=== PATIENT | female | born 1995 | race Caucasian/White ===

== ENCOUNTER 2017-07-28 17:41 | Emergency (ER) | payer OTHER ==
[2017-07-28] MEDS ORDERED: DIPHENHYDRAMINE 25 MG TAB/CAP ONE (19:25)
[2017-07-28] MEDS ORDERED: FAMOTIDINE 20 MG TAB ONE (19:25)
[2017-07-28] MEDS ORDERED: predniSONE 20 MG TAB ONE (19:26)
--- NOTE | 2017-07-28 20:03 | ER ---
Nurse's Notes [facility] Name: Kimmy Archer Age: 22 yrs Sex: Female : 1995 Arrival Date: 07/28/2017 Time: 17:44 Bed 11 Private MD: Diagnosis: Allergic contact dermatitis Presentation: 07/28 17:46 Presenting complaint: Patient states: i have poison fredis that i noticed last night in hj both arms, face, thigh, stomach; its itchy;. Transition of care: patient was not received from another setting of care. Onset of symptoms was July 28, 2017. Care prior to arrival: None. 17:46 Method Of Arrival: Ambulatory 17:46 Acuity: LILIANA 4 hj Triage Assessment: 17:47 General: Appears in no apparent distress. uncomfortable, Behavior is calm, cooperative, hj appropriate for age. Pain: Denies pain. 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 - Social history:: Smoking status: Patient/guardian denies using tobacco. Screenin:36 Abuse screen: Denies threats or abuse. Nutritional screening: No deficits noted. kb1 Tuberculosis screening: No symptoms or risk factors identified. Fall Risk None identified. 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 General: Appears in no apparent distress. Behavior is cooperative. Pain: Denies pain. Neuro: Level of Consciousness is awake, alert, obeys commands, Oriented to person, place, time, situation. Cardiovascular: Patient's skin is warm and dry. Respiratory: Respiratory effort is even, unlabored, Respiratory pattern is regular, symmetrical. GI: No signs and/or symptoms were reported involving the gastrointestinal system. : No signs and/or symptoms were reported regarding the genitourinary system. EENT:. Derm: Rash noted that is itchy, red, on right arm and left arm. 19:52 General: Appears in no apparent distress. Behavior is calm, cooperative, appropriate ao for age. Pain: Denies pain. Neuro: Level of Consciousness is awake, alert, obeys commands, Oriented to person, place, time, situation. Cardiovascular: Patient's skin is warm and dry. Respiratory: Airway is patent Trachea Respiratory effort is even, unlabored, Respiratory pattern is regular, symmetrical. GI: No signs and/or symptoms were reported involving the gastrointestinal system. : No signs and/or symptoms were reported regarding the genitourinary system. EENT: No signs and/or symptoms were reported regarding the EENT system. Derm: Rash noted that is itchy, red, on Arms. Vital Signs: 17:47 BP 103 / 60; Pulse 83; Resp 18; Temp 97.5(TE); Pulse Ox 100% on R/A; Weight 70.31 kg; hj Height 5 ft. 8 in. (172.72 cm); 19:54 BP 110 / 62; Pulse 78; Resp 18; Pulse Ox 98% ; ao 20:23 BP 95 / 48; Pulse 83; Resp 16; Pulse Ox 98% ; ao 17:47 Body Mass Index 23.57 (70.31 kg, 172.72 cm) ED Course: 17:44 Patient arrived in ED. rg4 17:46 Triage completed. hj 17:47 Arm band placed on right wrist. hj 18:22 Caitlin Wadsworth, IMELDA is Primary Nurse. kb1 18:24 Jones Reddy NP is PHCP. pm1 18:24 Tomas Brower MD is Attending Physician. pm1 18:36 Patient has correct armband on for positive identification. Call light in reach. kb1 Security at bedside. Sitting in chair, wheels locked. 19:09 Report given to Jamie SEGURA. kb1 19:09 No provider procedures requiring assistance completed. Patient did not have IV access kb1 during this emergency room visit. 19:52 Jamie Brannon RN is Primary Nurse. ao Administered Medications: 19:11 Drug: Pepcid 20 mg Route: PO; ao 19:11 Drug: Benadryl 25 mg Route: PO; ao 19:11 Drug: predniSONE 60 mg Route: PO; ao Outcome: 20:03 Discharge ordered by . pm1 20:23 Discharged to home ambulatory. ao 20:23 Condition: stable 20:23 Discharge instructions given to patient, Instructed on discharge instructions, follow up and referral plans. Demonstrated understanding of instructions, follow-up care, medications, Prescriptions given X 3. 20:24 Patient left the ED. ao Signatures: Sy Allison, RN RN Jamie Arcos RN RN ao Marinas, Patrick, PANEL MACHINE TENDER PANEL MACHINE TENDER pm1 Kirsty Suazo rg4 Caitlin Wadsworth RN RN kb1 Corrections: (The following items were deleted from the chart) 17:49 17:47 Pulse 83bpm; Resp 18bpm; Pulse Ox 100% RA; Temp 97.5F Temporal; 70.31 kg; Height hj 5 ft. 8 in.; BMI: 23.5; hj
--- NOTE | 2017-07-28 20:03 | EDPHYS ---
Physician Documentation [facility] Name: Kimmy Archer Age: 22 yrs Sex: Female : 1995 Arrival Date: 07/28/2017 Time: 17:44 Bed 11 Private MD: ED Physician Tomas Brower HPI: 07/28 22:00 This 22 yrs old Female presents to ER via Ambulatory with complaints of rash. pm1 22:00 The patient's rash thought to be caused by Contact allergy. The rash is located on the pm1 body diffusely. The rash can be described as macular, papular. Onset: The symptoms/episode began/occurred last night. Associated signs and symptoms: Pertinent positives: itching, sore throat, Pertinent negatives: burning sensation, difficulty breathing, fever, swelling of lips, swelling of tongue. Severity of symptoms: in the emergency department the symptoms are worse. Treatment given at home: Benadryl. The patient has experienced similar episodes in the past, a few times. The patient has not recently seen a physician. Patient is 32 week . Patient with prior exposure to poison fredis that caused her to have some difficulty with breathing and sensation of sore throat. Patient reports diffuse rash. 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 - Social history:: Smoking status: Patient/guardian denies using tobacco. ROS: 22:00 Constitutional: Negative for fever, chills, and weight loss, Eyes: Negative for injury, pm1 pain, redness, and discharge. 22:00 Neck: Negative for injury, pain, and swelling, Cardiovascular: Negative for chest pain, palpitations, and edema, Respiratory: Negative for shortness of breath, cough, wheezing, and pleuritic chest pain, Abdomen/GI: Negative for abdominal pain, nausea, vomiting, diarrhea, and constipation, Back: Negative for injury and pain, : Negative for injury, bleeding, discharge, and swelling, MS/Extremity: Negative for injury and deformity. 22:00 ENT: Positive for sore throat. 22:00 Skin: Positive for rash, diffusely. Exam: 22:00 Constitutional: This is a well developed, well nourished patient who is awake, alert, pm1 and in no acute distress. Head/Face: Normocephalic, atraumatic. Eyes: Pupils equal round and reactive to light, extra-ocular motions intact. Lids and lashes normal. Conjunctiva and sclera are non-icteric and not injected. Cornea within normal limits. Periorbital areas with no swelling, redness, or edema. ENT: Nares patent. No nasal discharge, no septal abnormalities noted. Tympanic membranes are normal and external auditory canals are clear. Oropharynx with no redness, swelling, or masses, exudates, or evidence of obstruction, uvula midline. Mucous membranes moist. Neck: Trachea midline, no thyromegaly or masses palpated, and no cervical lymphadenopathy. Supple, full range of motion without nuchal rigidity, or vertebral point tenderness. No Meningismus. Chest/axilla: Normal chest wall appearance and motion. Nontender with no deformity. No lesions are appreciated. Cardiovascular: Regular rate and rhythm with a normal S1 and S2. No gallops, murmurs, or rubs. Normal PMI, no JVD. No pulse deficits. Respiratory: Lungs have equal breath sounds bilaterally, clear to auscultation and percussion. No rales, rhonchi or wheezes noted. No increased work of breathing, no retractions or nasal flaring. 22:00 Back: No spinal tenderness. No costovertebral tenderness. Full range of motion. 22:00 Abdomen/GI: Inspection: gravid appearance, is noted. 22:00 Skin: consistent with contact dermatitis, and is diffusely located. 22:00 Neuro: Orientation: is normal, Motor: is normal, moves all fours, Gait: is steady, at a normal pace, without difficulty. Vital Signs: 17:47 BP 103 / 60; Pulse 83; Resp 18; Temp 97.5(TE); Pulse Ox 100% on R/A; Weight 70.31 kg; hj Height 5 ft. 8 in. (172.72 cm); 19:54 BP 110 / 62; Pulse 78; Resp 18; Pulse Ox 98% ; ao 20:23 BP 95 / 48; Pulse 83; Resp 16; Pulse Ox 98% ; ao 17:47 Body Mass Index 23.57 (70.31 kg, 172.72 cm) MDM: 18:24 Patient medically screened. pm1 18:49 Data reviewed: vital signs. Data interpreted: Pulse oximetry: on room air is 100 %. pm1 Interpretation: normal. 18:49 ED course: Patient 32 weeks . Patient with allergy to poison fredis and with pm1 exposure yesterday. Patient reports some sore throat scratchiness. Benefits of prednisone outweigh risks. 20:00 ED course: Sore throat sensation resolved and significant improvement in rash. pm1 20:02 Counseling: I had a detailed discussion with the patient and/or guardian regarding: the pm1 historical points, exam findings, and any diagnostic results supporting the discharge/admit diagnosis, the need for outpatient follow up, to return to the emergency department if symptoms worsen or persist or if there are any questions or concerns that arise at home. Administered Medications: 19:11 Drug: Pepcid 20 mg Route: PO; ao 19:11 Drug: Benadryl 25 mg Route: PO; ao 19:11 Drug: predniSONE 60 mg Route: PO; ao Disposition: 07/28/17 20:03 Discharged to Home. Impression: Allergic contact dermatitis. - Condition is Stable. - Discharge Instructions: Contact Dermatitis. - Prescriptions for Benadryl 25 mg Oral Capsule - take 1 capsule by ORAL route every 6 hours As needed; 30 tablet. Pepcid 20 mg Oral Tablet - take 1 tablet by ORAL route every 12 hours for 5 days; 10 tablet. Prednisone 20 mg Oral Tablet - take 2 tablet by ORAL route once daily for 5 days; 10 tablet. - Medication Reconciliation Form, Thank You Letter form. - Follow up: Emergency Department; When: As needed; Reason: Worsening of condition. Follow up: Private Physician; When: 2 - 3 days; Reason: Recheck today's complaints, Continuance of care, Re-evaluation by your physician. - Problem is new. - Symptoms have improved. Addendum: 07/31/2017 07:30 Co-signature as Attending Physician, Tomas Brower MD. g s Signatures: Sy Allison RN RN Jamie Brannon RN RN ao Jones Reddy, HEATING AND VENTILATING TENDER HEATING AND VENTILATING TENDER pm1 Tomas Brower MD MD Caitlin Wadsworth RN RN kb1
[2017-07-28 20:28] VITALS: TEMP 97.5
[2017-07-28 20:29] VITALS: O2SAT 98
[2017-07-28 20:30] VITALS: BP 95/48
== END 2017-07-28 20:24 | disposition home or self-care (01) ==
LOC: ER 17:41
DX: Z3A.32 32 weeks gestation of pregnancy; L23.7 Allergic contact dermatitis due to plants, except food
CPT/HCPCS: 99284; J7512

== ENCOUNTER 2017-09-13 02:13 | Inpatient (IN) | payer OTHER ==
[2017-09-13] MEDS ORDERED: PROMETHAZINE 25 MG/ML VIAL IM PRN (03:04)
[2017-09-13] MEDS ORDERED: BUTORPHANOL 1 MG/ML INJ IV PRN (03:04)
[2017-09-13] MEDS ORDERED: Ringers Lactate 1,000 ML IV PRN (03:04)
[2017-09-13] MEDS ORDERED: CARBOPROST TROME 250 MCG/ML IM PRN (03:04)
[2017-09-13] MEDS ORDERED: METHYLERGONOVINE 0.2MG/ML AMP IM PRN (03:04)
[2017-09-13] MEDS ORDERED: MEPERIDINE HCL 25 MG/0.5 ML IV PRN (03:04)
[2017-09-13 03:41] LABS: RPR Titer ND
[2017-09-13 03:47] LABS: Urine Appearance CLEAR; Urine Bilirubin NEGATIVE (NEG); Urine Blood NEGATIVE (NEG); Urine Color YELLOW; Urine Glucose NEGATIVE (NEG); Urine Protein NEGATIVE (NEG)
[2017-09-13 03:48] LABS: Urine Microscopic Reflex ORDER UMIC
[2017-09-13 03:50] LABS: Absolute Lymphocytes (CBC) 2.1 K/uL (0.7-4.9); Absolute Monocytes 0.6 K/uL (0.1-1.3); Absolute Neutrophil 7.2 K/uL (1.8-8.0); Basophils % 0.5 % (0-1.3); Eosinophils % 2.2 % (0-4.4); Hematocrit 32.7 % (36.0-45.0); Lymphocytes % 20.9 % (15.3-44.8); MCH 27.1 pg (27.0-35.0); MCV 82.7 fL (80-100); MPV 9.1 fL (7.6-11.3); Monocytes % 6.2 % (3.3-12.3); RBC Red Blood Cell Count 3.95 M/uL (3.86-4.86)
[2017-09-13 03:53] VITALS: BMI 26.3
[2017-09-13] MEDS ORDERED: Ringers Lactate 1,000 ML IV SCH (04:00)
[2017-09-13] MEDS ORDERED: FENTANYL CITR 100 MCG/2 ML IV ONE (04:08)
[2017-09-13] MEDS ORDERED: ROPIVACAINE HCL 100 ML IV PRN (04:08)
[2017-09-13] MEDS ORDERED: ROPIVACAINE HCL 2 MG/ML 100ML IV ONE (04:09)
[2017-09-13] MEDS ORDERED: LIDOCAINE 1% 20 ML MDV ONE (04:19)
[2017-09-13] MEDS ORDERED: OXYTOCIN/LR 20 UNIT/1,000 ML BAG IV ONE (04:20)
[2017-09-13 04:34] LABS: Urine RBC <5 /HPF (NONE SEEN)
[2017-09-13 04:35] LABS: Urine Bacteria 20-50 /HPF (<20); Urine Culture Reflex Order REFLEXED
[2017-09-13 04:50] LABS: RPR (Rapid Plasma Reagin) NON-REACT (NON-REACT)
[2017-09-13] MEDS ORDERED: OXYTOCIN/LR 20 UNIT/1,000 ML BAG IV SCH (05:00)
[2017-09-13] MEDS ORDERED: ROPIVACAINE HCL 0 ML ONE (05:06)
[2017-09-13] MEDS ORDERED: DIPHENHYDRAMINE 25 MG TAB/CAP PO PRN (05:55)
[2017-09-13] MEDS ORDERED: IBUPROFEN 200 MG TAB PO PRN (05:55)
[2017-09-13] MEDS ORDERED: BISACODYL 10 MG RECTAL SUPP RECT PRN (05:55)
[2017-09-13] MEDS ORDERED: ACETAMINOPHEN 500 MG TAB PO PRN (05:55)
[2017-09-13] MEDS ORDERED: DOCUSATE NA/SENNA CONC 1 TAB PO PRN (05:55)
[2017-09-13] MEDS ORDERED: OXYTOCIN/LR 20 UNITS/1,000 ML BAG IV SCH (06:00)
--- NOTE | 2017-09-13 06:34 | PREOPHP ---
Date of Admission: 09/13/2017 A 22-year-old, 5, para 3, AB1, 38 weeks and 5 days, patient of [facility], came in in active labor. Noted to be approximately 4 cm on admission, vertex, -2 to -3 station, henry regularly. When first examined by myself was 7 to 8 cm and said she needed to push. Rupture of membranes was perfor med. Clear fluid obtained. The patient began pushing against advice, did dilate to about 8.5 to 9, but requested epidural and we told her if she does not push we could possibly have time to do the epi dural. Anesthesia has been notified. Baby is at about 0 station. We will see if they have time to complete the epidural. She has recollection of being beta strep negative. We have no other lab that is pending. Her vital signs are all stable. The baby looks good. Anticipate delivery rel atively soon. PIOTR/JJ Voice ID: [id number]
--- NOTE | 2017-09-13 06:55 | OP ---
Surgeon: Endy Olivo MD A 22-year-old, 5, para 3, [facility] patient, drop in, came in active labor, 4 cm on admission, con tracting every 2 to 3 minutes. When first examined by myself was 7 to 8 cm, rupture of membranes, cl ear fluid. Epidural anesthesia was established at the patient's request. Second stage of 10 minutes or less. Spontaneous vaginal delivery of an estimated 8 pounds or more male infant. Apgars 9 and 9 . No episiotomy. No laceration. Schultze delivery of the placenta. Uterus contracted down well wi th IV drip Pitocin. Estimated blood loss 250 cc or less. All lab is pending at this time. Beta str ep test was negative according to the patient. Final Diagnoses: Intrauterine gestation, 38 weeks 5 days, [facility], drop in delivery, beta strep negativ e, other labs pending. PIOTR/JJ Voice ID: [id number] Report ID: [id number]
[2017-09-13] MEDS: Oxycodone HCl/Acetaminophen 1 TAB TAB PO PRN ×2 (11:29→18:01)
[2017-09-14] MEDS: Oxycodone HCl/Acetaminophen 1 TAB TAB PO PRN ×2 (05:25→09:16)
[2017-09-14] MEDS ORDERED: Tdap (Diph,Pertuss(Acell),Tet Vac) 0.5 ML SYR IMVAC ONE (08:51)
[2017-09-14 10:12] VITALS: BP 118/58; TEMP 98
--- NOTE | 2017-09-14 16:10 | DS ---
Date of Discharge: 09/14/2017 Hospital Course: A 22-year-old 4, para 2, AB 1, at 38 weeks 5 days, [facility] patient, came in ac tive labor. Subsequently delivered an 8 pounds estimated, male . Apgars 9 and 9. Epidural an esthesia. No episiotomy. No laceration. Schultze delivery of the placenta, which was inspected and noted to be intact and normal. Less than 250 cc blood loss. Beta-strep negative. Rh positive, imm une to Rubella. . Afebrile, ambulating and voiding. Lochia is normal. She will be dismi ssed later this morning to report back either at [facility] or to my office in 6 weeks for followup, to rep ort any temperature elevation of 100 degrees or greater, severe pain, heavy bleeding, or any other ty pe of abnormalities. Dismissed with tramadol for analgesia, although she knows this goes to the [facility], and she may choose to take Motrin instead. Final Diagnoses: Term intrauterine 38 weeks 5 days, vaginal delivery, epidural anesthesia. Tdap offered. PIOTR/JJ Voice ID: [id number] Report ID: [id number]
[2017-09-17 05:31] LABS: HBsAG Nonreactive (Nonreactive)
== END 2017-09-14 10:00 | disposition home or self-care (01) | DRG 775 ==
LOC: L&D 02:13 → 2ND-WC 02:41
PROVIDERS: ADMIT Specialist; ATTEND Specialist
PROC: 10E0XZZ Delivery of Products of Conception, External Approach (ICD-10-PCS; principal; 2017-09-13)
PROC: 10907ZC Drainage of Amniotic Fluid, Therapeutic from Products of Conception, Via Natural or Artificial Opening (ICD-10-PCS; 2017-09-13)
DX: O80 Encounter for full-term uncomplicated delivery (principal); Z3A.38 38 weeks gestation of pregnancy; Z37.0 Single live birth
CPT/HCPCS: 36415; 81003; 81015; 85025; 86592; 86762; 86850; 86900; 86901; 87086; 87088; 87340; 90715; G0433; J0595; J2210; J2550; J2590; J2795; J3010

== ENCOUNTER 2019-03-09 15:57 | Emergency (ER) | payer OTHER, SELFPAY ==
--- NOTE | 2019-03-09 18:34 | ER ---
Nurse's Notes [facility] Name: Kimmy Archer Age: 24 yrs Sex: Female : 1995 Arrival Date: 03/09/2019 Time: 16:01 Bed 27 Private MD: Diagnosis: Presentation: 03/09 16:20 Presenting complaint: N/V/D and lower abdominal pain that radiates to low back x 3 hb days. Denies fever. Tolerating fluids. Transition of care: patient was not received from another setting of care. Onset of symptoms was March 06, 2019. Risk Assessment: Do you want to hurt yourself or someone else? Patient reports no desire to harm self or others. Care prior to arrival: None. 16:20 Method Of Arrival: Ambulatory hb 16:20 Acuity: LILIANA 3 hb Historical: - Allergies: 16:22 No Known Allergies; hb - Home Meds: 16:22 None [Active]; hb - PMHx: 16:22 None; hb - PSHx: 16:22 None; hb - Immunization history:: Adult Immunizations up to date. - Social history:: Smoking status: Patient/guardian denies using tobacco. - Ebola Screening: : No symptoms or risks identified at this time. Vital Signs: 16:22 BP 92 / 53; Pulse 93; Resp 16; Temp 99; Pulse Ox 98% ; Weight 63.5 kg; Height 5 ft. 8 hb in. (172.72 cm); Pain 5/10; 16:22 Body Mass Index 21.29 (63.50 kg, 172.72 cm) hb ED Course: 16:01 Patient arrived in ED. mr 16:21 Triage completed. hb 16:22 Arm band placed on. hb 17:20 Patient's name was called from ER lobby. No response. hb 17:40 Patient's name was called from ER lobby. No response. hb 18:20 Patient's name was called from ER lobby. No response. Unable to locate patient. Will hb disposition as left without being seen by a provider. Administered Medications: No medications were administered Outcome: 18:33 Patient left the ED. hb Signatures: Carrie Harris Heather RN RN hb
[2019-03-09 20:11] VITALS: BP 92/53; TEMP 99; O2SAT 98
--- OUTSIDE RECORDS SUMMARY | 2019-03-15 00:01 | XMS REPORT ---
:1995 [facility] Address [address] [place] [address] Dr. Boyce [address] [place] [id number] Care Team Providers Name Role Phone Unavailable Unavailable Unavailable Problems This patient has no known problems. Allergies, Adverse Reactions, Alerts This patient has no known allergies or adverse reactions. Medications This patient has no known medications.
== END 2019-03-09 18:33 | disposition left against medical advice (07) ==
LOC: ER 15:57
DX: Z53.21 Procedure and treatment not carried out due to patient leaving prior to being seen by health care provider (principal)
CPT/HCPCS: 99281

== ENCOUNTER 2019-03-17 16:14 | Emergency (ER) | payer SELFPAY ==
--- OUTSIDE RECORDS SUMMARY | 2019-03-17 16:16 | XMS REPORT ---
:1995 [facility] Address [address] [place] [address] Dr. Boyce [address] [place] [id number] Care Team Providers Name Role Phone Unavailable Unavailable Unavailable Problems This patient has no known problems. Allergies, Adverse Reactions, Alerts This patient has no known allergies or adverse reactions. Medications This patient has no known medications.
[2019-03-17 16:51] LABS: Absolute Lymphocytes (CBC) 1.8 K/uL (0.7-4.9); Basophils % 0.8 % (0-1.3); Hematocrit 35.7 % (36.0-45.0); Lymphocytes % 22.6 % (15.3-44.8); MPV 7.8 fL (7.6-11.3); RBC Red Blood Cell Count 3.96 M/uL (3.86-4.86)
[2019-03-17] MEDS ORDERED: ONDANSETRON 4 MG/2 ML VIAL ONE (17:00)
[2019-03-17 17:02] LABS: Urine Blood 1+ (NEG); Urine Glucose NEGATIVE (NEG); Urine Protein NEGATIVE (NEG)
[2019-03-17 17:14] LABS: ALT/SGPT 16 U/L (12-78); AST/SGOT 13 U/L (15-37); Albumin 3.4 g/dL (3.4-5.0); Alkaline Phosphatase 45 U/L (45-117); BUN Blood Urea Nitrogen 5 mg/dL (7-18); Bicarbonate 27 mmol/L (21-32); Bilirubin Direct 0.1 mg/dL (0-0.2); Bilirubin Total 0.3 mg/dL (0.2-1.0); Glucose Level 97 mg/dL (74-106); Lipase 54 U/L (73-393); Protein, Total 6.6 g/dL (6.4-8.2); Sodium Level 139 mmol/L (136-145)
[2019-03-17 17:27] LABS: Urine Bacteria <20 /HPF (<20); Urine Culture Reflex Order NOT NEEDED; Urine Mucus 1+ /HPF (NONE SEEN)
--- NOTE | 2019-03-17 17:52 | RAD REPORT ---
EXAM DESCRIPTION: US - Transvaginal OB - 03/17/2019 5:28 pm CLINICAL HISTORY: with pelvic pain COMPARISON: None. FINDINGS: An intrauterine in breech presentation is present. The crown-rump length 6.7 jesse timeters. . Cardiac activity 152 beats per minute. The placenta is posterior fundal Neither ovary was visualized. . An adnexal mass is not noted. No significant free fluid is seen. Cervix measures 2.7 centimeters IMPRESSION: Single live intrauterine with an estimated gestational age 13 weeks 0 days ED D 09/22/2019. If a survey is desired it should be performed in approximately 5 weeks
--- NOTE | 2019-03-17 18:08 | ER ---
Nurse's Notes [facility] Name: Kimmy Archer Age: 24 yrs Sex: Female : 1995 Arrival Date: 03/17/2019 Time: 16:16 Bed 6 Private MD: Diagnosis: Lower abdominal pain, unspecified;Vomiting of , unspecified Presentation: 03/17 16:21 Presenting complaint: Lower abdominal pain and N/V x 4 days. Not tolerating fluids. hb Denies fever. Transition of care: patient was not received from another setting of care. Onset of symptoms was March 13, 2019. Risk Assessment: Do you want to hurt yourself or someone else? Patient reports no desire to harm self or others. Care prior to arrival: None. 16:21 Method Of Arrival: Ambulatory hb 16:21 Acuity: LILIANA 3 hb 16:40 Initial Sepsis Screen: Does the patient meet any 2 criteria? No. Patient's initial sv sepsis screen is negative. Does the patient have a suspected source of infection? No. Patient's initial sepsis screen is negative. 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 - Social history:: Smoking status: Patient uses tobacco products, smokes one pack cigarettes per day. - Ebola Screening: : No symptoms or risks identified at this time. Screenin:40 Abuse screen: Denies threats or abuse. Denies injuries from another. Nutritional sv screening: No deficits noted. Tuberculosis screening: No symptoms or risk factors identified. Fall Risk None identified. Assessment: 16:35 General: Appears in no apparent distress. uncomfortable, slender, well developed, sv Behavior is calm, cooperative, appropriate for age. Pain: Complains of pain in suprapubic area Pain currently is 4 out of 10 on a pain scale. Neuro: Level of Consciousness is awake, alert, obeys commands, Oriented to person, place, time, situation, Gait is steady. Respiratory: Airway is patent Respiratory effort is even, unlabored, Respiratory pattern is regular, symmetrical. GI: Abdomen is round Reports lower abdominal pain, intolerance of food, nausea, vomiting. EENT: Sclera/Cornea are reddened in right eye and left eye. Derm: Skin is pink, warm \T\ dry. 17:09 Reassessment: Called outside lab and informed that I would be sending a lab label for sv an HCG to be ran as well, blood is in the outside lab. Ok to send label. 18:28 Reassessment: Patient appears in no apparent distress at this time. No changes from sv previously documented assessment. Patient and/or family updated on plan of care and expected duration. Pain level reassessed. Patient is alert, oriented x 3, equal unlabored respirations, skin warm/dry/pink. Vital Signs: 16:22 BP 106 / 54; Pulse 88; Resp 16; Temp 98.1; Pulse Ox 100% on R/A; Weight 61.23 kg; hb Height 5 ft. 8 in. (172.72 cm); Pain 4/10; 17:41 BP 97 / 60; Pulse 62; Resp 16; Pulse Ox 100% ; sv 18:27 BP 91 / 60; Pulse 61; Resp 16; Pulse Ox 100% ; sv 16:22 Body Mass Index 20.53 (61.23 kg, 172.72 cm) hb ED Course: 16:16 Patient arrived in ED. rg4 16:22 Triage completed. hb 16:22 Arm band placed on. hb 16:25 Kris Warner PA is PHCP. jr8 16:25 Rene Chahal MD is Attending Physician. jr8 16:28 Maty Lama, IMELDA is Primary Nurse. iw 16:40 Patient has correct armband on for positive identification. Placed in gown. Bed in low sv position. Call light in reach. Adult w/ patient. Door closed. Warm blanket given. Head of bed elevated. 16:40 Initial lab(s) drawn, by me, sent to lab. Inserted saline lock: 20 gauge in right sv antecubital area, using aseptic technique. Blood collected. Flushed right antecubital with 5 ml normal saline. 16:44 Nurse Practitioner and/or Physician Principal Investigator to see patient. sv 17:12 Patient taken to ultrasound. via wheelchair. sv 17:29 US Transvaginal Ob In Process Unspecified. EDMS 17:42 Awaiting lab results, Awaiting radiology results. sv 18:28 No provider procedures requiring assistance completed. IV discontinued, intact, sv bleeding controlled, No redness/swelling at site. Pressure dressing applied. Administered Medications: 16:57 Not Given (Physician Discretion): TORadol - Ketorolac 15 mg IVP once jr8 17:05 Drug: Zofran 4 mg Route: IVP; Site: right antecubital; sv 17:45 Follow up: Response: No adverse reaction; Nausea is decreased sv 18:26 Drug: Potassium Chloride 40 mEq Route: PO; sv 18:26 Follow up: Response: Medication administered at discharge. sv Outcome: 18:08 Discharge ordered by MD. jr8 18:28 Discharged to home ambulatory, with family. sv 18:28 Condition: stable 18:28 Discharge instructions given to patient, Instructed on discharge instructions, follow up and referral plans. medication usage, Demonstrated understanding of instructions, follow-up care, medications, Prescriptions given X 1. 18:28 Patient left the ED. sv Signatures: Dispatcher [employer] Maty Saez RN RN sv Williams, Irene, RN RN iw Roszak, Josh, PA PA jr8 Faby Adams RN RN hb Garcia, Rubi rg4
--- NOTE | 2019-03-17 18:08 | EDPHYS ---
Physician Documentation [facility] Name: Kimmy Archer Age: 24 yrs Sex: Female : 1995 Arrival Date: 03/17/2019 Time: 16:16 Bed 6 Private MD: ED Physician Rene Chahal HPI: 03/17 17:05 This 24 yrs old Female presents to ER via Ambulatory with complaints of jr8 Vomiting, Abdominal Pain. 17:05 The patient presents to the emergency department with nausea, vomiting, abdominal pain, jr8 of the suprapubic area. Onset: The symptoms/episode began/occurred gradually, 1 week(s) ago. Possible causes: unknown. The symptoms are aggravated by nothing. The symptoms are alleviated by nothing. Associated signs and symptoms: The patient has no apparent associated signs or symptoms. Severity of symptoms: At their worst the symptoms were moderate in the emergency department the symptoms are unchanged. The patient has not experienced similar symptoms in the past. The patient has not recently seen a physician. DENTAL RESIDENT: 16:22 LMP 03/05/2019 hb Historical: - Allergies: 16:24 No Known Allergies; hb - Home Meds: 16:24 None [Active]; hb - PMHx: 16:24 None; hb - PSHx: 16:24 None; hb - Immunization history:: Adult Immunizations up to date. - Social history:: Smoking status: Patient uses tobacco products, smokes one pack cigarettes per day. - Ebola Screening: : No symptoms or risks identified at this time. ROS: 17:05 Eyes: Negative for injury, pain, redness, and discharge, ENT: Negative for injury, jr8 pain, and discharge, Neck: Negative for injury, pain, and swelling, Cardiovascular: Negative for chest pain, palpitations, and edema, Respiratory: Negative for shortness of breath, cough, wheezing, and pleuritic chest pain, Back: Negative for injury and pain, MS/Extremity: Negative for injury and deformity, Skin: Negative for injury, rash, and discoloration, Neuro: Negative for headache, weakness, numbness, tingling, and seizure. 17:05 Abdomen/GI: Positive for abdominal pain, nausea and vomiting, Negative for diarrhea, abdominal cramps, abdominal distension, anorexia, dysphagia, hematemesis, black/tarry stool, rectal pain, rectal bleeding, bowel incontinence, flatulence. Exam: 17:05 Eyes: Pupils equal round and reactive to light, extra-ocular motions intact. Lids and jr8 lashes normal. Conjunctiva and sclera are non-icteric and not injected. Cornea within normal limits. Periorbital areas with no swelling, redness, or edema. ENT: Nares patent. No nasal discharge, no septal abnormalities noted. Tympanic membranes are normal and external auditory canals are clear. Oropharynx with no redness, swelling, or masses, exudates, or evidence of obstruction, uvula midline. Mucous membranes moist. Neck: Trachea midline, no thyromegaly or masses palpated, and no cervical lymphadenopathy. Supple, full range of motion without nuchal rigidity, or vertebral point tenderness. No Meningismus. Cardiovascular: Regular rate and rhythm with a normal S1 and S2. No gallops, murmurs, or rubs. Normal PMI, no JVD. No pulse deficits. Respiratory: Lungs have equal breath sounds bilaterally, clear to auscultation and percussion. No rales, rhonchi or wheezes noted. No increased work of breathing, no retractions or nasal flaring. Back: No spinal tenderness. No costovertebral tenderness. Full range of motion. Skin: Warm, dry with normal turgor. Normal color with no rashes, no lesions, and no evidence of cellulitis. MS/ Extremity: Pulses equal, no cyanosis. Neurovascular intact. Full, normal range of motion. Neuro: Awake and alert, GCS 15, oriented to person, place, time, and situation. Cranial nerves II-XII grossly intact. Motor strength 5/5 in all extremities. Sensory grossly intact. Cerebellar exam normal. Normal gait. 17:05 Abdomen/GI: Inspection: abdomen appears normal, Bowel sounds: active, all quadrants, Palpation: soft, in all quadrants, mild abdominal tenderness, in the suprapubic area, mass, is not appreciated, rebound tenderness, is not appreciated, voluntary guarding, is not appreciated, involuntary guarding, is not appreciated, no appreciated organomegaly, Indicators: McBurney's point is not tender, Stern's sign is negative, Rovsing's sign is negative, Liver: tenderness, is not appreciated. Vital Signs: 16:22 BP 106 / 54; Pulse 88; Resp 16; Temp 98.1; Pulse Ox 100% on R/A; Weight 61.23 kg; hb Height 5 ft. 8 in. (172.72 cm); Pain 4/10; 17:41 BP 97 / 60; Pulse 62; Resp 16; Pulse Ox 100% ; sv 18:27 BP 91 / 60; Pulse 61; Resp 16; Pulse Ox 100% ; sv 16:22 Body Mass Index 20.53 (61.23 kg, 172.72 cm) hb MDM: 16:25 Patient medically screened. [facility] 18:06 Data reviewed: vital signs, nurses notes, lab test result(s), radiologic studies, [facility] ultrasound. Data interpreted: Pulse oximetry: on room air is 100 %. Interpretation: normal. Counseling: I had a detailed discussion with the patient and/or guardian regarding: the historical points, exam findings, and any diagnostic results supporting the discharge/admit diagnosis, lab results, radiology results, the need for outpatient follow up, an OB/Gyne specialist, to return to the emergency department if symptoms worsen or persist or if there are any questions or concerns that arise at home. 03/17 16:33 Order name: Basic Metabolic Panel; Complete Time: 17:14 [facility] 03/17 16:33 Order name: CBC with Diff; Complete Time: 17:14 [facility] 03/17 16:33 Order name: Creatinine for Radiology; Complete Time: 17:14 [facility] 03/17 16:33 Order name: Hepatic Function; Complete Time: 17:14 [facility] 03/17 16:33 Order name: Lipase; Complete Time: 17:14 [facility] 03/17 16:51 Order name: Urine Microscopic Only; Complete Time: 17:36 [facility] 03/17 16:33 Order name: IV Saline Lock; Complete Time: 16:44 [facility] 03/17 16:57 Order name: HCG-Quantitative; Complete Time: 18:26 [facility] 03/17 16:57 Order name: US Transvaginal Ob; Complete Time: 18:06 [facility] 03/17 17:01 Order name: Urine Dipstick--Ancillary (enter results); Complete Time: 17:14 03/17 17:01 Order name: Urine --Ancillary (enter results); Complete Time: 17:14 03/17 16:33 Order name: Labs collected and sent; Complete Time: 16:44 [facility] 03/17 16:50 Order name: Urine Test (obtain specimen); Complete Time: 16:52 jr8 03/17 16:50 Order name: Urine Dipstick-Ancillary (obtain specimen); Complete Time: 17:12 8 Administered Medications: 16:57 Not Given (Physician Discretion): TORadol - Ketorolac 15 mg IVP once jr8 17:05 Drug: Zofran 4 mg Route: IVP; Site: right antecubital; sv 17:45 Follow up: Response: No adverse reaction; Nausea is decreased sv 18:26 Drug: Potassium Chloride 40 mEq Route: PO; sv 18:26 Follow up: Response: Medication administered at discharge. sv Disposition: 03/17/19 18:08 Discharged to Home. Impression: Lower abdominal pain, unspecified, Vomiting of , unspecified. - Condition is Stable. - Discharge Instructions: Abdominal Pain, Adult, Morning Sickness. - Prescriptions for promethazine 25 mg Oral Tablet - take 1 tablet by ORAL route every 6 hours As needed; 20 tablet. - Medication Reconciliation Form, Thank You Letter, Antibiotic Education, Prescription Opioid Use form. - Follow up: Private Physician; When: 2 - 3 days; Reason: Recheck today's complaints, Continuance of care, Re-evaluation by your physician. - Problem is new. - Symptoms have improved. Addendum: 03/20/2019 19:33 Co-signature as Attending Physician, Rene Chahal MD. r n Signatures: Dispatcher [employer] Maty Saez RN RN sv Nieto, Roman, MD MD rn Roszak, Josh, PA PA jr8 Faby Adams RN RN Corrections: (The following items were deleted from the chart) 03/17 18:28 18:08 03/17/2019 18:08 Discharged to Home. Impression: Lower abdominal pain, sv unspecified; Vomiting of , unspecified. Condition is Stable. Forms are Medication Reconciliation Form, Thank You Letter, Antibiotic Education, Prescription Opioid Use. Follow up: Private Physician; When: 2 - 3 days; Reason: Recheck today's complaints, Continuance of care, Re-evaluation by your physician. Problem is new. Symptoms have improved. jr8
[2019-03-17] MEDS ORDERED: POTASSIUM CL SA 10 MEQ TAB PO ONE (18:18)
[2019-03-17 19:34] VITALS: TEMP 98.1; O2SAT 100
[2019-03-17 19:37] VITALS: BP 91/60
== END 2019-03-17 18:28 | disposition home or self-care (01) ==
LOC: ER 16:14
DX: O21.8 Other vomiting complicating pregnancy (principal); R10.30 Lower abdominal pain, unspecified; Z3A.13 13 weeks gestation of pregnancy; F17.210 Nicotine dependence, cigarettes, uncomplicated
CPT/HCPCS: 36415; 76817; 80048; 80076; 81003; 81015; 81025; 83690; 84702; 85025; 96374; 99284; J2405

== ENCOUNTER 2019-10-11 09:23 | Emergency (ER) | payer OTHER ==
[2019-10-11] MEDS ORDERED: ACETAMINOPHEN 500 MG TAB ONE (10:46)
--- NOTE | 2019-10-11 11:23 | EDPHYS ---
Physician Documentation [facility] Name: Kimmy Archer Age: 24 yrs Sex: Female : 1995 Arrival Date: 10/11/2019 Time: 09:27 Bed 8 Private MD: Maty Petersen ED Physician Juan Carlos Kilpatrick HPI: 10/11 07:26 This 24 yrs old Female presents to ER via Ambulatory with complaints of Fall kdr Injury, Facial Injury. 07:26 Details of fall: The patient fell from an upright position, while walking. Onset: The kdr symptoms/episode began/occurred suddenly, today. Associated injuries: The patient sustained Lower lip and left anterior tibia. Severity of symptoms: At their worst the symptoms were very mild, in the emergency department the symptoms are unchanged. The patient has not experienced similar symptoms in the past. The patient has not recently seen a physician. Historical: - Allergies: 10/10 10:07 No Known Allergies; ss - Home Meds: 10:07 None [Active]; ss - PMHx: 10:07 None; ss - PSHx: 10:07 None; ss - Immunization history:: Adult Immunizations up to date. - Social history:: Smoking status: Patient denies any tobacco usage or history of. ROS: 10/11 07:26 Constitutional: Negative for fever, chills, and weight loss, Eyes: Negative for injury, kdr pain, redness, and discharge, Neck: Negative for injury, pain, and swelling, Cardiovascular: Negative for chest pain, palpitations, and edema, Respiratory: Negative for shortness of breath, cough, wheezing, and pleuritic chest pain, Abdomen/GI: Negative for abdominal pain, nausea, vomiting, diarrhea, and constipation, Back: Negative for injury and pain, : Negative for injury, bleeding, discharge, and swelling, MS/Extremity: Negative for injury and deformity, Neuro: Negative for headache, weakness, numbness, tingling, and seizure activity. Psych: Negative for depression, anxiety, suicide ideation, homicidal ideation, and hallucinations, Allergy/Immunology: Negative for hives, rash, and allergies, Endocrine: Negative for neck swelling, polydipsia, polyuria, polyphagia, and marked weight changes, Hematologic/Lymphatic: Negative for swollen nodes, abnormal bleeding, and unusual bruising. Skin: Positive for abrasion(s), of the lower sharan border and left mahajan. Exam: 07:26 Constitutional: This is a well developed, well nourished patient who is awake, alert, kdr and in no acute distress. Head/Face: Normocephalic, atraumatic. Eyes: Pupils equal round and reactive to light, extra-ocular motions intact. Lids and lashes normal. Conjunctiva and sclera are non-icteric and not injected. Cornea within normal limits. Periorbital areas with no swelling, redness, or edema. Neck: Trachea midline, no thyromegaly or masses palpated, and no cervical lymphadenopathy. Supple, full range of motion without nuchal rigidity, or vertebral point tenderness. No Meningismus. Chest/axilla: Normal chest wall appearance and motion. Nontender with no deformity. No lesions are appreciated. Cardiovascular: Regular rate and rhythm with a normal S1 and S2. No gallops, murmurs, or rubs. Normal PMI, no JVD. No pulse deficits. Respiratory: Lungs have equal breath sounds bilaterally, clear to auscultation and percussion. No rales, rhonchi or wheezes noted. No increased work of breathing, no retractions or nasal flaring. Abdomen/GI: Soft, non-tender, with normal bowel sounds. No distension or tympany. No guarding or rebound. No evidence of tenderness throughout. Back: No spinal tenderness. No costovertebral tenderness. Full range of motion. MS/ Extremity: Pulses equal, no cyanosis. Neurovascular intact. Full, normal range of motion. Neuro: Awake and alert, GCS 15, oriented to person, place, time, and situation. Cranial nerves II-XII grossly intact. Motor strength 5/5 in all extremities. Sensory grossly intact. Cerebellar exam normal. Normal gait. Psych: Awake, alert, with orientation to person, place and time. Behavior, mood, and affect are within normal limits. 07:26 Skin: injury, abrasion(s), small abrasion noted, of the lower sharan border and left mahajan. Vital Signs: 10/10 10:04 BP 110 / 73; Pulse 81; Resp 15; Temp 98.6(TE); Pulse Ox 99% on R/A; Weight 61.23 kg; ss Height 5 ft. 8 in. (172.72 cm); Pain 12/12; 11:26 BP 109 / 69; Pulse 75; Resp 17; Temp 98.6; Pulse Ox 98% ; bp 10:04 Body Mass Index 20.53 (61.23 kg, 172.72 cm) MDM: 11:22 Patient medically screened. kdr 10/11 07:26 Data reviewed: vital signs, nurses notes. Counseling: I had a detailed discussion with kdr the patient and/or guardian regarding: the historical points, exam findings, and any diagnostic results supporting the discharge/admit diagnosis, the need for outpatient follow up. 10/10 10:28 Order name: Corrina. Order: clean and dress wounds on lip; Complete Time: 10:56 kdr Administered Medications: 10/10 10:40 Drug: Tylenol 1000 mg Route: PO; bp 11:26 Follow up: Response: Pain is decreased bp Disposition: 10/11/19 11:22 Discharged to Home. Impression: Facial abrasions/contusions, left tibial abrasions. - Condition is Stable. - Discharge Instructions: Contusion, [id number], Abrasion, Hqqv-[id number], Facial or Scalp Contusion, [id number]. - Medication Reconciliation Form, Thank You Letter, Work release form form. - Follow up: Juan Carlos Kilpatrick MD; When: 2 - 3 days; Reason: If symptoms return, Further diagnostic work-up, Recheck today's complaints, Continuance of care, Re-evaluation by your physician. - Problem is new. - Symptoms have improved. Signatures: Juan Carlos Kilpatrick MD MD kdr Diamond Lan RN RN Bang Browne RN RN jl7 Neri Booker, RN RN bp Corrections: (The following items were deleted from the chart) 11:30 11:22 10/11/2019 11:22 Discharged to Home. Impression: Facial abrasions/contusions, jl7 left tibial abrasions. Condition is Stable. Forms are Medication Reconciliation Form, Thank You Letter, Antibiotic Education, Prescription Opioid Use. Follow up: Dr. Juan Carlos Kilpatrick; When: 2 - 3 days; Reason: If symptoms return, Further diagnostic work-up, Recheck today's complaints, Continuance of care, Re-evaluation by your physician. Problem is new. Symptoms have improved. kdr
--- NOTE | 2019-10-11 11:23 | ER ---
Nurse's Notes [facility] Name: Kimmy Archer Age: 24 yrs Sex: Female : 1995 Arrival Date: 10/11/2019 Time: 09:27 Bed 8 Private MD: Maty Petersen Diagnosis: Facial abrasions/contusions, left tibial abrasions Presentation: 10/10 10:04 Chief complaint: Patient states: R lower lip laceration and abrasion to L mahajan that ss occurred after falling down stairs this morning at 0800. Coronavirus screen: Proceed with normal triage. Patient denies a cough. Patient denies shortness of breath or difficulty breathing. Patient denies measured and/or subjective temperature greater than 100.4F prior to today's visit. Patient denies travel on a cruise ship or to a country the [facility] currently lists as an affected area. Patient denies contact with known and/or suspected case of COVID-19. Ebola Screen: Patient denies exposure to infectious person. Patient denies travel to an Ebola-affected area in the 21 days before illness onset. Initial Sepsis Screen: Does the patient meet any 2 criteria? No. Patient's initial sepsis screen is negative. Does the patient have a suspected source of infection? No. Patient's initial sepsis screen is negative. Risk Assessment: Do you want to hurt yourself or someone else? Patient reports no desire to harm self or others. Onset of symptoms was October 11, 2019. 10:04 Method Of Arrival: Ambulatory ss 10:04 Acuity: LILIANA 4 ss Triage Assessment: 10:05 General: Appears in no apparent distress. comfortable, Behavior is calm, cooperative, bp appropriate for age. Pain: Denies pain. EENT: No deficits noted. Neuro: No deficits noted. Cardiovascular: No deficits noted. Respiratory: No deficits noted. GI: No signs and/or symptoms were reported involving the gastrointestinal system. : No signs and/or symptoms were reported regarding the genitourinary system. Derm: No deficits noted. Musculoskeletal: No deficits noted. Injury Description: Abrasion sustained to left mahajan Laceration sustained to mouth. Historical: - Allergies: 10:07 No Known Allergies; ss - Home Meds: 10:07 None [Active]; ss - PMHx: 10:07 None; ss - PSHx: 10:07 None; ss - Immunization history:: Adult Immunizations up to date. - Social history:: Smoking status: Patient denies any tobacco usage or history of. Screenin:05 Abuse screen: Denies threats or abuse. Denies injuries from another. Nutritional bp screening: No deficits noted. Tuberculosis screening: No symptoms or risk factors identified. Fall Risk Fall in past 12 months (25 points). No secondary diagnosis (0 pts). No IV (0 pts). Ambulatory Aid- None/Bed Rest/Nurse Assist (0 pts). Gait- Normal/Bed Rest/Wheelchair (0 pts) Mental Status- Oriented to own ability (0 pts). Total Brown Fall Scale indicates Low Risk Score (25-44 pts). Fall prevention measures have been instituted. Side Rails Up X 2 Placed close to Nursing Station Frequent Obs/Assesments occuring As available Patient and Family Educated on Fall Prevention Program and strategies. Assessment: 10:05 General: SEE TRIAGE NOTE. bp 11:26 Reassessment: PT D/C HOME AMBULATORY, DX WITH FACIAL AND LEFT TIBIAL ABRASIONS. bp Vital Signs: 10:04 BP 110 / 73; Pulse 81; Resp 15; Temp 98.6(TE); Pulse Ox 99% on R/A; Weight 61.23 kg; ss Height 5 ft. 8 in. (172.72 cm); Pain 8/10; 11:26 BP 109 / 69; Pulse 75; Resp 17; Temp 98.6; Pulse Ox 98% ; bp 10:04 Body Mass Index 20.53 (61.23 kg, 172.72 cm) ED Course: 09:27 Patient arrived in ED. mr 09:27 Maty Petersen is Private Physician. mr 10:06 Triage completed. ss 10:07 Arm band placed on right wrist. ss 10:10 Patient has correct armband on for positive identification. Bed in low position. Call bp light in reach. Side rails up X2. 10:21 Juan Carlos Kilpatrick MD is Attending Physician. kdr 10:39 Neri Booker, IMELDA is Primary Nurse. bp 11:20 Juan Carlos Kilpatrick MD is Referral Physician. kdr 11:26 No provider procedures requiring assistance completed. Patient did not have IV access bp during this emergency room visit. Administered Medications: 10:40 Drug: Tylenol 1000 mg Route: PO; bp 11:26 Follow up: Response: Pain is decreased bp Outcome: 11:22 Discharge ordered by . kdr 11:27 Discharged to home ambulatory. bp 11:27 Condition: stable 11:27 Discharge instructions given to patient, Instructed on discharge instructions, follow up and referral plans. wound care, Demonstrated understanding of instructions, follow-up care, wound care. 11:30 Patient left the ED. jl7 Signatures: Juan Carlos Kilpatrick MD MD kdr Rivera, Mary mr Diamond Lan RN RN ss Bang Browne RN RN jl7 Neri Booker RN RN bp
[2019-10-11 11:35] VITALS: TEMP 98.6
[2019-10-11 11:36] VITALS: BP 109/69; O2SAT 98
--- OUTSIDE RECORDS SUMMARY | 2019-10-11 12:22 | XMS REPORT | Continuity of Care Document ---
:1995 Author Organization [facility] t Address [address] [place] [place] [address] Care Team Providers Name Role Phone Ad Thomson Attending Clinician Problems This patient has no known problems. Allergies, Adverse Reactions, Alerts This patient has no known allergies or adverse reactions. Medications This patient has no known medications. Procedures This patient has no known procedures. Encounters Start End Encounter Admission Attending Care Care Encounter Source Date/Time Date/Time Type Type Clinicians Facility Department ID 2019-09-30 2019-09-30 [facility] [id number] 07:26:37 10:46:56 ne Visit Dean Duong DIRECTOR SEARCH [id number] REGIONAL [id number] MATERNAL [id number] & CHILD [facility] 2019-09-28 2019-09-28 Telephone [facility] [id number] 00:00:00 00:00:00 Dean Duong DIRECTOR SEARCH [id number] REGIONAL [id number] MATERNAL [id number] & CHILD 107 [facility] 2019-09-13 2019-09-13 Telephone [facility] [id number] 00:00:00 00:00:00 Dean R DIRECTOR SEARCH [id number] REGIONAL [id number] MATERNAL [id number] & CHILD 107 [facility] Results This patient has no known results.
--- OUTSIDE RECORDS SUMMARY | 2019-10-11 12:23 | XMS REPORT | Summary of Care ---
:1995 Author Organization [facility] Address [address] [place] [id number] Care Team Providers Name Role Phone Doctor Unassigned, Name Insurance Hmo Unavailable Tess Templeton [facility] Primary Care Provider Reason for Visit Reason Comments Appointment Tele Health Visit Encounter Details Date Type Department Care Team Description [facility]) [address] [facility] [address] [place], [place] [id number] Allergies No Known Allergiesdocumented as of this encounter (statuses as of 08/05/2019) Medications Medication Sig Dispensed Refills Start Date End Date Status vit Take 1 Packet by 30 Each 6 02/06/2017 Active 06-vatz-fkzjs-dha mouth daily. (SELECT-OB + DHA) 29 mg iron-1 mg -250 mg combo packIndications: Missed menses ascorbic acid, vitamin Take 1 tablet by 90 tablet 0 07/02/2017 Active C, 500 mg tablet mouth 3 (three) times daily. ascorbic acid, vitamin Take 1 tablet by 90 tablet 2 07/23/2019 Active C, 500 mg mouth 3 (three) tabletIndications: times daily. Anemia of mother in , antepartum ferrous sulfate 325 mg Take 1 tablet by 60 tablet 3 07/23/2019 Active (65 mg iron) mouth 2 (two) tabletIndications: times daily. Anemia of mother in , antepartum documented as of this encounter (statuses as of 08/05/2019) Active Problems Problem Noted Date Anemia of mother in , antepartum 07/23/2019 Susceptible to varicella (non-immune), currently pregn ant 04/16/2019 Overview: Address pp Rubella non-immune status, antepartum 04/16/2019 Overview: Address pp Supervision of high-risk with insufficient p renatal care 04/14/2019 Multiparity 04/14/2019 History of miscarriage 04/14/2019 History of delivery 04/14/2019 Overview: Reports her oldest child jumped on her stomach and her water broke 35 weeks ROR requested Tobacco use in 04/14/2019 Overview: Reports recently quit 03-05-19 Estimated Date of Delivery Comments Yes 09/18/2019 Based on last menstr ual period of 12/12/2018 (Approximate) documented as of this encounter (statuses as of 08/05/2019) Resolved Problems Problem Noted Date Resolved Date Well woman exam 11/03/2017 04/14/2019 Contraceptive management 11/03/2017 04/14/2019 Positive GBS test 08/28/2017 11/03/2017 Anemia of mother in , antepartum 07/02/2017 04/14/2019 High-risk in third trimester 07/01/2017 0 11/03/2017 Back pain in 05/27/2017 11/03/2017 Supervision of high risk , antepartum, first 201607/01/2017 trimester History of delivery 02/06/2017 11/03/2017 Multiparity 02/06/2017 11/03/2017 Missed menses 02/06/2017 05/27/2017 documented as of this encounter (statuses as of 08/05/2019) Immunizations Name Administration Dates Next Due HPV9 11/03/2017 Influenza Virus Vaccine Quad IM 3+ YRS 02/06/2017 TDAP (ADACEL) VACCINE 07/22/2019, 09/03/2015 Tdap 07/01/2017 documented as of this encounter Social History Tobacco Use Types Packs/Day Years Used Date Former Smoker Cigarettes 20 0.5 Quit: 03/05/20 19 Smokeless Tobacco: Never Used Comments: Quit after Alcohol Use Drinks/Week oz/Week Comments No Estimated Date of Delivery Comments Yes 09/18/2019 Based on last menstr ual period of 12/12/2018 (Approximate) Sex Assigned at Date Recorded Not on file Job Start Date Occupation Industry Not on file Not on file Not on file Travel History Travel Start Travel End No recent travel history available. documented as of this encounter Last Filed Vital Signs Not on filedocumented in this encounter Plan of Treatment Health Maintenance Due Date Last Done Comments PAP SMEAR 02/07/2020 02/06/2017 HPV VACCINES (2 - Female 04/04/2020 11/03/2017 Postpon ed from 3-dose series) 12/01/2017 (Preg nant or ) CHLAMYDIA SCREENING 04/14/2020 04/14/2019, 04/14/2019, 11/03/2017, Additional history exists VARICELLA VACCINES (1 of 2 04/14/2020 Postp oned from - 2-dose childhood series) 02/14 (Insurance / Financial) INFLUENZA VACCINE (#1) 2020 02/06/2017 Postponed from 01/03/2019 (Refu sed) DTaP,Tdap,and Td Vaccines 07/21/2029 07/22/2019, 07/01/2017 , (4 - Td) 09/03/2015 PNEUMOCOCCAL 0-64 YEARS Discontinued COMBINED SERIES documented as of this encounter Results Not on filedocumented in this encounter Insurance Payer Benefit Plan / Subscriber ID Effective Phone Address [facility] xxxxxxxxx 2019-Prese [address]OX Medic aid HEALTH CHOICE [place] nt [id number] 1 MANAGED MEDICAID [place], [place] MEDICAID [phone] documented as of this encounter Advance Directives Name Relationship Healthcare Agent Relationship Co mmunication Zenaida Myers Mother Primary healthcare agent
--- OUTSIDE RECORDS SUMMARY | 2019-10-11 12:24 | XMS REPORT | Summary of Care ---
:1995 Author Organization [facility] Address [address] [place] [id number] Care Team Providers Name Role Phone Doctor Unassigned, Name Insurance Hmo Unavailable Tess Templeton [facility] Primary Care Provider Reason for Visit Reason Comments Care Encounter Details Date Type Department Care Team Description 08/17/2019 Routine [facility]- Shannan Templeton vision of high- risk with insufficient care in third trimester (Primary Dx); Visit [facility] Pulido [facility] Multiparity; [address] History of miscarriage; [place], [place] ST Rubella non-immune status, antepartum; [address] [place] History of delivery; [phone] [place], [place] Susceptible to varicella (non-immune), currently ; [id number] Maternal tobacco use in third trimester; [phone] Leukorrhea, vaginal, noninfectious Allergies No Known Allergiesdocumented as of this encounter (statuses as of 08/17/2019) Medications Medication Sig Dispensed Refills Start Date End Date Status ascorbic acid, vitamin Take 1 tablet by 90 tablet 2 07/23/2019 Active C, 500 mg mouth 3 (three) tabletIndications: times daily. Anemia of mother in , antepartum ferrous sulfate 325 mg Take 1 tablet by 60 tablet 3 07/23/2019 Active (65 mg iron) mouth 2 (two) tabletIndications: times daily. Anemia of mother in , antepartum documented as of this encounter (statuses as of 08/17/2019) Active Problems Problem Noted Date Leukorrhea, vaginal, noninfectious 08/17/2019 Anemia of mother in , antepartum 07/23/2019 [...] as of this encounter (statuses as of 08/17/2019) Resolved Problems Problem Noted Date Resolved Date [...] as of this encounter (statuses as of 08/17/2019) Immunizations Name Administration Dates Next Due HPV9 [...] of this encounter Last Filed Vital Signs Vital Sign Reading Time Taken Comments Blood Pressure 113/64 08/17/2019 3:35 PM CDT Pulse 83 08/17/2019 3:35 PM CDT Temperature 36.1 C (97 F) 08/17/2019 3:35 PM CDT Respiratory Rate 16 08/17/2019 3:35 PM CDT Oxygen Saturation - - Inhaled Oxygen Concentration - - Weight 65.1 kg (143 lb 7 oz) 08/17/2019 3:35 PM CDT Height 172.7 cm (5' 8") 08/17/2019 3:35 PM CDT Body Mass Index 21.81 08/17/2019 3:35 PM CDT documented in this encounter Progress Notes Hannah Templeton, LUISP - 08/17/2019 2:45 PM CDT Chief complaint: Chief Complaint Patient presents with Care HPI CC: Follow Up Visit Kimmy Dee Archer is a 24 year old, , /White female. Patient's last menstrual period was 12/12/2018 (approximate). She is 35w3d with an intrauterine . Her estimated date of delivery is 09/18/2019, by Last Menstrual Period. She complains today of: Leaking fluid per vagina. She reports leaking of clear, malodorous fluid per vagina estimated to beabout medium amount and uses 0 pads per day. Leaking of fluid per vagina has been occurring for 1 day(s), occurred only once after taking a bath on last night. Associated symptom(s) include none. Symptoms are worse with none.. She reports +FM and denies contractions, LOF and bleeding today. Histories OB History Para Term AB Living 6 4 3 1 1 3 SAB TAB Ectopic Multiple Live Births 1 1 # Outcome Date GA Lbr Sumeet/2nd Weight Sex Delivery Anes PTL Lv 6 Current 5 Term 09/13/17 38w5d M VAGINAL DEANN 4 10/08/16 36w0d M VAGINAL Complications: PROM (premature rupture of membranes) 3 Term 08/14/15 38w0d F VAGINAL 2 Term 04/15/12 40w0d M VAGINAL 1 SAB 06/05/09 7w0d Past Medical History: Diagnosis Date Anemia of mother in , antepartum 07/02/2017 Resovled per pt report Family History Problem Relation Age of Onset No Significant Medical Problems Mother No Significant Medical Problems Father No Significant Medical Problems Sister No Significant Medical Problems Brother No Significant Medical Problems Maternal Aunt No Significant Medical Problems Maternal Uncle No Significant Medical Problems Paternal Aunt No Significant Medical Problems Paternal Uncle Cancer Maternal Grandmother Cancer Maternal Grandfather Cancer Paternal Grandmother lung Cancer Paternal Grandfather Family Status Relation Name Status Mo (Not Specified) Fa (Not Specified) Sis (Not Specified) Bro (Not Specified) MAunt (Not Specified) MUnc (Not Specified) PAunt (Not Specified) PUnc (Not Specified) MGMo (Not Specified) MGFa (Not Specified) PGMo (Not Specified) PGFa (Not Specified) No past surgical history on file. Social History Socioeconomic History Marital status: Single Spouse name: Not on file Number of children: Not on file Years of education: Not on file Highest education level: Not on file Occupational History Not on file Social Needs Financial resource strain: Not on file Food insecurity: Worry: Not on file Inability: Not on file Transportation needs: Medical: Not on file Non-medical: Not on file Tobacco Use Smoking status: Former Smoker Packs/day: 20.00 Years: 0.50 Pack years: 10.00 Types: Cigarettes Last attempt to quit: 03/05/2019 Years since quittin.4 Smokeless tobacco: Never Used Tobacco comment: Quit after Substance and Sexual Activity Alcohol use: No Drug use: No Sexual activity: Yes Partners: Male control/protection: None Comment: last intercourse: 04/13/2019 Lifestyle Physical activity: Days per week: Not on file Minutes per session: Not on file Stress: Not on file Relationships Social connections: Talks on phone: Not on file Gets together: Not on file Attends mormonism service: Not on file Active member of club or organization: Not on file Attends meetings of clubs or organizations: Not on file Relationship status: Not on file Intimate partner violence: Fear of current or ex partner: Not on file Emotionally abused: Not on file Physically abused: Not on file Forced sexual activity: Not on file Other Topics Concern Not on file Social History Narrative Pt denies current or past physical, sexual or emotional abuse. Patient lives alone with children. Patient feels safe at home. Patient denies any cats. Social History Substance and Sexual Activity Sexual Activity Yes Partners: Male control/protection: None Comment: last intercourse: 04/13/2019 Labs No new labs, Labs are pending. and Routine Visit on 07/22/2019 Component Date Value HIV 1/2 Ag-Ab with Reflex 07/22/2019 Negative HIV Semi-quantitative 07/22/2019 0.06 Syphilis IgG/IgM 07/22/2019 Non-reactive GLUC 1 HR 07/22/2019 106* WBC 07/22/2019 10.21 RBC 07/22/2019 3.33* HGB 07/22/2019 9.9* HCT 07/22/2019 31.0* MCV 07/22/2019 93.1 MCH 07/22/2019 29.7 MCHC 07/22/2019 31.9 RDW-SD 07/22/2019 44.2 RDW-CV 07/22/2019 13.0 PLT 07/22/2019 134* MPV 07/22/2019 10.6 NRBC/100 WBC 07/22/2019 0.0 NRBC x10^3 07/22/2019 <0.01 GRAN MAT (NEUT) % 07/22/2019 73.5 IMM GRAN % 07/22/2019 1.40 LYMPH % 07/22/2019 16.6 MONO % 07/22/2019 5.6 EOS % 07/22/2019 2.4 BASO % 07/22/2019 0.5 GRAN MAT x10^3(ANC) 07/22/2019 7.51* IMM GRAN x10^3 07/22/2019 0.14* LYMPH x10^3 07/22/2019 1.69 MONO x10^3 07/22/2019 0.57 EOS x10^3 07/22/2019 0.25 BASO x10^3 07/22/2019 0.05 Radiology No new radiology. Allergies Kimmy has No Known Allergies. Medications Kimmy has a current medication list which includes the following prescription(s): ascorbic acid (vitamin c) and ferrous sulfate. Review of Systems Constitutional: Negative. HENT: Negative. Eyes: Negative. Respiratory: Negative. Breasts: Negative. Cardiovascular: Negative. Gastrointestinal: Negative. Genitourinary: Positive for vaginal discharge. Musculoskeletal: Negative. Skin: Negative. Neurological: Negative. Psychiatric/Behavioral: Negative. Endocrine: Endocrine negative BP 113/64 (BP Location: Right arm, Patient Position: Sitting, BP CUFF SIZE: Adult Medium) | Pulse 83 | Temp 36.1 C (97 F) (Oral) | Resp 16 | Ht 5' 8" (1.727 m) | Wt 143 lb 7 oz (65.1 kg) | LMP 12/12/2018 (Approximate) | BMI 21.81 kg/m Pregravid BMI: 20.5 Physical Exam Vitals reviewed. Constitutional: She is oriented to person, place, and time. She appears well- developed and well-nourished. Her body habitus is normal. Cardiovascular: Regular rate and rhythm. Pulmonary/Chest: Normal inspiratory effort. Neuro/Psychiatric: She has a normal mood and affect. She is oriented to person, place, and time. External genitalia: Normal external genitalia appropriate for age. Normal hair distribution. No labial lesion. Urethral meatus: Normal urethral meatus size, location and no lesion. No prolapse present. Normal urethral meatus Urethra: Normal urethra. No urethral tenderness, no mass and no urethral scarring palpated. Bladder: Bladder has no fullness, no mass palpated and no tenderness. Normal bladder Vagina:No lesion inspected. Normal estrogen effect. Normal support. Vaginal discharge found. -nitrazine paper test , +vaginal discharge Cervix: Normal cervix. No lesion. No tenderness and no discharge present. Uterus: Uterus is normal size, normal contour, normal position and non-tender. Normal uterus Adnexa: Right adnexa without tenderness, ovary enlargement or mass. Left adnexa without tenderness, ovary enlargement or mass. Normal left adnexa and normal right adnexa PHYSICAL: General Exam: Neurological: Normal Abdomen: Normal gravid Extremities: Normal Pelvic Exam: Uterus: 35 Weeks Assessment/Plan Return to clinic in 1 weeks. Denies zika virus risk, signs and symptoms such as fever,rash,joint pain, conjunctivitis (red eyes),muscle pain, headaches; outside [place] travel to areas affected by zika, and FOB exposure to zika. Educated on use of mosquito repellent. Supervision of high-risk with insufficient care in third trimester (primary encounter diagnosis) Multiparity History of miscarriage Comment: routine Plan: CBC WITH DIFF, GC & CHLAMYDIA AMPLIFIED ASSAY, GROUP B STREPTOCOCCUS BY PCR, CBC WITH DIFFERENTIAL Rubella non-immune status, antepartum Comment: no mgmt today Plan: address pp History of delivery Comment: no mgmt today Plan: as needed mgmt Susceptible to varicella (non-immune), currently Comment: no mgmt today Plan: address pp Maternal tobacco use in third trimester Comment: Plan: smoking cessation encouraged Leukorrhea, vaginal, noninfectious Comment: reports Plan: Nitrazine paper test negative on today This visit did not involve counseling and coordination that comprised more than 50% of the visit time. MASHA Hernandez 08/17/2019 4:16 PM documented in this encounter Plan of Treatment Date Type Specialty Care Team Description 08/25/2019 Routine Visit [facility] Ad Cleveland, POLYMER TESTER [address] [address] [phone] Name Type Priority Associated Diagnoses Date/Ti me CBC WITH DIFF LAB Routine Supervision of high-risk 3:45 PM with CDT insufficient care in third trimester GC & CHLAMYDIA AMPLIFIED LAB Routine Supervision of h igh-risk 08/17/2019 3:45 PM ASSAY with CDT insufficient care in third trimester GROUP B STREPTOCOCCUS BY LAB Routine Supervision of h igh-risk 08/17/2019 3:45 PM PCR with CDT insufficient care in third trimester CBC WITH DIFFERENTIAL LAB Routine Supervision of high -risk 08/17/2019 3:45 PM with CDT insufficient care in third trimester Health Maintenance Due Date Last Done Comments [...] COMBINED SERIES documented as of this encounter Procedures Procedure Name Priority Date/Time Associated Diagnosis Comme nts POCT URINALYSIS Routine 08/17/2019 3:45 PM Resul ts for this CDT procedure are i n the results section. documented in this encounter Results POCT URINALYSIS W SPECIFIC GRAVITY (08/17/2019 3:45 PM CDT) Pathologist Sig nature POCT U SP GRAV . 1.005 - 1.025 mg/dl POCT PH U . 5 - 8 mg/dl POCT U LEUK EST . Negative - Negative POCT U NIT . Negative - Negative POCT U PROT Trace Negative - Negative POCT U GLU Neg Negative - Negative POCT U KETONE . Negative - Negative POCT U UROBILI . 0.2 - 1 mg/dl POCT U BILI . Negative - Negative POCT U BLD . Negative - Negative POCT U COLOR POCT U APPEAR Specimen Urine - URINE, CLEAN CATCH documented in this encounter Visit Diagnoses Diagnosis Supervision of high-risk with insufficient care in third trimester - Primary Multiparity History of miscarriage Personal history of other genital system and obstetric disorders Rubella non-immune status, antepartum Other specified complication, antepartum History of delivery Susceptible to varicella (non-immune), c urrently Supervision of other high-risk Maternal tobacco use in third trimester Leukorrhea, vaginal, noninfectious Leukorrhea, not specified as infective documented in this encounter Insurance Payer Benefit Plan / Subscriber ID Effective Phone Address [employer] [facility] xxxxxxxxx 2019-Prese P[address]O. BOX Medic aid HEALTH CHOICE - HEALTH CHOICE nt [id number] 1 MANAGED MEDICAID [place], [place] MEDICAID [phone] documented as of this encounter Advance Directives Name Relationship Healthcare Agent Relationship Co mmunication Zenaida Myers Mother Primary healthcare agent
--- OUTSIDE RECORDS SUMMARY | 2019-10-11 12:24 | XMS REPORT | Summary of Care ---
:1995 Author Organization [facility] Address [address] [place] [address] Care Team Providers Name Role Phone Doctor Unassigned, Name Insurance Hmo Unavailable Tess Templeton [facility] Primary Care Provider Reason for Visit Reason Comments Assessment pt doris rodriguez Encounter Details Date Type Department Care Team Description 08/17/2019 Telephone [facility]- Hannah Templeton Ass essment (pt doris Pulido, [facility] jennifer) [address] [facility] [address] [facility] [address] [place] [address] [phone] Allergies No Known Allergiesdocumented as of this [...] of 08/17/2019) Active Problems Problem Noted Date Anemia of [...] filedocumented in this encounter Plan of Treatment Date Type Specialty Care Team Description 08/17/2019 Routine Visit [facility] Mindy Templeton, CNP [address] [place], [place] [address] [phone] 08/25/2019 Routine Visit [facility] Ad Cleveland, FREIGHT CLAIM INVESTIGATOR [address] [place] [address] [phone] Health Maintenance Due Date Last Done Comments [...] / Subscriber ID Effective Phone Address [facility] xxxxxxxxx 2019-Prese P.O. BOX Medic aid HEALTH CHOICE - HEALTH CHOICE nt [id number] 1 MANAGED MEDICAID [place], [place] [phone] documented as of this encounter Advance Directives Name Relationship Healthcare Agent Relationship Co mmunication Zenaida Myers Mother Primary healthcare agent
--- OUTSIDE RECORDS SUMMARY | 2019-10-11 12:24 | XMS REPORT | Summary of Care ---
:1995 Author [address] [facility] Address [address] [place] [address] Care Team Providers Name Role Phone Doctor Unassigned, Name Insurance Hmo Unavailable Tess Templeton [facility] Primary Care Provider Reason for Visit Reason Comments ROUTINE VISIT Tele Health Visit Encounter Details Date Type Department Care Team Description 08/12/2019 Telemedicine Visit [facility] Dean Ryder Supervision of high-risk with insufficient care in third trimester (Primary Dx); Elizabeth RNIDA History of miscarriage; [address] [facility] History of delivery; [place], [place]; [address] [place], [place] Anemia of mother in pregnanc y, antepartum [phone] [address] Allergies No Known Allergiesdocumented as of this encounter (statuses as of 08/12/2019) Medications Medication Sig Dispensed Refills Start Date End Date Status ascorbic acid, Take 1 tablet 90 tablet 2 07/23/2019 Active vitamin C, 500 mg by mouth 3 tabletIndications: (three) times Anemia of mother daily. in , antepartum ferrous sulfate Take 1 tablet 60 tablet 3 07/23/2019 Active 325 mg (65 mg by mouth 2 iron) (two) times tabletIndications: daily. Anemia of mother in , antepartum vit Take 1 Packet 30 Each 6 02/06/2017 08/12/2019 D iscontinued [id number]-dha by mouth (SELECT-OB + DHA) daily. 29 mg iron-1 mg -250 mg combo packIndications: Missed menses ascorbic acid, Take 1 tablet 90 tablet 0 07/02/2017 08/12/2019 Discontinued vitamin C, 500 mg by mouth 3 tablet (three) times daily. documented as of this encounter (statuses as of 08/12/2019) Active Problems Problem Noted Date Anemia of [...] as of this encounter (statuses as of 08/12/2019) Resolved Problems Problem Noted Date Resolved Date [...] as of this encounter (statuses as of 08/12/2019) Immunizations Name Administration Dates Next Due HPV9 [...] Signs Not on filedocumented in this encounter Progress Notes Dean Cleveland FNP - 08/12/2019 1:45 PM CDT Chief complaint: Chief Complaint Patient presents with ROUTINE VISIT Tele Health Visit TELEHEALTH NOTE Verbal consent obtained from Patient: Kimmy Archer and Care Provider: NIDA Pearl due to the COVID-19 pandemic for telehealth services provided below. Communication with patient was conducted via Telephone due to patient unable to obtain video call option. Location of Patient: Home Location of Provider: Clinic Date of Service: 08/12/2019 Chief Complaint: Visit via Tele Health HPI: Kimmy Archer is a 24 year old female with Past Medical History: Diagnosis Date Anemia of mother in , antepartum 07/02/2017 Resovled per pt report ROS See Note TELEHEALTH EXAM Constitutional: Alert and no distress Respiratory: Breathing comfortably Neurology: Answers questions appropriately Psychological: Affect Normal After visit summary (AVS ) documentation will be available through [facility] for this encounter. A total of 15 minutes was spent on the Telephone due to patient unable to obtain video call option. NIDA Pearl HPI CC: Follow Up Visit Kimmy Archer is a 24 year old, , /White female. Patient's last menstrual period was 12/12/2018 (approximate). She is 34w5d with an intrauterine . Her estimated date of delivery is 09/18/2019, by Last Menstrual Period. She has no complaints today. Patient report she went to ER [place] in [place] due to contractions. Patient reports they told her she was notdilated and baby was breech presentation. She reports +FM and denies contractions, LOF and bleeding today. Reviewed OB/ER, PIH, labor and movement precautions. Encouraged patient to go to [facility] for any signs and symptoms of labor (regular contractions, LOF, vaginal bleeding or decrease movement.Patient denies current or past physical, sexual or emotional abuse. Histories OB History Para Term AB Living [...] file Gets together: Not on file Attends rastafari service: Not on file Active member of [...] Comment: last intercourse: 04/13/2019 Labs No new labs Radiology No new radiology. Allergies Kimmy has No Known Allergies. Medications Kimmy has a current medication list which includes the following prescription(s): ascorbic acid (vitamin c) and ferrous sulfate. Review of Systems Eyes: Negative for visual disturbance. Cardiovascular: Negative for leg swelling. Gastrointestinal: Negative for abdominal pain, nausea and vomiting. Genitourinary: Negative for vaginal bleeding, vaginal discharge and pelvic pain. Neurological: Negative for headaches. LMP 12/12/2018 (Approximate) Pregravid BMI: 20.5 Physical Exam PHYSICAL: General Exam: Neurological: Normal Assessment/Plan Supervision of high-risk with insufficient care in third trimester (primary encounter diagnosis) History of miscarriage History of delivery Multiparity Comment: Routine Visit Plan: Denies zika virus risk, signs and symptoms such as fever,rash,joint pain, conjunctivitis (red eyes), muscle pain, headaches; outside [place] travel to areas affected by zika, and FOB exposure to zika.Educated on use of mosquito repellent. Anemia of mother in , antepartum Comment: plaintext report she is taking PNV and Iron pills daily Plan: patient adviced to continue taking medication daily Return to clinic in 2 weeks in person/ Discussed treatment options. Medications as ordered. Reviewed patient instructions and provided printed copy. This visit did not involve counseling and coordination that comprised more than 50% of the visit time. NIDA Pearl 08/12/2019 2:05 PM documented in this encounter Plan of Treatment Date Type Specialty Care Team Description 08/25/2019 Routine Visit [facility] Satellites Ad Cleveland FNP [address] [place] [address] 15 [phone] Name Type Priority Associated Diagnoses Order S chedule CBC WITH DIFF LAB Routine Supervision of high-risk Ex pected: with 08/12/2019, E xpires: insufficient 2020 care in third trimester GC & CHLAMYDIA AMPLIFIED LAB Routine Supervision of h igh-risk Expected: ASSAY with 08/12/2019, E xpires: insufficient 2020 care in third trimester GROUP B STREPTOCOCCUS BY LAB Routine Supervision of h igh-risk Expected: PCR with 08/12/2019, E xpires: insufficient 2020 care in third trimester Health Maintenance Due [...] Results Not on filedocumented in this encounter Visit Diagnoses Diagnosis Supervision of high-risk with insufficient care in third trimester - Primary History of miscarriage Personal history of other genital system and obstetric disorders History of delivery Multiparity Anemia of mother in , antepartu m Anemia, antepartum documented in this encounter Insurance Payer Benefit Plan / Subscriber ID Effective Phone Address T ype Group Dates [facility] xxxxxxxxx 2019-Theodore P.OBryn BOX Medic aid HEALTH CHOICE - [place] [employer] nt [id number] 1 [facility] MEDICAID [place], [place] MED[place]ID [phone] documented as of this encounter Advance Directives Name Relationship Healthcare Agent Relationship Co mmunication Zenaida Myers Mother Primary healthcare agent
--- OUTSIDE RECORDS SUMMARY | 2019-10-11 12:25 | XMS REPORT | Summary of Care ---
:1995 Author Organization [facility] Address [address] [place] [address] Care Team Providers Name Role Phone Doctor Unassigned, Name Insurance Hmo Unavailable Tess Templeton [facility] Primary Care Provider Reason for Visit Reason Comments Care Encounter Details Date Type Department Care Team Description 08/25/2019 Routine [facility]- Dean Cleveland upervision of high-risk with insufficient care in third trimester (Primary Dx); Visit Elizabeth RNIDA History of miscarriage; [address] [place] [address] History of delivery; [place], [place]; [address] [place], [place] Anemia of mother in pregnanc y, antepartum; [phone] [address] Maternal tobacco use in third trimester [phone] Allergies No Known Allergiesdocumented as of this encounter (statuses as of 08/25/2019) Medications Medication Sig Dispensed Refills Start Date [...] as of this encounter (statuses as of 08/25/2019) Active Problems Problem Noted Date Leukorrhea, vaginal, [...] her water broke 35 weeks ROR requested Maternal tobacco use in third trimester 04/14/2019 Overview: Reports recently quit 03-05-19 Estimated Date of Delivery Comments Yes 09/18/2019 Based on last menstr ual period of 12/12/2018 (Approximate) documented as of this encounter (statuses as of 08/25/2019) Resolved Problems Problem Noted Date Resolved Date [...] as of this encounter (statuses as of 08/25/2019) Immunizations Name Administration Dates Next Due HPV9 [...] Sign Reading Time Taken Comments Blood Pressure 124/74 08/25/2019 9:24 AM CDT Pulse 83 08/25/2019 9:24 AM CDT Temperature 36.6 C (97.9 F) 08/25/2019 9:24 AM CDT Respiratory Rate 16 08/25/2019 9:24 AM CDT Oxygen Saturation - - Inhaled Oxygen Concentration - - Weight 66.5 kg (146 lb 8 oz) 08/25/2019 9:24 AM CDT Height 172.7 cm (5' 8") 08/25/2019 9:24 AM CDT Body Mass Index 22.28 08/25/2019 9:24 AM CDT documented in this encounter Progress Notes Dean Cleveland, BROKERAGE CLERK - 08/25/2019 9:00 AM CDT Chief complaint: Chief Complaint Patient presents with Care HPI CC: Follow Up Visit Kimmy Dee Archer is a 24 year old, , /White female. Patient's last menstrual period was 12/12/2018 (approximate). She is 36w4d with an intrauterine . Her estimated date of delivery is 09/18/2019, by Last Menstrual Period. She has no complaints today. She reports +FM and denies contractions, LOF and bleeding today. Patient denies current or past physical, sexual or [...] file Gets together: Not on file Attends adventism service: Not on file Active member of [...] control/protection: None Comment: last intercourse: 04/13/2019 Labs Labs are pending. Radiology No new radiology. Allergies Kimmy has [...] and pelvic pain. Neurological: Negative for headaches. BP 124/74 (BP Location: Right arm, Patient Position: Sitting, BP CUFF SIZE: Adult Medium) | Pulse 83 | Temp 36.6 C (97.9 F) (Oral) | Resp 16 | Ht 5' 8" (1.727 m) | Wt 146 lb 8 oz (66.5 kg) | LMP 12/12/2018 (Approximate) | BMI 22.28 kg/m Pregravid BMI: 20.5 Physical Exam PHYSICAL: General Exam: Neurological: Normal Abdomen: Normal Extremities: Normal Pelvic Exam: Cervix: 1/50/-3 Membrane status: Intact Uterus: 37cm Weeks Assessment/Plan Supervision of high-risk with insufficient care [...] Anemia of mother in , antepartum Comment: patient states she is taking vitamins and iron pills daily Plan:patient advised to continue taking medication daily. Maternal tobacco use in third trimester Comment: patient report she smokes 3-4 cigs a day Plan: smoking cessation discussed. Return to clinic in 1 weeks in person. Discussed treatment options. Medications as ordered. Reviewed patient instructions and provided printed copy. This visit did not involve counseling and coordination that comprised more than 50% of the visit time. NIDA Pearl 08/25/2019 10:18 AM documented in this encounter Plan of Treatment Date Type Specialty Care Team Description 09/01/2019 Routine Visit OB [facility]ellites Ad Cleveland FNP [address] [place] [address] 15 [phone] Name Type Priority Associated Diagnoses Order S chedule CBC WITH DIFF LAB Routine Supervision of high-risk Or dered: 08/25/2019 with insufficient care in third trimester GROUP B STREPTOCOCCUS BY LAB Routine Supervision of h igh-risk Ordered: 08/25/2019 PCR with insufficient care in third trimester CBC WITH DIFFERENTIAL LAB Routine Supervision of high -risk Ordered: 08/25/2019 with insufficient care in third trimester Health Maintenance Due Date Last Done Comments PAP SMEAR 02/07/2020 02/06/2017 HPV VACCINES (2 - Female 04/04/2020 11/03/2017 Postpon ed from 3-dose series) 12/01/2017 (Preg nant or ) VARICELLA VACCINES (1 of 2 04/14/2020 Postp oned from - 2-dose childhood series) 02/14 (Insurance / Financial) INFLUENZA VACCINE (#1) 2020 02/06/2017 Postponed from 01/03/2019 (Refu sed) CHLAMYDIA SCREENING 08/16/2020 08/17/2019, 04/14/2019, 04/14/2019, Additional history exists DTaP,Tdap,and Td Vaccines 07/21/2029 07/22/2019, 07/01/2017 , (4 - Td) 09/03/2015 PNEUMOCOCCAL 0-64 YEARS Discontinued COMBINED SERIES documented as of this encounter Procedures Procedure Name Priority Date/Time Associated Diagnosis Comme nts POCT URINALYSIS Routine 08/25/2019 9:25 AM Resul ts for this CDT procedure are i n the results section. documented in this encounter Results POCT URINALYSIS W SPECIFIC GRAVITY (08/25/2019 9:25 AM CDT) Pathologist Sig nature POCT U SP GRAV . 1.005 - 1.025 mg/dl POCT PH U . 5 - 8 mg/dl POCT U LEUK EST . Negative - Negative POCT U NIT . Negative - Negative POCT U PROT trace Negative - Negative POCT U GLU negative Negative - Negative POCT U KETONE . [...] mother in , antepartu m Anemia, antepartum Maternal tobacco use in third trimester documented in this encounter Insurance Payer Benefit Plan / Subscriber ID Effective Phone Address T ype Group [facility] xxxxxxxxx 2019-Prese P[address]O. BOX Medic aid HEALTH CHOICE - HEALTH [employer] nt [id number] 1 MANAGED MEDICAID [place], [place] MEDICAID [phone] documented as of this encounter Advance Directives Name Relationship Healthcare Agent Relationship Co mmunication Zenaida Myers Mother Primary healthcare agent
--- OUTSIDE RECORDS SUMMARY | 2019-10-11 12:26 | XMS REPORT | Summary of Care ---
:1995 Author Organization [facility] Address [address] [place] [address] Care Team Providers Name Role Phone Doctor Unassigned, Name Insurance Hmo Unavailable Tess Templeton [facility] Primary Care Provider Reason for Visit Reason Comments Care Encounter Details Date Type Department Care Team Description 08/25/2019 Routine [facility]- Dean Cleveland upervision of high-risk with insufficient care in third trimester (Primary Dx); Visit Elizabeth RNIDA History of miscarriage; [address] [place] [address] History of delivery; [place], [place]; [address] [place], [place] Anemia of mother in pregnanc y, antepartum; [phone] [address] Maternal tobacco use in third trimester [phone] Allergies No Known Allergiesdocumented as of this [...] in this encounter Progress Notes Dean Cleveland, AROMATHERAPIST - 08/25/2019 9:00 AM CDT Chief complaint: [...] file Gets together: Not on file Attends moravian service: Not on file Active member of [...] OB Satellites Ad Cleveland FNP [address] [place] [address] 15 [phone] Name Type Priority Associated Diagnoses Date/Ti me CBC WITH DIFF LAB Routine Supervision of high-risk 10:27 AM with CDT insufficient care in third trimester GROUP B STREPTOCOCCUS BY LAB Routine Supervision of h igh-risk 08/25/2019 10:27 AM PCR with CDT insufficient care in third trimester CBC WITH DIFFERENTIAL LAB Routine Supervision of high -risk 08/25/2019 10:27 AM with CDT insufficient care in third trimester [...] ID Effective Phone Address T e Group [facility] xxxxxxxxx 2019-Prese P.O. BOX Medic aid HEALTH CHOICE - HEALTH [employer] nt [id number] 1 MANAGED MEDICAID [place], [place] MEDICAID [phone] documented as of this encounter Advance Directives Name Relationship Healthcare Agent Relationship Co mmunication Zenaida Myers Mother Primary healthcare agent
--- OUTSIDE RECORDS SUMMARY | 2019-10-11 12:26 | XMS REPORT | Summary of Care ---
:1995 Author Organization [facility] Address [address] [place] [address] Care Team Providers Name Role Phone Doctor Unassigned, Name Insurance Hmo Unavailable Tess Templeton [facility] Primary Care Provider Reason for Visit Reason Comments Anemia Encounter Details Date Type Department Care Team Description 08/26/2019 [facility] Dean Johns, CANDLEMAKING LABORER Anemia [address] [place] [address] [place] [address] [place] [address] [phone] Allergies No Known Allergiesdocumented as of this encounter (statuses as of 08/26/2019) Medications Medication Sig Dispensed Refills Start Date [...] daily. Anemia of mother in , antepartum ascorbic acid, vitamin Take 1 tablet by 90 tablet 3 08/26/2019 Active C, 500 mg mouth 3 (three) tabletIndications: times daily. Anemia of mother in , antepartum ferrous sulfate 325 mg Take 1 tablet by 60 tablet 3 08/26/2019 Active (65 mg iron) mouth 2 (two) tabletIndications: times daily. Anemia of mother in , antepartum documented as of this encounter (statuses as of 08/26/2019) Active Problems Problem Noted Date Leukorrhea, vaginal, [...] as of this encounter (statuses as of 08/26/2019) Resolved Problems Problem Noted Date Resolved Date [...] as of this encounter (statuses as of 08/26/2019) Immunizations Name Administration Dates Next Due HPV9 [...] Description 09/01/2019 Routine Visit [facility]ell[facility] Ad Cleveland, CANDLEMAKING LABORER [address] [place] [id number] 15 [phone] Health Maintenance Due Date Last Done Comments [...] filedocumented in this encounter Visit Diagnoses Diagnosis Anemia of mother in , antepartu m - Primary Anemia, antepartum documented in this encounter Insurance Payer Benefit Plan / Subscriber ID Effective Phone Address T [facility] xxxxxxxxx 2019-Prese P.O. BOX Medic aid HEALTH CHOICE - HEALTH CHOICE nt [id number] 1 MANAGED MEDICAID [place], [place] MEDICAID [phone] documented as of this encounter Advance Directives Name Relationship Healthcare Agent Relationship Co mmunication Zenaida Myers Mother Primary healthcare agent
--- OUTSIDE RECORDS SUMMARY | 2019-10-11 12:26 | XMS REPORT | Summary of Care ---
:1995 Author Organization [facility] Address [address] [place] [address] Care Team Providers Name Role Phone Doctor Unassigned, Name Insurance Hmo Unavailable Tess Templeton [facility] Primary Care Provider Reason for Visit Reason Comments Anemia Encounter Details Date Type Department Care Team Description 08/26/2019 [facility], ENVIRONMENTAL STUDIES PROFESSOR Anemia [address] [place] [address] [place] [address] [place] [address] [phone] Allergies No Known Allergiesdocumented as of this [...] 09/01/2019 Routine Visit [facility]ell[facility] Ad Cleveland, ENVIRONMENTAL STUDIES PROFESSOR [address] [place] 7[address] 15 [phone] Health Maintenance Due Date Last Done Comments [...] / Subscriber ID Effective Phone Address T [facility] xxxxxxxxx 2019-Prese P.O. BOX Medic aid HEALTH CHOICE - HEALTH CHOICE nt [id number] 1 MANAGED MEDICAID [place], [place] [phone] documented as of this encounter Advance Directives Name Relationship Healthcare Agent Relationship Co mmunication Zenaida Myers Mother Primary healthcare agent
--- OUTSIDE RECORDS SUMMARY | 2019-10-11 12:27 | XMS REPORT | Summary of Care ---
:1995 Author Organization [facility] Address [address] [place] [address] Care Team Providers Name Role Phone Doctor Unassigned, Name Insurance Hmo Unavailable Tess Templeton [facility] Primary Care Provider Reason for Visit Reason Comments Care Encounter Details Date Type Department Care Team Description 09/01/2019 Routine [facility]- Dean Cleveland upervision of high-risk with insufficient care in third trimester (Primary Dx); Visit NIDA Whitley History of miscarriage; [address] [place] [address] History of delivery; [place], [place] Multiparity; [address] [place], [place] Anemia of mother in pregnanc y, antepartum [phone] [address] Allergies No Known Allergiesdocumented as of this encounter (statuses as of 09/01/2019) Medications Medication Sig Dispensed Refills Start Date [...] as of this encounter (statuses as of 09/01/2019) Active Problems Problem Noted Date History of group B Streptococcus (GBS) infection 08/26 Overview: Will address in Labor and Delivery Leukorrhea, vaginal, noninfectious 08/17/2019 Anemia of mother [...] as of this encounter (statuses as of 09/01/2019) Resolved Problems Problem Noted Date Resolved Date [...] as of this encounter (statuses as of 09/01/2019) Immunizations Name Administration Dates Next Due HPV9 [...] Travel End No recent travel history available. COVID-19 Exposure Response Date Recorded In the last month, have you been in contact with No / Unsure 09/01/2019 11:12 AM CDT someone who was confirmed or suspected to have Coronavirus / COVID-19? documented as of this encounter Last Filed Vital Signs Not on filedocumented in this encounter Progress Notes Dean Cleveland, NIDA - 09/01/2019 10:45 AM CDT Chief complaint: Chief Complaint Patient presents with Care HPI CC: Follow Up Visit Kimmy Archer is a 24 year old, , /White female. Patient's last menstrual period was 12/12/2018 (approximate). She is 37w4d with an intrauterine . Her estimated date of delivery is 09/18/2019, by Last Menstrual Period. She has no complaints today. Reviewed OB/ER, PIH, labor and movement precautions. Encouraged patient to go to [facility] for any signs and symptoms of labor (regular contractions, LOF, vaginal bleeding or decrease movement. Patient denies current or past physical, sexual [...] file Gets together: Not on file Attends baptism service: Not on file Active member of [...] includes the following prescription(s): ascorbic acid (vitamin c), ferrous sulfate, ascorbic acid (vitamin c), and ferrous sulfate. Review of Systems Eyes: Negative for visual disturbance. Cardiovascular: Negative for leg swelling. Gastrointestinal: Negative for abdominal pain, nausea and vomiting. Genitourinary: Negative for vaginal bleeding, vaginal discharge and pelvic pain. Neurological: Negative for headaches. LMP 12/12/2018 (Approximate) Pregravid BMI: 20.5 Physical Exam PHYSICAL: General Exam: Neurological: Normal Abdomen: Normal Extremities: Normal Pelvic Exam: Uterus: 37cm Weeks Assessment/Plan Supervision of high-risk with insufficient care in third trimester (primary encounter diagnosis) History of miscarriage History of delivery Multiparity Comment: Routine Visit Plan: Denies zika virus risk, signs and symptoms such as fever,rash,joint pain, conjunctivitis (red eyes), muscle pain, headaches; outside [place] travel to areas affected by zika, and FOB exposure to zika.Educated on use of mosquito repellent. Reviewed OB/ER, PIH, labor and movement precautions. Encouraged patient to go to [facility] for any signs and symptoms of labor (regular contractions, LOF, vaginal bleeding or decrease movement. Anemia of mother in , antepartum Comment: patient taking medication daily Plan: patient encouraged to continue taking medication as directed. Return to clinic in 3 weeks. Discussed treatment options. Medications as ordered. Reviewed patient instructions and provided printed copy. This visit did not involve counseling and coordination that comprised more than 50% of the visit time. NIDA Pearl 09/01/2019 11:46 AM documented in this encounter Plan of Treatment Date Type Specialty Care Team Description 09/08/2019 Routine Visit OB Satellites Ad Cleveland FNP [address] [place], [place] [address] [phone] Health Maintenance Due Date Last Done Comments [...] Associated Diagnosis Comme nts POCT URINALYSIS Routine 09/01/2019 Results for this procedure are in the resu lts section. documented in this encounter Results POCT URINALYSIS W SPECIFIC GRAVITY (09/01/2019) Pathologist Sig nature POCT U SP GRAV [...] / Subscriber ID Effective Phone Address T [facility] xxxxxxxxx 2019-Prese P[address]O. BOX Medic aid HEALTH CHOICE - HEALTH CHOICE nt [id number] 1 MANAGED MEDICAID [place], [place] MED[place]ID [phone] documented as of this encounter Advance Directives Name Relationship Healthcare Agent Relationship Co mmunication Zenaida Myers Mother Primary healthcare agent
--- OUTSIDE RECORDS SUMMARY | 2019-10-11 12:28 | XMS REPORT | Summary of Care ---
:1995 Author Organization [facility] Address [address] [place] [address] Care Team Providers Name Role Phone Doctor Unassigned, Name Insurance Hmo Unavailable Tess Templeton [facility] Primary Care Provider Reason for Visit Reason Comments Notification severe back pain Assessment Encounter Details Date Type Department Care Team Description 09/03/2019 Telephone [facility]- Hannah Templeton Not ification (severe [place] C, [facility] back pain); Assessment [address] [facility] [address] [facility] [address] [place] [address] [phone] Allergies No Known Allergiesdocumented as of this encounter (statuses as of 09/03/2019) Medications Medication Sig Dispensed Refills Start Date [...] as of this encounter (statuses as of 09/03/2019) Active Problems Problem Noted Date History of [...] as of this encounter (statuses as of 09/03/2019) Resolved Problems Problem Noted Date Resolved Date [...] as of this encounter (statuses as of 09/03/2019) Immunizations Name Administration Dates Next Due HPV9 [...] Description 09/08/2019 Routine Visit [facility] [place], [employer] [address] [place], [place] [address] [phone] Health Maintenance Due Date Last Done Comments PAP SMEAR 02/07/2020 02/06/2017 HPV VACCINES (2 - Female 04/04/2020 11/03/2017 Postpon ed from 3-dose series) 12/01/2017 (Preg nant or ) VARICELLA VACCINES (1 of 2 04/14/2020 Postp oned from - 2-dose childhood series) 02/14 (Insurance / Financial) INFLUENZA VACCINE (Season 05/18/2020 02/06/2017 Postpo samantha from Ended) 01/04/2020 (Refu sed) CHLAMYDIA SCREENING 08/16/2020 08/17/2019, 04/14/2019, 04/14/2019, Additional history exists DTaP,Tdap,and Td Vaccines 07/21/2029 07/22/2019, 07/01/2017 , (4 - Td) 09/03/2015 PNEUMOCOCCAL 0-64 YEARS Discontinued COMBINED SERIES documented as of this encounter Results Not on filedocumented in this encounter Insurance Payer Benefit Plan / Subscriber ID Effective Phone Address T e Group [facility] xxxxxxxxx 2019-Prese [address] Medic aid HEALTH CHOICE - HEALTH CHOICE nt [id number] 1 MANAGED MEDICAID [place], [place] [phone] documented as of this encounter Advance Directives Name Relationship Healthcare Agent Relationship Co mmunication Zenaida Myers Mother Primary healthcare agent
--- OUTSIDE RECORDS SUMMARY | 2019-10-11 12:28 | XMS REPORT | Summary of Care ---
:1995 Author Organization [facility] Address [address] [place] [address] Care Team Providers Name Role Phone Doctor Unassigned, Name Insurance Hmo Unavailable Tess Templeton [facility] Primary Care Provider Reason for Visit Reason Comments Notification severe back pain Assessment Encounter Details Date Type Department Care Team Description 09/03/2019 Telephone [facility]- Hannah Templeton Not ification (severe [place], [facility] back pain); Assessment [address] [facility] [address] [facility] [address] [place] [address] [phone] Allergies No Known Allergiesdocumented as of this [...] 09/08/2019 Routine Visit [facility] [place], [employer] [address] [place], [place] [address] [phone] Health Maintenance Due Date Last Done Comments [...] ID Effective Phone Address T [employer] [facility] xxxxxxxxx 2019-Prese [address]. BOX Medic aid HEALTH CHOICE - HEALTH CHOICE nt [id number] 1 MANAGED MEDICAID [place] [phone] documented as of this encounter Advance Directives Name Relationship Healthcare Agent Relationship Co mmunication Zenaida Myers Mother Primary healthcare agent
--- OUTSIDE RECORDS SUMMARY | 2019-10-11 12:28 | XMS REPORT | Summary of Care ---
:1995 Author Organization [facility] Address [address] [place] [id number] Care Team Providers Name Role Phone Doctor Unassigned, Name Insurance Hmo Unavailable Tess Templeton [facility] Primary Care Provider Reason for Visit Reason Comments Care Encounter Details Date Type Department Care Team Description 09/01/2019 Routine [facility]- Dean [place] upervision of high-risk with insufficient care in third trimester (Primary Dx); Visit NIDA Whitley History of miscarriage; [address] [place] [address] History of delivery; [place], [place]; [address] [place], [place] Anemia of mother in pregnanc y, antepartum [phone] Allergies No Known Allergiesdocumented as of [...] Sign Reading Time Taken Comments Blood Pressure 126/57 09/01/2019 11:20 AM CDT Pulse 78 09/01/2019 11:20 AM CDT Temperature 36.6 C (97.9 F) 09/01/2019 11:20 AM CDT Respiratory Rate 16 09/01/2019 11:20 AM CDT Oxygen Saturation - - Inhaled Oxygen Concentration - - Weight 67.8 kg (149 lb 7 oz) 09/01/2019 11:20 AM CDT Height 172.7 cm (5' 8") 09/01/2019 11:20 AM CDT Body Mass Index 22.72 09/01/2019 11:20 AM CDT documented in this encounter Progress [...] movement precautions. Encouraged patient to go to [facility] for any signs and symptoms of labor [...] file Gets together: Not on file Attends restorationism service: Not on file Active member of [...] movement precautions. Encouraged patient to go to [facility] for any signs and symptoms of labor [...] [facility] [place] FNP [address] [place], [place] [address] [phone] Health Maintenance Due Date Last Done Comments [...] ID Effective Phone Address T [employer] [facility] xxxxxxxxx 2019-Prese [address] Medic aid HEALTH CHOICE - HEALTH CHOICE nt [id number] 1 MANAGED MEDICAID [place] [phone] documented as of this encounter Advance Directives Name Relationship Healthcare Agent Relationship Co mmunication Zenaida Myers Mother Primary healthcare agent
--- OUTSIDE RECORDS SUMMARY | 2019-10-11 12:30 | XMS REPORT | Summary of Care ---
:1995 Author Organization [facility] Address [address] [place] [id number] Care Team Providers Name Role Phone Doctor Unassigned, Name Insurance Hmo Unavailable Tess Templeton [facility] Primary Care Provider Reason for Referral (Routine) Status Reason Specialty Diagnoses / Referred By Referred To Procedures Contact Contact New Request Diagnoses 37 weeks gestation of Darlin Riggs CNM Procedures DISCHARGE FOLLOW-UP: [facility] [address] [place] [address] [phone] Reason for Visit Auth/Cert Status Reason Specialty Diagnoses / Procedures Referred By Ad barrios To Contact Contact Obstetrics Diagnoses AMS Neutrophilic leukocytosis [address] [address] Phone: Fax: Encounter Details Date Type Department Care Team Description 09/03/2019 - Hospital Mother Baby Unit Armin Alberto SVD ( spontaneous 09/05/2019 Encounter (J8C) vaginal delivery) [address] [place] [address]. [place] [address] [facility] [phone] Allergies No Known Allergiesdocumented as of this encounter (statuses as of 09/05/2019) Medications Medication Sig Dispensed Refills Start Date End Date Status ascorbic acid, Take 1 tablet 90 tablet 2 07/23/2019 Active vitamin C, 500 mg by mouth 3 tabletIndications: (three) times Anemia of mother in daily. , antepartum ferrous sulfate 325 Take 1 tablet 60 tablet 3 07/23/2019 Active mg (65 mg iron) by mouth 2 tabletIndications: (two) times Anemia of mother in daily. , antepartum vitamin Take 1 tablet 100 tablet 3 09/05/2019 Active w/FA by mouth tabletIndications: daily. 37 weeks gestation of docusate calcium Take 1 60 capsule 1 09/05/2019 A ctive 240 mg capsule by capsuleIndications: mouth once 37 weeks gestation daily as of needed for Constipation. ferrous sulfate 325 Take 1 tablet 60 tablet 2 09/05/2019 Active mg (65 mg iron) by mouth 2 tabletIndications: (two) times 37 weeks gestation daily. of ibuprofen 600 mg Take 1 tablet 60 tablet 1 09/05/2019 Active tabletIndications: by mouth 37 weeks gestation every 6 (six) of hours as needed (Pain). Take with food or milk. acetaminophen 325 Take 2 30 tablet 1 09/05/2019 09/04/2020 Active mg tablets by tabletIndications: mouth every 6 37 weeks gestation (six) hours of as needed for Pain (scale 1-3). docusate calcium Take 1 30 capsule 1 09/05/2019 A ctive 240 mg capsule by capsuleIndications: mouth once 37 weeks gestation daily as of needed for Constipation. ibuprofen 600 mg Take 1 tablet 30 tablet 1 09/05/2019 Active tabletIndications: by mouth 37 weeks gestation every 6 (six) of hours as needed for Pain (scale 4-6). vitamin Take 1 tablet 60 tablet 2 09/05/2019 Active w/FA by mouth tabletIndications: daily. 37 weeks gestation of varicella virus inject 0.5 mL 0.5 mL 0 09/05/2019 0 Active vaccine live 1,350 under the unit/0.5 mL skin once now injectionIndication for 1 dose. s: Susceptible to varicella (non-immune), currently , Rubella non-immune status, antepartum measles, mumps + inject 0.5 mL 0.5 mL 0 09/05/2019 09/05/19 20 Active rubella vac under the 1,000-12,500 skin once now TCID50/0.5 mL for 1 dose. injectionIndication s: Susceptible to varicella (non-immune), currently , Rubella non-immune status, antepartum ascorbic acid, Take 1 tablet 90 tablet 3 08/26/2019 09/05/2019 Discontinued vitamin C, 500 mg by mouth 3 tabletIndications: (three) times Anemia of mother in daily. , antepartum ferrous sulfate 325 Take 1 tablet 60 tablet 3 08/26/201909/04 Discontinued mg (65 mg iron) by mouth 2 tabletIndications: (two) times Anemia of mother in daily. , antepartum documented as of this encounter (statuses as of 09/05/2019) Active Problems Problem Noted Date Single liveborn 09/05/2019 (spontaneous vaginal delivery) 09/05/2019 Thrombocytopenia affecting 09/03/2019 37 weeks gestation of 09/03/2019 History of group B Streptococcus (GBS) infection [...] trimester 04/14/2019 Overview: Reports recently quit 03-05-19 Comments Yes documented as of this encounter (statuses as of 09/05/2019) Resolved Problems Problem Noted Date Resolved Date [...] as of this encounter (statuses as of 09/05/2019) Immunizations Name Administration Dates Next Due HPV9 11/03/2017 Influenza Virus Vaccine Quad IM 3+ YRS 02/06/2017 TDAP (ADACEL) VACCINE 07/22/2019, 09/03/2015 Tdap 07/01/2017 documented as of this encounter Social History Tobacco Use Types Packs/Day Years Used Date Former Smoker Cigarettes 20 0.5 Quit: 03/05/20 19 Smokeless Tobacco: Never Used Comments: Quit after Alcohol Use Drinks/Week oz/Week Comments No Comments Yes Sex Assigned at Date Recorded Not on file Job Start Date Occupation Industry Not on file Not on file Not on file Travel History Travel Start Travel End No recent travel history available. COVID-19 Exposure Response Date Recorded In the last month, have you been in contact with No / Unsure 09/03/2019 9:40 PM CDT someone who was confirmed or suspected to have Coronavirus / COVID-19? documented as of this encounter Last Filed Vital Signs Vital Sign Reading Time Taken Comments Blood Pressure 110/64 09/05/2019 8:36 AM CDT Pulse 65 09/05/2019 8:36 AM CDT Temperature 36.7 C (98.1 F) 09/05/2019 8:36 AM CDT Respiratory Rate 18 09/05/2019 8:36 AM CDT Oxygen Saturation 97% 09/05/2019 8:36 AM CDT Inhaled Oxygen Concentration - - Weight 68 kg (150 lb) 09/03/2019 10:09 PM CDT Height 172.9 cm (5' 8.07") 09/03/2019 10:09 PM CDT Body Mass Index 22.76 09/03/2019 10:09 PM CDT documented in this encounter Discharge Summaries Darlin Riggs CNM - 09/05/2019 8:54 AM CDT DISCHARGE SUMMARY - VAGINAL DELIVERY Date of Service: 09/05/2019 ADMIT DATE: 09/03/2019 DISCHARGE DATE: 09/05/2019 ATTENDING MD: Armin Alberto MD ATTENDING MD AT DISCHARGE: Alexandra Prabhakar MDM/DIRECTOR GLOBAL MARKET RESEARCH: Darlin Riggs CNM PCP: Hannah Templeton REASON FOR ADMISSION Admit For: AOL For: care for FINAL DIAGNOSIS: (the reason, after study, for admitting the patient to the hospital) S/P Vaginal Delivery SECONDARY DIAGNOSIS: (any diagnosis that, on this admission, required clinical evaluation, therapeutic treatment, diagnostic procedures, extended hospital stay, or additional nursing care/monitoring): Anemia Principal Problem: (spontaneous vaginal delivery) (09/05/2019) POA: No Assessment: TIUP delivered Plan: Rt pP care Active Problems: Susceptible to varicella (non-immune), currently (04/16/2019) POA: Yes Assessment: vaccine prior to d/c Rubella non-immune status, antepartum (04/16/2019) POA: Yes Assessment: MMR prior to d/c Anemia of mother in , antepartum (07/23/2019) POA: Yes Assessment: HGB (g/dL) Date Value 09/05/2019 10.3 (L) Plan: iron daily Single liveborn (09/05/2019) POA: No Assessment: Nb in care of pedi History of delivery (04/14/2019) POA: Yes Assessment: TIUP delivered History of group B Streptococcus (GBS) infection (08/27/2019) POA: Yes Assessment: Treated Plan: monitor for infection Thrombocytopenia affecting (09/03/2019) POA: Yes Assessment: platelets 127 Plan: repeat CBC in 6 wks 37 weeks gestation of (09/03/2019) POA: Yes Assessment: TIUP delivered Plan: RT pP care PRINCIPAL PROCEDURE: Cephalic vaginal delivery ADDITIONAL PROCEDURES: History reviewed. No pertinent surgical history. Internal monitoring SIGNIFICANT LAB/X-RAYS: HCT (%) Date Value 09/05/2019 32.4 (L) HGB (g/dL) Date Value 09/05/2019 10.3 (L) 08/25/2019 9.9 (L) Rubella: not immune Varicella: not immune Type and Screen: AB and RH postive S: Patient has no complaints. Patient denies sob, vertigo, headache, blurred vision, epigastric pain orpalpitations. Patient reports voiding without difficulty with good urine output. Patient reports ambulating unassisted without difficulty. Tolerating diet, passing flatus. Breast/bottlefeeding. Happy with new baby.No evidence of depression. Patient desires discharge home today. Contraception: unsure re evaluate PP O: General: Alert and oriented. No apparent distress Affect appropriate Heart: regular rate and rhythm. Lungs: good inspiratory effort to inspections, lungs clear to auscultation bilaterally. Breast: soft Abdomen: soft non-tender. Fundus: firm at umbilicus Perineum: intact, no edema, hematoma or abcess Lochia: scant rubra, no clots Extremities: no edema bilaterally. No calf tenderness BP: (93-124)/(45-75) Temp: [36.6 C (97.9 F)-36.9 C (98.5 F)] Temp source: Oral (09/04 0836) Pulse: [60-97] Resp: [18] SpO2: [96 %-100 %] Height: -- Weight: -- BMI (calculated): -- P: Routine instructions reviewed w/ pt. Precautions re: bleed/injury, depression, infection & DVT's reviewed. She was instructed to return to ER if Temp greater than 100.4F, headache unresolved with pain medications, visual disturbances including double orblurry vision, seeing spots, upper abdominal pain, or vaginal bleeding greater than 1 pad per hour. Pelvic rest 6 weeks, and no heavy lifting. DIET: Regular diet ACTIVITY: as tolerated, no strenuous activity and no heavy lifting DISCHARGE MEDICATIONS: Current Discharge Medication List START taking these medications Details acetaminophen (TYLENOL) 650 mg Take 650 mg by mouth every 6 (six) hours as needed for Pain (scale 1-3). Qty: 30 tablet, Refills: 1 Start date: 09/05/2019, End date: 09/04/2020 Associated Diagnoses: 37 weeks gestation of !! docusate calcium (SURFAK) 240 mg Take 240 mg by mouth once daily as needed for Constipation. Qty: 60 capsule, Refills: 1 Start date: 09/05/2019 Associated Diagnoses: 37 weeks gestation of !! docusate calcium (SURFAK) 240 mg Take 240 mg by mouth once daily as needed for Constipation. Qty: 30 capsule, Refills: 1 Start date: 09/05/2019 Associated Diagnoses: 37 weeks gestation of !! ibuprofen (IBU) 600 mg Take 600 mg by mouth every 6 (six) hours as needed (Pain). Take with food or milk. Qty: 60 tablet, Refills: 1 Start date: 09/05/2019 Associated Diagnoses: 37 weeks gestation of !! ibuprofen (IBU) 600 mg Take 600 mg by mouth every 6 (six) hours as needed for Pain (scale 4-6). Qty: 30 tablet, Refills: 1 Start date: 09/05/2019 Associated Diagnoses: 37 weeks gestation of !! vitamin w/FA (PRENATABS RX) 1 tablet Take 1 tablet by mouth daily. Qty: 100 tablet, Refills: 3 Start date: 09/05/2019 Associated Diagnoses: 37 weeks gestation of !! vitamin w/FA (PRENATABS RX) 1 tablet Take 1 tablet by mouth daily. Qty: 60 tablet, Refills: 2 Start date: 09/05/2019 Associated Diagnoses: 37 weeks gestation of !! - Potential duplicate medications found. Please discuss with provider. CONTINUE these medications which have CHANGED Details !! ferrous sulfate 325 mg Take 325 mg by mouth 2 (two) times daily. Qty: 60 tablet, Refills: 2 Start date: 09/05/2019 Associated Diagnoses: 37 weeks gestation of !! - Potential duplicate medications found. Please discuss with provider. CONTINUE these medications which have NOT CHANGED Details ascorbic acid (vitamin C) (VITAMIN C) 500 mg Take 500 mg by mouth 3 (three) times daily. Qty: 90 tablet, Refills: 2 Associated Diagnoses: Anemia of mother in , antepartum !! ferrous sulfate 325 mg Take 325 mg by mouth 2 (two) times daily. Qty: 60 tablet, Refills: 3 Associated Diagnoses: Anemia of mother in , antepartum !! - Potential duplicate medications found. Please discuss with provider. WOUND CARE: .Encouraged appropriate pericare DISCHARGE: Discharged: Home CONDITION AT TIME OF DISCHARGE: Stable FOLLOW-UP APPOINTMENT: With [facility] in 3 week(s) 1 wk telehealth mood check visit needed Darlin Riggs CNM Associated attestation - Corrie Wilson MD - 09/05/2019 11:25 AM CDT Present and available for the caredocumented in this encounter Discharge Instructions Lois Briscoe RN - 09/05/2019Multidisciplinary Discharge Instructions (may include diet, dressing changes, activity limits, written materials given to patient: DIET: Eat a well balanced diet; drink 6-8 glasses of fluids daily; eat fruits and green, leafy vegetables. DAILY ACTIVITIES: 1. As much as you feel able to do. Rest when you are tired. 2. Limitations: Specify; No heavy lifting other than your baby for 4 weeks if you had surgery. TREATMENT AT HOME 1. Use a well-fitting bra to prevent breast engorgement 2. Resume intercourse as instructed by your physician. 3. Do not use douches or tampons for four weeks. 4. To help prevent urinary tract infection; after each urination and bowel movement, wipe and dry from front to back and change yari pad. 5. Follow discharge instructions regarding baby care. 6. Follow family planning instructions. IMMEDIATE TREATMENT - Call Clinic or Your Physician 1. Increase in pain and tenderness of uterus. 2. Increased vaginal bleeding (bright red blood which soaks 2 pads in 1 hour or pass large clots). 3. Foul smelling vaginal discharge. 4. Burning in the tube that empties the urine from the bladder. 5. Painful breast engorgement or cracked nipples. 6. Pain, discharges, or gaping incision. 7. Temperature greater than 38.0C or 100.4F 8. Pain and tenderness of calf or thigh muscles. 9. No bowel movements in 4 days. For Problems or Questions Call: OB Clinic Family Planning [phone] or Emergency: Go to the closest emergency room or call 911 AttachmentsThe following attachments cannot be sent through Care Everywhere. , After Giving: How to Feel Healthy (Vietnamese) Depression, Understanding (Vietnamese)documented in this encounter Plan of Treatment Date Type Specialty Care Team Description 09/13/2019 Telemedicine Visit OB Griselda Denton FNP [address] [place], [place] [address] [phone] 09/28/2019 Routine Visit OB Ad Denton FNP [address] [facility] [place] [place] [address] [phone] Health Maintenance Due Date Last Done Comments [...] encounter Procedures Procedure Name Priority Date/Time Associated Comments Diagnosis CBC WITH DIFFERENTIAL Routine 09/05/2019 5:37 Re sults for this AM CDT procedure are i n the results section. CBC WITH DIFFERENTIAL Routine 09/05/2019 5:37 Re sults for this AM CDT procedure are i n the results section. VENOUS CORD GAS JIM 09/04/2019 9:31 Results for this AM CDT procedure are i n the results section. ARTERIAL CORD GAS JIM 09/04/2019 9:31 Result s for this AM CDT procedure are i n the results section. GALV ONLY - SYPHILIS JIM 09/03/2019 11:06 Res ults for this IGG/IGM PM CDT procedure are i n the results section. HEPATITIS B SURFACE JIM 09/03/2019 11:06 Resu lts for this ANTIGEN PM CDT procedure are i n the results section. RHO (D) IMMUNE Routine 09/03/2019 10:52 Results f or this GLOBULIN PM CDT procedure are i n the results section. HB ABO GROUPING JIM 09/03/2019 10:52 Results for this PM CDT procedure are i n the results section. CORONAVIRUS COVID-19 JIM 09/03/2019 9:55 Res ults for this TESTING PM CDT procedure are i n the results section. documented in this encounter Results CBC WITH DIFFERENTIAL (09/05/2019 5:37 AM CDT) Pathologist Sig nature WBC 12.51 (H) 4.30 - 11.10 [facility] 10*3/L SERVICES RBC 3.60 (L) 3.93 - 5.25 [facility] 10*6/L SERVICES HGB 10.3 (L) 11.6 - 15.0 [facility] g/dL SERVICES HCT 32.4 (L) 35.7 - 45.2 % [facility] MCV 90.0 80.6 - 95.5 fL [facility] MCH 28.6 25.9 - 32.8 pg [facility] MCHC 31.8 31.6 - 35.1 [facility] g/dL SERVICES RDW-SD 43.4 39.0 - 49.9 fL [facility] RDW-CV 13.1 12.0 - 15.5 % [facility] SERVICES PLT 127 (L) 166 - 358 [facility] 10*3/L SERVICES MPV 10.4 9.5 - 12.9 fL [facility] SERVICES NRBC/100 WBC 0.0 0.0 - 10.0 /100 [facility] WBCs SERVICES NRBC x10^3 <0.01 10*3/L [facility] SERVICES GRAN MAT (NEUT) % 70.9 % [facility] IMM GRAN % 1.00 % [facility] LYMPH % 19.7 % [facility] MONO % 6.2 % [facility] EOS % 1.8 % [facility] BASO % 0.4 % [facility] GRAN MAT x10^3(ANC) 8.88 (H) 1.88 - 7.09 [facility] 10*3/uL SERVICES IMM GRAN x10^3 0.12 (H) 0.00 - 0.06 [facility] 10*3/uL SERVICES LYMPH x10^3 2.46 1.32 - 3.29 [facility] 10*3/uL SERVICES MONO x10^3 0.78 0.33 - 0.92 [facility] 10*3/uL SERVICES EOS x10^3 0.22 0.03 - 0.39 [facility] 10*3/uL SERVICES BASO x10^3 0.05 0.01 - 0.07 [facility] 10*3/uL SERVICES Specimen Blood - VENOUS Performing Organization Address City/[facility] Phone Number [facility] CLIA: [id number], [address] [place] [address] [facility] ARTERIAL CORD GAS (09/04/2019 9:31 AM CDT) Pathologist Sig nature BASE EXCESS, CORD -0.3 mEq/L [facility] AC PH, CORD (BEAKER) 7.27 7.18 - 7.38 [facility] PC02, CORD 63 32 - 66 mmHg [facility] PO2, CORD 17 10 - 30 mmHg [facility] BICARBONATE, CORD 28 (H) 17 - 27 mEq/L [facility] Specimen Blood - CORD Performing Organization Address City/[facility] Phone Number [facility] CLIA: [id number], [address] [place] [address] [facility] VENOUS CORD GAS (09/04/2019 9:31 AM CDT) Pathologist Sig nature VENOUS BASE EXCESS, -0.2 mEq/L [facility] CORD SERVICES VENOUS PH, CORD 7.43 7.25 - 7.45 [facility] VENOUS PC02, CORD 36 27 - 49 mmHg [facility] VENOUS PO2, CORD 36 17 - 41 mmHg [facility] VENOUS BICARBONATE, 24 12 - 29 mEq/L [facility] CORD SERVICES Specimen Blood - CORD Performing Organization Address [facility] Phone Number [facility] CLIA: [id number], [address] [place] [phone] [facility] GALV ONLY - SYPHILIS IGG/IGM (09/03/2019 11:06 PM CDT) Pathologist Sig nature SYPH IGG Non-reactiveComment: Non-reactive [facility] Only Syphilis IgG SERVICES tested. Syphilis IgG/IgM assay reagents not available at the time of testing. Specimen Blood - VENOUS Narrative Performed At [facility] Non-reactive - No serologic evidence of T. pallidum infection. Cannot exclude incubating or early syphilis . Submit a second specimen in 2-4 weeks if syphilis is clinically suspected. Equivocal - Further testing to follow. Reactive - Further testing to follow. Performing Organization Address City/State/Zipcode Phone Number [facility] CLIA: [id number], [address] [place] [phone] [facility] Hepatitis B Surface Antigen (09/03/2019 11:06 PM CDT) Pathologist Sig [facility] HBsAg Negative Negative [facility] HBsAg 0.05 [facility] Semi-Quantitative SERVICES Specimen Blood - VENOUS Performing Organization Address City/[facility]/Zipcode Phone Number [facility] CLIA: [id number], [address] [place] [phone] [facility] RHO (D) IMMUNE GLOBULIN (09/03/2019 10:52 PM CDT) Pathologist Sig [facility] RHIG CANDIDATE? No- see comment LAB Comment: Patient is not a candidate for RhIg- Patient is Rh Pos itive. Performed at [facility] Laboratory Services - [facility] Blood [place] [address] Toll Free: [phone] CLIA No. [id number] Specimen Blood - VENOUS Performing Organization Address [facility] Phone Number [facility] LAB Type and Screen - ONCE JIM (09/03/2019 10:52 PM CDT) [facility] ABO & RH AB POSITIVE LAB Comment: Performed at [facility] Laboratory Services - [facility] [place] [address] Toll Free: [phone] CLIA No. [id number] IAT Negative LAB Comment: Performed at [facility] Laboratory Services - [facility] [place] [address] Toll Free: [phone] CLIA No. [id number] Specimen Blood - VENOUS Performing Organization Address City/[facility] Phone Number D LAB CORONAVIRUS COVID-19 TESTING (09/03/2019 9:55 PM CDT) Pathologist [facility] SARS-CoV-2 Not Detected Not Detected [facility] Specimen Swab - NASOPHARYNGEAL SWAB Narrative Performed At [facility] COVID-19 Assay is an isothermal nucleic acid [facility] amplification test intended for the qualitative detect ion of nucleic acid from SARS-CoV-2 viral RNA in nasopharynge al (DIRECTOR [employer]LOBAL MARKET RESEARCH) specimens. It is used under Emergency Use Authori zation (EUA) by FDA. The limit of detection (LOD) of the assa y is 125 Genome Equivalents/mL. A positive result is indicative of the presence of SARS-CoV-2 RNA. Clinical correlation with patient hi story and other diagnostic information is necessary to deter mine patient infection status. A negative (Not Detected) result does not preclude SARS-CoV-2 infection. Clinical correlation with patien t history and other diagnostic information should be use d in patient management decisions. Invalid: Please collect a new specimen for repeat veronica ent testing if clinically indicated. Performing Organization Address City/State/Zipcode Phone Number [facility] CLIA: [id number], [address] [place], [place] [address] [facility] documented in this encounter Visit Diagnoses Diagnosis (spontaneous vaginal delivery) - Mery carr Normal delivery 37 weeks gestation of state, incidental Susceptible to varicella (non-immune), c urrently Supervision of other high-risk Rubella non-immune status, antepartum Other specified complication, antepartum History of delivery Anemia of mother in , antepartu m Anemia, antepartum History of group B Streptococcus (GBS) i nfection Thrombocytopenia affecting Single liveborn Outcome of delivery, single liveborn documented in this encounter Administered Medications Medication Order MAR Action Action Date Dose Rate Site acetaminophen (TYLENOL) tablet Given 09/05/2019 12:09 AM CDT 650 mg 650 mg 650 mg, Oral, Q6HPRN, Starting 09/04/19 at 1426, Until Discontinued, Routine, Pain (scale 1-3) ibuprofen (IBU) tablet 600 mg Given 09/04/2019 2:53 PM CDT 600 mg 600 mg, Oral, Q6HPRN, Starting 09/04/19 at 1426, Until Discontinued, Routine, Pain (scale 4-6) vitamin w/FA (PRENATABS RX) Given 09/05/2019 9:19 AM C DT 1 tablet tablet 1 tablet 1 tablet, Oral, DAILY, First dose on 09/05/19 at 0900, Until Discontinued, Routine Medication Order MAR Action Action Date Dose Rate Site acetaminophen (TYLENOL) tablet Given 09/04/2019 12:29 AM CDT 650 mg 650 mg 650 mg, Oral, ONCE, 1 dose, 09/04/19 at 0130, Routine [id number]-LR IV infusion 1,000 mL New Bag 09/04/2019 3:47 AM CDT 1,000 mL 125 mL/hr at 125 mL/hr, IV Infusion, CONTINUOUS, Starting Fri09/03/19 at 2230, Until 09/04/19 at 1426, Routine lactated ringers IV infusion 500 New Bag 09/04/2019 1:57 AM C DT 500 mL 999 mL/hr mL at 999 mL/hr, 500 mL, IV Infusion, PRN - SEE INSTRUCTIONS, Starting Fri09/03/19 at 2216, Until 09/04/19 at 1426, Routine lactated ringers IV infusion 500 New Bag 09/04/2019 3:48 AM C DT 500 mL 999 mL/hr mL at 999 mL/hr, 500 mL, IV Infusion, ONCE, 1 dose, 09/04/19 at 0315, Routine LR 1000 mL + oxytocin Rate Change 09/04/2019 3:00 AM 6 gerardo-unit s/min 18 mL/hr 20 units IV Solution CDT at 6-120 mL/hr, IV Infusion, TITRATE, Starting Fri09/03/19 at 2250, Until 09/04/19 at 1426, JIM Rate Change 09/04/2019 2:30 AM CDT 4 gerardo-units/min 12 mL/hr New Bag 09/04/2019 1:57 AM CDT 2 gerardo-units/min 6 mL/hr penicillin g pot in dextrose Given 09/04/2019 8:20 AM CDT 3 Million Units 50 mL/hr 3 million unit/50 mL RTU iv piggyback 3 Million Units 3 Million Units, IV Piggyback, Q4H ABX, First dose on 09/04/19 at 0230, Until Discontinued, 50 mL, Reason for Anti-Infective: Empiric Non-Surgical Prophylaxis, Duration of therapy: 72 hours, Specific indication: GBBS Prophylaxis Given 09/04/2019 4:36 AM CDT 3 Million Units 50 mL/hr penicillin g potassium 5 Million Given 09/04/2019 12:29 AM CDT 5 Million Units Units in NaCl 0.9% (NS) 100 mL MINI-BAG 5 Million Units, IV Piggyback, ONCE, 1 dose, 09/03/19 at 2230, 100 mL, Reason for Anti-Infective: Empiric Non-Surgical Prophylaxis, Duration of therapy: 72 hours, Specific indication: GBBS Prophylaxis sodium citrate-citric acid (BICITRA) 500-334 Given 06/2019 1:57 AM CDT 30 mL mg/5 mL solution 30 mL 30 mL, Oral, PRE-PROCEDURE ONCE, 1 dose, Starting 09/03/19 at 2216, Until 09/04/19 at 0157, Routine, Surgery/Procedure documented in this encounter Insurance Payer Benefit Plan / Subscriber ID Effective Phone Address T e Group Dates [facility] xxxxxxxxx 2019-Prese P.O. BOX Medic aid HEALTH CHOICE - [facility] nt [id number] 1 MANAGED MEDICAID [place], [place]ICAID [phone] documented as of this encounter Advance Directives Name Relationship Healthcare Agent Relationship Co mmunication Zenaida Myers Mother Primary healthcare agent
--- OUTSIDE RECORDS SUMMARY | 2019-10-11 12:30 | XMS REPORT | Summary of Care ---
:[address] [facility] Address [address] [place] [address] Care Team Providers Name Role Phone Doctor Unassigned, Name Insurance Hmo Unavailable Tess Templeton [facility] Primary Care Provider Reason for Visit Reason Comments Appointment Tele Health Visit Encounter Details Date Type Department Care Team Description 09/13/2019 [facility] Ap [facility] (Tele [facility] Health [facility]) [address] [facility] [address] [place], [place] [phone] Allergies No Known Allergiesdocumented as of this encounter (statuses as of 09/13/2019) Medications Medication Sig Dispensed Refills Start Date End Date Status ascorbic acid, vitamin Take 1 tablet 90 tablet 2 07/23/2019 Active C, 500 mg by mouth 3 tabletIndications: (three) times Anemia of mother in daily. , antepartum ferrous sulfate 325 mg Take 1 tablet 60 tablet 3 07/23/2019 Active (65 mg iron) by mouth 2 tabletIndications: (two) times Anemia of mother in daily. , antepartum vitamin w/FA Take 1 tablet 100 tablet 3 09/05/2019 Active tabletIndications: 37 by mouth daily. weeks gestation of docusate calcium 240 Take 1 capsule 60 capsule 1 09/05/2019 Active mg capsuleIndications: by mouth once 37 weeks gestation of daily as needed for Constipation. ferrous sulfate 325 mg Take 1 tablet 60 tablet 2 09/05/2019 Active (65 mg iron) by mouth 2 tabletIndications: 37 (two) times weeks gestation of daily. ibuprofen 600 mg Take 1 tablet 60 tablet 1 09/05/2019 Active tabletIndications: 37 by mouth every weeks gestation of 6 (six) hours as needed (Pain). Take with food or milk. acetaminophen 325 mg Take 2 tablets 30 tablet 1 09/05/201907/2020 Active tabletIndications: 37 by mouth every weeks gestation of 6 (six) hours as needed for Pain (scale 1-3). docusate calcium 240 Take 1 capsule 30 capsule 1 09/05/2019 Active mg capsuleIndications: by mouth once 37 weeks gestation of daily as needed for Constipation. ibuprofen 600 mg Take 1 tablet 30 tablet 1 09/05/2019 Active tabletIndications: 37 by mouth every weeks gestation of 6 (six) hours as needed for Pain (scale 4-6). vitamin w/FA Take 1 tablet 60 tablet 2 09/05/2019 Active tabletIndications: 37 by mouth daily. weeks gestation of documented as of this encounter (statuses as of 09/13/2019) Active Problems Problem Noted Date Single liveborn [...] trimester 04/14/2019 Overview: Reports recently quit 03-05-19 documented as of this encounter (statuses as of 09/13/2019) Resolved Problems Problem Noted Date Resolved Date [...] as of this encounter (statuses as of 09/13/2019) Immunizations Name Administration Dates Next Due HPV9 11/03/2017 Influenza Virus Vaccine Quad IM 3+ YRS 02/06/2017 TDAP (ADACEL) VACCINE 07/22/2019, 09/03/2015 Tdap 07/01/2017 documented as of this encounter Social History Tobacco Use Types Packs/Day Years Used Date Former Smoker Cigarettes 20 0.5 Quit: 03/05/20 19 Smokeless Tobacco: Never Used Comments: Quit after Alcohol Use Drinks/Week oz/Week Comments No Sex Assigned at Date Recorded Not on [...] Treatment Date Type Specialty Care Team Description 09/28/2019 Routine Visit OB Satellites Ad Cleveland, SHOW WORKER [address] [place] [address] [phone] Health Maintenance Due Date Last Done Comments [...] ID Effective Phone Address T e Group [facility] xxxxxxxxx 2019-Prese P.O. BOX Medic aid [facility] - [facility] CHO[facility] nt [id number] 1 MANAGED MEDICAID [place], [place] [phone] documented as of this encounter Advance Directives Name Relationship Healthcare Agent Relationship Co mmunication Zenaida Myers Mother Primary healthcare agent
--- OUTSIDE RECORDS SUMMARY | 2019-10-11 12:31 | XMS REPORT | Summary of Care ---
:1995 Author Organization [facility] Address [address] [place] [address] Care Team Providers Name Role Phone Doctor Unassigned, Name Insurance Hmo Unavailable Tess Templeton [facility] Primary Care Provider Reason for Visit Reason Comments Appointment Tele Health Visit Encounter Details Date Type Department Care Team Description 09/13/2019 [facility] Cleveland Ap pointment (Tele [facility] Health Visit) [address] [facility] [address] [place], [place] [phone] Allergies No Known Allergiesdocumented as of this [...] 09/28/2019 Routine Visit OB Satellites Ad Cleveland, RN NEONATAL [address] [place] [address] 15 [phone] Health Maintenance Due Date Last Done Comments [...] ID Effective Phone Address T e Group [facility] xxxxxxxxx 2019-Prese P.O. BOX Medic aid HE[facility] CHOICE - [facility] CHOICE nt [id number] 1 MANAGED MEDICAID [place] [phone] documented as of this encounter Advance Directives Name Relationship Healthcare Agent Relationship Co mmunication Zenaida Myers Mother Primary healthcare agent
--- OUTSIDE RECORDS SUMMARY | 2019-10-11 12:32 | XMS REPORT | Summary of Care ---
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) 110[address] [facility] [address] [place], [place] [phone] Allergies No Known Allergiesdocumented as of this encounter (statuses as of 09/29/2019) Medications Medication Sig Dispensed Refills Start Date [...] as of this encounter (statuses as of 09/29/2019) Active Problems Problem Noted Date Single liveborn [...] as of this encounter (statuses as of 09/29/2019) Resolved Problems Problem Noted Date Resolved Date [...] as of this encounter (statuses as of 09/29/2019) Immunizations Name Administration Dates Next Due HPV9 [...] Treatment Date Type Specialty Care Team Description 09/30/2019 Routine Visit [facility] Satellites Ad Cleveland, LINE INSTALLATION SUPERVISOR [address] [place] [address] [phone] Health Maintenance Due Date Last Done Comments [...] ID Effective Phone Address T e Group [facility] xxxxxxxxx 2019-Prese P.O. BOX Medic aid HEALTH CHOICE - HEALTH CHOICE nt [id number] 1 MANAGED MEDICAID [place] [phone] documented as of this encounter Advance Directives Name Relationship Healthcare Agent Relationship Co mmunication Zenaida Myers Mother Primary healthcare agent
--- OUTSIDE RECORDS SUMMARY | 2019-10-11 12:32 | XMS REPORT | Summary of Care ---
:1995 Author Organization [facility] Address [address] [place] [address] Care Team Providers Name Role Phone Doctor Unassigned, Name Insurance Hmo Unavailable Tess Templeton [facility] Primary Care Provider Reason for Visit Reason Comments Assessment Post- Depression Encounter Details Date Type Department Care Team Description 09/10/2019 Telephone [facility] Templeton Ass essment (Post- [place] C, [facility] Depression) 110[address] [facility] [address] [facility] [phone] [place], [place] [phone] Allergies No Known Allergiesdocumented as of this [...] 09/28/2019 Routine Visit OB 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 BOX Medic aid HE[facility] CHOICE - HEALTH CHOICE nt [id number] 1 MANAGED MEDICAID [place] [phone] documented as of this encounter Advance Directives Name Relationship Healthcare Agent Relationship Co mmunication Zenaida Myers Mother Primary healthcare agent
--- OUTSIDE RECORDS SUMMARY | 2019-10-11 12:32 | XMS REPORT | Summary of Care ---
:1995 Author Organization [facility] Address [address] [place] [address] Care Team Providers Name Role Phone Doctor Unassigned, Name Insurance Hmo Unavailable Tess Templeton [facility] Primary Care Provider Reason for Visit Reason Comments Appointment Tele Health Visit Encounter Details Date Type Department Care Team Description 09/13/2019 [facility] Cleve[facility]nd Ap pointment (Tele [facility] Health Visit) [address] [facility] [address] [place], [place] [phone] Allergies No Known Allergiesdocumented as of this encounter (statuses as of 09/14/2019) Medications Medication Sig Dispensed Refills Start Date [...] as of this encounter (statuses as of 09/14/2019) Active Problems Problem Noted Date Single liveborn [...] as of this encounter (statuses as of 09/14/2019) Resolved Problems Problem Noted Date Resolved Date [...] as of this encounter (statuses as of 09/14/2019) Immunizations Name Administration Dates Next Due HPV9 [...] 09/28/2019 Routine Visit OB Satellites Ad Cleveland, CARPORT ERECTOR [address] [place] [address] [phone] Health Maintenance Due Date Last Done Comments [...] aid HE[facility] CHOICE - HE[facility] CHOICE nt [id number] 1 MANAGED MEDICAID [place] [phone] documented as of this encounter Advance Directives Name Relationship Healthcare Agent Relationship Co mmunication Zenaida Myers Mother Primary healthcare agent
--- OUTSIDE RECORDS SUMMARY | 2019-10-11 12:34 | XMS REPORT | Summary of Care ---
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 antepartum condition [address] [place] [address] or complication [place], [place] (Primary Dx) [address] [place], [place] [phone] Allergies No Known Allergiesdocumented as of this encounter (statuses as of 09/30/2019) Medications Medication Sig Dispensed Refills Start Date [...] as of this encounter (statuses as of 09/30/2019) Active Problems Problem Noted Date Post term , antepartum condition or complicat ion 09/30/2019 Single liveborn 09/05/2019 (spontaneous vaginal delivery) 09/05/2019 [...] as of this encounter (statuses as of 09/30/2019) Resolved Problems Problem Noted Date Resolved Date [...] as of this encounter (statuses as of 09/30/2019) Immunizations Name Administration Dates Next Due HPV9 [...] encounter Progress Notes Dean Cleveland FNP - 09/30/2019 9:45 AM CDT Chief complaint: Chief Complaint Patient presents with Care Tele Health Visit TELEHEALTH NOTE Verbal consent obtained from Patient: Kimmy Archer and Care Provider: NIDA Pearl due to the COVID-19 pandemic for telehealth services provided below. Communication with patient was conducted via Telephone due to patient unable to obtain video call option. Location of Patient: Home Location of Provider: Clinic Date of Service: 09/30/2019 Chief Complaint: Visit via Tele Health HPI: Kimmy Archer is a 24 year old female with Past Medical History: Diagnosis Date Anemia of mother in , antepartum 07/02/2017 Resovled per pt report Thrombocytopenia affecting 09/03/2019 ROS See Note TELEHEALTH EXAM Constitutional: Alert and no distress Respiratory: Breathing comfortably Neurology: Answers questions appropriately Psychological: Affect Normal ASSESSMENT/ PLAN After visit summary (AVS ) documentation will be available through [email or web address] for this encounter. A total of 15 minutes was spent on the Telephone due to patient unable to obtain video call option. Dean Cleveland, NIDA HPI The patient is here for a routine PP visit. Patient delivered female via on 09/04/2019. She has no complaints today. She states that she is formula feeding her , is bonding well, and coping well with less sleep. She reports that she has no pain, small lochia, and denies all s/s of PP depression. She wants Depo Provera for PP contraception. Histories OB History Para Term AB Living 6 5 4 1 1 4 SAB TAB Ectopic Multiple Live Births 1 0 2 # Outcome Date GA Lbr Sumeet/2nd Weight Sex Delivery Anes PTL Lv 6 Term 09/04/19 38w0d 7 lb 2.6 oz (3.25 kg) F NORMAL SPONT EPI DEANN 5 Term 09/13/17 38w5d M VAGINAL DEANN 4 10/08/16 36w0d M VAGINAL Complications: PROM (premature rupture of membranes) 3 Term 08/14/15 38w0d F VAGINAL 2 Term 04/15/12 40w0d M VAGINAL 1 SAB 06/05/09 7w0d Past Medical History: Diagnosis Date Anemia of mother in , antepartum 07/02/2017 Resovled per pt report Thrombocytopenia affecting 09/03/2019 Family History Problem Relation Age of Onset [...] Last attempt to quit: 03/05/2019 Years since quittin.5 Smokeless tobacco: Never Used Tobacco comment: Quit [...] medication list which includes the following prescription(s): acetaminophen, docusate calcium, docusate calcium, ferrous sulfate, ibuprofen, ibuprofen, vitamin w/fa, vitamin w/fa, ascorbic acid (vitamin c), and ferrous sulfate. Review of Systems Constitutional: Negative for activity change, appetite change, fatigue, unexpected weight change, weight gain and weight loss. HENT: Negative for sore throat. Eyes: Negative for visual disturbance. Respiratory: Negative for cough and shortness of breath. Breasts: Negative for discharge, mass, pain and unequal size. Cardiovascular: Negative for chest pain, palpitations and leg swelling. Gastrointestinal: Negative. Negative for abdominal pain, anal bleeding, blood in stool, constipation, diarrhea, nausea, rectal pain and vomiting. Genitourinary: Negative for bladder incontinence, dysuria, urgency, flank pain, vaginal bleeding, vaginal discharge, genital sores, vaginal pain and pelvic pain. Skin: Negative for color change and rash. Neurological: Negative. Negative for dizziness, syncope and headaches. Psychiatric/Behavioral: Negative for confusion, self-injury and sleep disturbance. The patient is not nervous/anxious. Hematological: Negative for cold intolerance and heat intolerance. Endocrine: Negative for hair loss, cold intolerance, heat intolerance, weight gain and weight loss. LMP 12/12/2018 (Approximate) Pregravid BMI: 20.5 Physical Exam See Tele Health Note Assessment/Plan Post term , antepartum condition or complication (primary encounter diagnosis) Comment: Routine Visit Plan: Denies zika virus risk, signs and symptoms such as fever,rash,joint pain, conjunctivitis (red eyes), muscle pain, headaches; outside [place] travel to areas affected by zika, and FOB exposure to zika.Educated on use of mosquito repellent. Covid x12 screening done, screening results are negative. Return to clinic in 3 weeks for 6wk/WWE. Discussed treatment options. Medications as ordered. Reviewed patient instructions and provided printed copy. This visit did not involve counseling and coordination that comprised more than 50% of the visit time. NIDA Pearl 09/30/2019 10:47 AM documented in this encounter Plan of Treatment Date Type Specialty Care Team Description 10/21/2019 Office Visit OB Satellites Dean Cleveland FNP [address] [address] [phone] Health Maintenance Due Date Last Done Comments [...] 08/16/2020 08/17/2019, 04/14/2019, 04/14/2019, Additional history exists Depression Screening 08/31/2020 09/01/2019 DTaP,Tdap,and Td Vaccines 07/21/2029 07/22/2019, 07/01/2017 , (4 - Td) 09/03/2015 PNEUMOCOCCAL 0-64 YEARS Discontinued COMBINED SERIES documented as of this encounter Results Not on filedocumented in this encounter Visit Diagnoses Diagnosis Post term , antepartum conditio n or complication - Primary documented in this encounter Insurance Payer Benefit Plan / Subscriber ID Effective Phone Address T e Group [facility] xxxxxxxxx 2019-Prese P.O. BOX Medic aid HEALTH CHOICE - HE[place] CHO[place] nt [id number] 1 MANAGED MEDICAID [place], [place] [phone] documented as of this encounter Advance Directives Name Relationship Healthcare Agent Relationship Co mmunication Zenaida Myers Mother Primary healthcare agent
== END 2019-10-11 11:30 | disposition home or self-care (01) ==
LOC: ER 09:23
DX: S00.81XA Abrasion of other part of head, initial encounter (principal); S80.812A Abrasion, left lower leg, initial encounter; W19.XXXA Unspecified fall, initial encounter; Y93.01 Activity, walking, marching and hiking; Y92.9 Unspecified place or not applicable
CPT/HCPCS: 99283

== ENCOUNTER 2019-11-01 09:30 | Emergency (ER) | payer OTHER ==
--- NOTE | 2019-11-01 10:26 | EDPHYS ---
Physician Documentation [facility] Name: Kimmy Archer Age: 24 yrs Sex: Female : 1995 Arrival Date: 11/01/2019 Time: 09:33 Bed 19 Private MD: ED Physician Hussein Mosqueda HPI: 10/31 10:20 This 24 yrs old Female presents to ER via Ambulatory with complaints of donis Sunburn. 10:20 The patient presents with a burn as a result of sunburn. Onset: The symptoms/episode donis began/occurred 1 day(s) ago. Burn type and severity: 1st degree: approximately 15% total body surface area of 1st degree injury. Associated signs and symptoms: none. The patient has not experienced similar symptoms in the past. Historical: - Allergies: :52 No Known Allergies; ss - Home Meds: :52 None [Active]; ss - PMHx: :52 None; ss - PSHx: :52 None; ss - Immunization history:: Adult Immunizations up to date. - Social history:: Smoking status: Patient denies any tobacco usage or history of. - Family history:: not pertinent. ROS: 10:20 Constitutional: Negative for fever, chills, and weight loss, Eyes: Negative for injury, donis pain, redness, and discharge, ENT: Negative for injury, pain, and discharge, Neck: Negative for injury, pain, and swelling, Cardiovascular: Negative for chest pain, palpitations, and edema, Respiratory: Negative for shortness of breath, cough, wheezing, and pleuritic chest pain, Abdomen/GI: Negative for abdominal pain, nausea, vomiting, diarrhea, and constipation, Back: Negative for injury and pain, : Negative for injury, bleeding, discharge, and swelling, MS/Extremity: Negative for injury and deformity, Neuro: Negative for headache, weakness, numbness, tingling, and seizure, Psych: Negative for depression, anxiety, suicide ideation, homicidal ideation, and hallucinations, Allergy/Immunology: Negative for hives, rash, and allergies, Endocrine: Negative for neck swelling, polydipsia, polyuria, polyphagia, and marked weight changes, Hematologic/Lymphatic: Negative for swollen nodes, abnormal bleeding, and unusual bruising. 10:20 Skin: Positive for burn, erythema, swelling, of the back, right leg and left leg. Exam: 10:20 Constitutional: This is a well developed, well nourished patient who is awake, alert, donis and in no acute distress. Head/Face: Normocephalic, atraumatic. Eyes: Pupils equal round and reactive to light, extra-ocular motions intact. Lids and lashes normal. Conjunctiva and sclera are non-icteric and not injected. Cornea within normal limits. Periorbital areas with no swelling, redness, or edema. ENT: Nares patent. No nasal discharge, no septal abnormalities noted. Tympanic membranes are normal and external auditory canals are clear. Oropharynx with no redness, swelling, or masses, exudates, or evidence of obstruction, uvula midline. Mucous membranes moist. Neck: Trachea midline, no thyromegaly or masses palpated, and no cervical lymphadenopathy. Supple, full range of motion without nuchal rigidity, or vertebral point tenderness. No Meningismus. Chest/axilla: Normal chest wall appearance and motion. Nontender with no deformity. No lesions are appreciated. Cardiovascular: Regular rate and rhythm with a normal S1 and S2. No gallops, murmurs, or rubs. Normal PMI, no JVD. No pulse deficits. Respiratory: Lungs have equal breath sounds bilaterally, clear to auscultation and percussion. No rales, rhonchi or wheezes noted. No increased work of breathing, no retractions or nasal flaring. Abdomen/GI: Soft, non-tender, with normal bowel sounds. No distension or tympany. No guarding or rebound. No evidence of tenderness throughout. Back: No spinal tenderness. No costovertebral tenderness. Full range of motion. Neuro: Awake and alert, GCS 15, oriented to person, place, time, and situation. Cranial nerves II-XII grossly intact. Motor strength 5/5 in all extremities. Sensory grossly intact. Cerebellar exam normal. Normal gait. Psych: Awake, alert, with orientation to person, place and time. Behavior, mood, and affect are within normal limits. 10:20 Skin: Appearance: Color: erythematous, Temperature: normal temperature, Moisture: normal moisture, petechiae, not noted, ecchymosis, not noted, abscess, not appreciated, cellulitis, is not appreciated, induration, is not appreciated, injury, burn(s), 1st degree burn injury covers approximately 15% of the total body surface area, and is located on the back, right leg and left leg. Vital Signs: 09:50 BP 96 / 59; Pulse 92; Resp 16; Temp 99.1(TE); Pulse Ox 100% on R/A; Weight 61.23 kg; ss Height 5 ft. 8 in. (172.72 cm); Pain 8/10; 09:50 Body Mass Index 20.53 (61.23 kg, 172.72 cm) MDM: 09:48 Patient medically screened. [facility] 10:25 Data reviewed: vital signs, nurses notes. [facility] 10:28 Differential diagnosis: 1st degree sandoval, 2nd degree sandoval. Data interpreted: Cardiac donis monitor: not applicable for this patient encounter. rate is 92 beats/min, Pulse oximetry: on room air is 100 %. Counseling: I had a detailed discussion with the patient and/or guardian regarding: the historical points, exam findings, and any diagnostic results supporting the discharge/admit diagnosis, the need for outpatient follow up, for definitive care, a family practitioner. Medication response: motrin and prednisone. Administered Medications: 10:23 Drug: predniSONE 60 mg Route: PO; 10:43 Follow up: Response: No adverse reaction 10:23 Drug: Motrin 600 mg Route: PO; 10:43 Follow up: Response: No adverse reaction Disposition: 11/01/19 10:26 Discharged to Home. Impression: Sunburn of first degree, Sunburn. - Condition is Stable. - Discharge Instructions: Burn Care, Adult, Sunburn, Adult, Burn Care, [id number], Sunburn, [id number]. - Prescriptions for Ibuprofen 600 mg Oral Tablet - take 1 tablet by ORAL route every 6 hours As needed take with food; 12 tablet. Prednisone 20 mg Oral Tablet - take 3 tablets by ORAL route once daily for 3 days; 9 tablet. - Work release form, Medication Reconciliation Form, Thank You Letter, Antibiotic Education, Prescription Opioid Use form. - Follow up: Private Physician; When: 2 - 3 days; Reason: Recheck today's complaints, Re-evaluation by your physician. - Problem is new. - Symptoms have improved. Signatures: Hussein Mosqueda MD MD cha Smirch, Shelby, RN RN Janice Jones RN RN Corrections: (The following items were deleted from the chart) 10:53 10:26 11/01/2019 10:26 Discharged to Home. Impression: Sunburn of first degree; ah Sunburn. Condition is Stable. Forms are Medication Reconciliation Form, Thank You Letter, Antibiotic Education, Prescription Opioid Use. Follow up: Private Physician; When: 2 - 3 days; Reason: Recheck today's complaints, Re-evaluation by your physician. Problem is new. Symptoms have improved. donis
--- NOTE | 2019-11-01 10:26 | ER ---
Nurse's Notes [facility] Name: Kimmy Archer Age: 24 yrs Sex: Female : 1995 Arrival Date: 11/01/2019 Time: 09:33 Bed 19 Private MD: Diagnosis: Sunburn of first degree;Sunburn Presentation: 10/31 09:50 Chief complaint: Patient states: sunburn to top of back and bilateral legs that began ss yesterday. Pt reports she usually does not sunburn so she does not wear sunscreen and didn't realize she was getting a sunburn. Coronavirus screen: Proceed with normal triage. Patient denies a cough. Patient denies shortness of breath or difficulty breathing. Patient denies measured and/or subjective temperature greater than 100.4F prior to today's visit. Patient denies travel on a cruise ship or to a country the [facility] currently lists as an affected area. Patient denies contact with known and/or suspected case of COVID-19. Ebola Screen: Patient denies exposure to infectious person. Patient denies travel to an Ebola-affected area in the 21 days before illness onset. Initial Sepsis Screen: Does the patient meet any 2 criteria? No. Patient's initial sepsis screen is negative. Does the patient have a suspected source of infection? No. Patient's initial sepsis screen is negative. Risk Assessment: Do you want to hurt yourself or someone else? Patient reports no desire to harm self or others. Onset of symptoms was October 31, 2019. 09:50 Method Of Arrival: Ambulatory ss 09:50 Acuity: LILIANA 5 Triage Assessment: 10:44 Injury Description: Historical: - Allergies: 09:52 No Known Allergies; ss - Home Meds: 09:52 None [Active]; ss - PMHx: 09:52 None; ss - PSHx: 09:52 None; ss - Immunization history:: Adult Immunizations up to date. - Social history:: Smoking status: Patient denies any tobacco usage or history of. - Family history:: not pertinent. Screenin:54 Abuse screen: Denies threats or abuse. Denies injuries from another. Nutritional ss screening: No deficits noted. Tuberculosis screening: No symptoms or risk factors identified. Never had TB. Fall Risk None identified. Assessment: 09:54 General: Appears uncomfortable, Behavior is calm, cooperative, Denies fever, feeling ss ill. Pain: Complains of pain in Top of back, neck Pain currently is 6 out of 10 on a pain scale. at worst was 10 out of 10 on a pain scale. Quality of pain is described as burning, tender, Pain began yesterday, worse this AM Is continuous, Aggravated by increased activity, repositioning. 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 Cardiovascular: Capillary refill < 3 seconds is brisk in bilateral fingers Patient's skin is warm and dry. Respiratory: Airway is patent Respiratory effort is even, unlabored, Respiratory pattern is regular, symmetrical. GI: Patient currently denies abdominal pain, diarrhea, nausea, vomiting. : No signs and/or symptoms were reported regarding the genitourinary system. EENT: Nares are clear Oral mucosa is moist. Throat is clear. Derm: Skin is dry, Skin is red, Skin temperature is hot. Musculoskeletal: Circulation, motion, and sensation intact. Range of motion: intact in all extremities, Swelling absent. Vital Signs: 09:50 BP 96 / 59; Pulse 92; Resp 16; Temp 99.1(TE); Pulse Ox 100% on R/A; Weight 61.23 kg; Height 5 ft. 8 in. (172.72 cm); Pain 8/10; 09:50 Body Mass Index 20.53 (61.23 kg, 172.72 cm) ED Course: 09:33 Patient arrived in ED. fj1 09:35 Hussein Mosqueda MD is Attending Physician. [facility] 09:52 Triage completed. 09:52 Arm band placed on right wrist. 09:54 Patient has correct armband on for positive identification. Bed in low position. Call light in reach. 10:03 Janice Jones, RN is Primary Nurse. 10:44 No provider procedures requiring assistance completed. Patient did not have IV access ah during this emergency room visit. Administered Medications: 10:23 Drug: predniSONE 60 mg Route: PO; ah 10:43 Follow up: Response: No adverse reaction 10:23 Drug: Motrin 600 mg Route: PO; 10:43 Follow up: Response: No adverse reaction Outcome: 10:26 Discharge ordered by . donis 10:35 Discharged to home ambulatory. 10:35 Condition: good 10:35 Discharge instructions given to patient, Instructed on discharge instructions, follow up and referral plans. Demonstrated understanding of instructions, follow-up care, medications. 10:53 Patient left the ED. Signatures: Hussein Mosqueda MD MD cha Smirch, Shelby, RN RN García Sharp fj1 Janice Jones RN RN
[2019-11-01] MEDS ORDERED: IBUPROFEN 200 MG TAB PO ONE (10:29)
[2019-11-01] MEDS ORDERED: IBUPROFEN 400 MG TAB ONE (10:29)
[2019-11-01] MEDS ORDERED: predniSONE 20 MG TAB ONE (10:29)
[2019-11-01 10:59] VITALS: BP 96/59; TEMP 99.1; O2SAT 100
--- OUTSIDE RECORDS SUMMARY | 2019-11-01 13:38 | XMS REPORT | Continuity of Care Document ---
:1995 Author Organization [facility] t Address [address] [place] [place] [address] Care Team Providers Name Role Phone Ad [...] 2019-09-30 2019-09-30 [facility] [place] [id number] 07:26:37 10:46:56 ne Visit Dean Duong SUPPORT TEACHER [id number] REGIONAL [id number] MATERNAL [phone] & CHILD [address] [facility] 2019-09-28 2019-09-28 Telephone [facility] [place] [id number] 00:00:00 00:00:00 Dean Duong SUPPORT TEACHER [id number] REGIONAL [id number] MATERNAL [phone] & CHILD [address] [facility] 2019-09-13 2019-09-13 Telephone [facility] [place] [id number] 00:00:00 00:00:00 Dean R SUPPORT TEACHER [id number] REGIONAL [id number] MATERNAL [phone] & CHILD [address] [facility] Results This patient has no known results.
== END 2019-11-01 10:53 | disposition home or self-care (01) ==
LOC: ER 09:30
DX: L55.0 Sunburn of first degree (principal)
CPT/HCPCS: 99283; J7512

== ENCOUNTER 2020-07-22 00:02 | Emergency (ER) | payer OTHER ==
--- OUTSIDE RECORDS SUMMARY | 2020-07-22 00:05 | XMS REPORT | Continuity of Care Document ---
:1995 Author Organization [facility] t Address [address] [place] [address] Care Team Providers Name Role Phone Ad Thomson Attending Clinician Problems This patient has no known problems. Allergies, Adverse Reactions, Alerts This patient has no known allergies or adverse reactions. Medications This patient has no known medications. Procedures This patient has no known procedures. 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
[2020-07-22] MEDS ORDERED: MORPHINE 4 MG/ML SYR ONE ×2 (00:27→02:32)
[2020-07-22] MEDS ORDERED: ONDANSETRON 4 MG/2 ML VIAL ONE (00:27)
[2020-07-22] MEDS ORDERED: NA CHLORIDE 0.9% 1,000 ML ONE (00:30)
[2020-07-22] MEDS ORDERED: MORPHINE 2 MG/ML SYR ONE (01:29)
[2020-07-22 01:33] LABS: Urine Blood 3+ (NEG); Urine Glucose TRACE (NEG); Urine Protein 3+ (NEG); Urine Specific Gravity 1.015 (1.005-1.030); Urine pH >8.5 (5.0-7.0)
[2020-07-22 01:55] LABS: Absolute Lymphocytes (CBC) 3.3 K/uL (0.7-4.9); Basophils % 0.6 % (0-1.3); Hematocrit 38.9 % (36.0-45.0); Lymphocytes % 35.2 % (15.3-44.8); MPV 9.2 fL (7.6-11.3); RBC Red Blood Cell Count 4.27 M/uL (3.86-4.86)
[2020-07-22 02:21] LABS: ALT/SGPT 14 U/L (12-78); AST/SGOT 7 U/L (15-37); Albumin 4.4 g/dL (3.4-5.0); Alkaline Phosphatase 44 U/L (45-117); Bilirubin Direct < 0.1 mg/dL (0-0.2); Bilirubin Total 0.3 mg/dL (0.2-1.0); Protein, Total 7.7 g/dL (6.4-8.2)
[2020-07-22 02:26] LABS: BUN Blood Urea Nitrogen 6 mg/dL (7-18); Bicarbonate 22 mmol/L (21-32); Glucose Level 84 mg/dL (74-106); HCG, Quantitative 1666 mIU/mL (1-3); Sodium Level 137 mmol/L (136-145)
[2020-07-22 02:27] LABS: Potassium 2.8 mmol/L (3.5-5.1)
[2020-07-22] MEDS ORDERED: POTASSIUM 25 MEQ EFFERV TAB ONE (03:12)
--- NOTE | 2020-07-22 04:46 | ER ---
Nurse's Notes [facility] Name: Kimmy Archer Age: 25 yrs Sex: Female : 1995 Arrival Date: 07/22/2020 Time: 00:06 Bed 23 Private MD: Diagnosis: Inevitable ;UTI Presentation: 07/22 00:00 Method Of Arrival: EMS: [facility] dm5 00:00 Chief complaint: Patient states: bleeding earlier in the day and started to get worse dm5 in the 2 hours prior to arrival. pt felt a lot of blood and got into the bathtub and passed some tissue. Pt states that she is in a lot of pain and feels pressure. Pt is crying and yelling, distraught. Coronavirus screen: Client denies travel out of the [place] in the last 14 days. At this time, the client does not indicate any symptoms associated with coronavirus-19. Ebola Screen: Patient negative for fever greater than or equal to 101.5 degrees Fahrenheit, and additional compatible Ebola Virus Disease symptoms Patient denies exposure to infectious person. Patient denies travel to an Ebola-affected area in the 21 days before illness onset. No symptoms or risks identified at this time. Initial Sepsis Screen: Does the patient meet any 2 criteria? No. Patient's initial sepsis screen is negative. Does the patient have a suspected source of infection? No. Patient's initial sepsis screen is negative. Risk Assessment: Do you want to hurt yourself or someone else? Patient reports no desire to harm self or others. Onset of symptoms was July 22, 2020. 00:00 Acuity: LILIANA 3 dm5 Triage Assessment: 00:00 General: Appears distressed, uncomfortable, Behavior is cooperative. Pain: Complains of dm5 pain in suprapubic area. Neuro: No deficits noted. Cardiovascular: No deficits noted. Respiratory: No deficits noted. Airway is patent Respiratory effort is even, unlabored, Respiratory pattern is regular, symmetrical. GI: No signs and/or symptoms were reported involving the gastrointestinal system. : Reports vaginal bleeding that is bright red, heavy flow. 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 - Social history:: Smoking status: unknown. Screenin:05 Abuse screen: Denies threats or abuse. Denies injuries from another. Nutritional dm5 screening: No deficits noted. Tuberculosis screening: No symptoms or risk factors identified. Fall Risk None identified. Assessment: 01:05 Obstetrical Assessment: General assessment: awake and alert, respirations even and dm5 unlabored, Contractions are every ten minutes, Patient reports abdominal cramping, rectal pressure, Abdominal pain. 02:00 Reassessment: Patient appears in no apparent distress at this time. Patient and/or dm5 family updated on plan of care and expected duration. Pain level reassessed. Patient is alert, oriented x 3, equal unlabored respirations, skin warm/dry/pink. Patient states symptoms have improved. 03:14 Reassessment: Patient appears in no apparent distress at this time. No changes from dm5 previously documented assessment. Patient and/or family updated on plan of care and expected duration. Pain level reassessed. Patient is alert, oriented x 3, equal unlabored respirations, skin warm/dry/pink. pt appears to be resting comfortably. 04:34 Reassessment: Patient appears in no apparent distress at this time. Patient and/or dm5 family updated on plan of care and expected duration. Pain level reassessed. Patient is alert, oriented x 3, equal unlabored respirations, skin warm/dry/pink. awaiting discharge by provider. Vital Signs: 00:00 BP 93 / 79; Pulse 125; Resp 26; Temp 97.7; Pulse Ox 100% ; dm5 00:13 BP 111 / 76; Pulse 82; Resp 22; Pulse Ox 100% on R/A; dm5 00:34 BP 110 / 54; Pulse 68; Resp 20; Pulse Ox 100% on R/A; dm5 01:00 BP 103 / 59; Pulse 55; Resp 18; Pulse Ox 100% on R/A; dm5 01:07 BP 99 / 63; Pulse 67; Resp 18; Pulse Ox 100% on R/A; dm5 01:30 BP 94 / 52; Pulse 61; Resp 16; Pulse Ox 100% on R/A; dm5 02:00 BP 120 / 73; Pulse 64; Resp 16; Pulse Ox 96% on R/A; dm5 ED Course: 00:00 Arm band placed on. dm5 00:06 Patient arrived in ED. cg 00:13 Elijah Castro MD is Attending Physician. 7 00:58 Dragan Drake, RN is Primary Nurse. rr5 01:02 Triage completed. dm5 01:05 Patient has correct armband on for positive identification. dm5 02:39 US Transvaginal Ob In Process Unspecified. EDMS 03:19 Ekaterina Davis, RN is Primary Nurse. dm5 Administered Medications: 00:06 Drug: NS 0.9% 1000 ml Route: IV; Rate: 1 bolus; Site: right antecubital; dm5 01:00 Follow up: IV Status: Completed infusion; IV Intake: 1000ml dm5 00:08 Drug: Zofran (Ondansetron) 4 mg Route: IVP; Site: right antecubital; dm5 00:30 Follow up: Response: No adverse reaction; No change in condition dm5 00:10 Drug: morphine 4 mg Route: IVP; Site: right antecubital; dm5 00:30 Follow up: Response: No adverse reaction dm5 01:15 Drug: morphine 2 mg Route: IVP; Site: right antecubital; dm5 01:45 Follow up: Response: No adverse reaction; Pain is decreased dm5 02:20 Drug: morphine 4 mg Route: IVP; Site: right antecubital; dm5 02:50 Follow up: Response: No adverse reaction; Pain is decreased dm5 02:21 CANCELLED (Duplicate Order): morphine 2 mg IVP once; (PAIN>8) RASS on ADMN: Combtv4, dm5 Very Agttd3, Agttd2, Rstlss1, AlertClm0, Drwsy-1, LtSdtn-2, ModSdtn-3, DpSdtn-4, UnArsble-5 x2 03:03 Drug: Potassium Effervescent Tablet 50 mEq Route: PO; dm5 03:18 Follow up: Response: No adverse reaction dm5 Intake: 01:00 IV: 1000ml; Total: 1000ml. dm5 Outcome: 04:45 Discharge ordered by . 7 05:27 Patient left the ED. dm5 Signatures: Dispatcher [employer] EDKY Susan, Ekaterina, RN RN dm5 Miranda Suazo RN RN Dragan Drake RN RN rr5 Elijah Castro MD MD mh7 Corrections: (The following items were deleted from the chart) 02:20 01:30 morphine 2 mg IVP in right antecubital dm5 dm5
--- NOTE | 2020-07-22 04:46 | EDPHYS ---
Physician Documentation [facility] Name: Kimmy Archer Age: 25 yrs Sex: Female : 1995 Arrival Date: 07/22/2020 Time: 00:06 Bed 23 Private MD: ED Physician Elijah Castro HPI: 07/22 00:49 This 25 yrs old Female presents to ER via Unassigned with complaints of mh7 Vaginal Bleeding. 00:50 The patient presents with vaginal bleeding that is heavy, with clots. Onset: The mh7 symptoms/episode began/occurred yesterday. Modifying factors: The symptoms are alleviated by nothing, the symptoms are aggravated by nothing. Associated signs and symptoms: Pertinent positives: cramping, Pertinent negatives: constipation, diarrhea, dyspareunia, dysuria, fever, hematuria, nausea, urinary frequency, vaginal discharge, vomiting. Severity of symptoms: At their worst the symptoms were moderate, earlier today, in the emergency department the symptoms are unchanged. The patient is sexually active. 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 - Social history:: Smoking status: unknown. ROS: 00:50 Constitutional: Negative for fever, chills, and weight loss, Eyes: Negative for injury, mh7 pain, redness, and discharge, ENT: Negative for injury, pain, and discharge, Neck: Negative for injury, pain, and swelling, Cardiovascular: Negative for chest pain, palpitations, and edema, Respiratory: Negative for shortness of breath, cough, wheezing, and pleuritic chest pain, Abdomen/GI: Negative for abdominal pain, nausea, vomiting, diarrhea, and constipation, Back: Negative for injury and pain, MS/Extremity: Negative for injury and deformity, Skin: Negative for injury, rash, and discoloration, Neuro: Negative for headache, weakness, numbness, tingling, and seizure, Psych: Negative for depression, anxiety, suicide ideation, homicidal ideation, and hallucinations, Allergy/Immunology: Negative for hives, rash, and allergies, Endocrine: Negative for neck swelling, polydipsia, polyuria, polyphagia, and marked weight changes, Hematologic/Lymphatic: Negative for swollen nodes, abnormal bleeding, and unusual bruising. Exam: 00:50 Head/Face: Normocephalic, atraumatic. Eyes: Pupils equal round and reactive to light, mh7 extra-ocular motions intact. Lids and lashes normal. Conjunctiva and sclera are non-icteric and not injected. Cornea within normal limits. Periorbital areas with no swelling, redness, or edema. Neck: Trachea midline, no thyromegaly or masses palpated, and no cervical lymphadenopathy. Supple, full range of motion without nuchal rigidity, or vertebral point tenderness. No Meningismus. Chest/axilla: Normal chest wall appearance and motion. Nontender with no deformity. No lesions are appreciated. Cardiovascular: Regular rate and rhythm with a normal S1 and S2. No gallops, murmurs, or rubs. Normal PMI, no JVD. No pulse deficits. Respiratory: Lungs have equal breath sounds bilaterally, clear to auscultation and percussion. No rales, rhonchi or wheezes noted. No increased work of breathing, no retractions or nasal flaring. Abdomen/GI: Soft, non-tender, with normal bowel sounds. No distension or tympany. No guarding or rebound. No evidence of tenderness throughout. Back: No spinal tenderness. No costovertebral tenderness. Full range of motion. Skin: Warm, dry with normal turgor. Normal color with no rashes, no lesions, and no evidence of cellulitis. MS/ Extremity: Pulses equal, no cyanosis. Neurovascular intact. Full, normal range of motion. Neuro: Awake and alert, GCS 15, oriented to person, place, time, and situation. Cranial nerves II-XII grossly intact. Motor strength 5/5 in all extremities. Sensory grossly intact. Cerebellar exam normal. Normal gait. Psych: Awake, alert, with orientation to person, place and time. Behavior, mood, and affect are within normal limits. 00:50 Constitutional: The patient appears in no acute distress, alert, awake, anxious, uncomfortable. 04:58 : CVA tenderness, is absent, Pelvic Exam: External exam: is normal, Speculum exam: mh7 moderate bleeding, blood clots in vaginal vault, no cervicitis, os that is open, no tissue in cervix is seen, no tissue in vagina is seen, bimanual exam reveals no cervical motion tenderness, os that is open, an enlarged uterus, no uterine tenderness, no adnexa tenderness or masses bilaterally, the nurse was present for the exam, Bladder: is normal. Vital Signs: 00:00 BP 93 / 79; Pulse 125; Resp 26; Temp 97.7; Pulse Ox 100% ; dm5 00:13 BP 111 / 76; Pulse 82; Resp 22; Pulse Ox 100% on R/A; dm5 00:34 BP 110 / 54; Pulse 68; Resp 20; Pulse Ox 100% on R/A; dm5 01:00 BP 103 / 59; Pulse 55; Resp 18; Pulse Ox 100% on R/A; dm5 01:07 BP 99 / 63; Pulse 67; Resp 18; Pulse Ox 100% on R/A; dm5 01:30 BP 94 / 52; Pulse 61; Resp 16; Pulse Ox 100% on R/A; dm5 02:00 BP 120 / 73; Pulse 64; Resp 16; Pulse Ox 96% on R/A; dm5 MDM: 04:42 Differential diagnosis: ectopic , threatened Ab, inevitable Ab, complete Ab, mh7 retained Ab, septic Ab, missed Ab, postcoital bleeding, urinary tract infection. Data reviewed: vital signs, nurses notes, lab test result(s), Beta HCG: CBC, electrolytes, urinalysis, radiologic studies, ultrasound. Data interpreted: Pulse oximetry: on room air is 96 %. Interpretation: normal. Counseling: I had a detailed discussion with the patient and/or guardian regarding: the historical points, exam findings, and any diagnostic results supporting the discharge/admit diagnosis, lab results, radiology results, the need for outpatient follow up, an OB/Gyne specialist, to return to the emergency department if symptoms worsen or persist or if there are any questions or concerns that arise at home. Response to treatment: the patient's symptoms have resolved after treatment, the patient's blood pressure is in an acceptable range, mental status has returned to baseline, the patient no longer shows bradycardia, the patient is not short of breath, the patient is not tachycardic, the patient's pain is gone, the patient's temperature has normalized. 04:45 Patient medically screened. mh7 07/22 00:08 Order name: Quantitative Hcg; Complete Time: 02:41 kb 07/22 00:08 Order name: Abo/rh Typing; Complete Time: 02:06 kb 07/22 00:08 Order name: Basic Metabolic Panel; Complete Time: 02:41 kb 07/22 00:08 Order name: CBC with Diff; Complete Time: 02:06 kb 07/22 00:46 Order name: LFT's; Complete Time: 02:41 mh7 07/22 01:00 Order name: Urine --Ancillary (enter results); Complete Time: 02:06 tt3 07/22 00:45 Order name: US Transvaginal Ob mh7 07/22 01:00 Order name: Urine Dipstick--Ancillary (enter results); Complete Time: 02:06 tt3 07/22 00:08 Order name: Urine Test (obtain specimen); Complete Time: 02:23 kb 07/22 00:08 Order name: IV Saline Lock; Complete Time: 02:23 kb 07/22 00:08 Order name: Labs collected and sent; Complete Time: 02:23 kb 07/22 00:08 Order name: NPO; Complete Time: 02:23 kb 07/22 00:08 Order name: Urine Dipstick-Ancillary (obtain specimen); Complete Time: 02:23 kb Administered Medications: 00:06 Drug: NS 0.9% 1000 ml Route: IV; Rate: 1 bolus; Site: right antecubital; dm5 01:00 Follow up: IV Status: Completed infusion; IV Intake: 1000ml dm5 00:08 Drug: Zofran (Ondansetron) 4 mg Route: IVP; Site: right antecubital; dm5 00:30 Follow up: Response: No adverse reaction; No change in condition dm5 00:10 Drug: morphine 4 mg Route: IVP; Site: right antecubital; dm5 00:30 Follow up: Response: No adverse reaction dm5 01:15 Drug: morphine 2 mg Route: IVP; Site: right antecubital; dm5 01:45 Follow up: Response: No adverse reaction; Pain is decreased dm5 02:20 Drug: morphine 4 mg Route: IVP; Site: right antecubital; dm5 02:50 Follow up: Response: No adverse reaction; Pain is decreased dm5 02:21 CANCELLED (Duplicate Order): morphine 2 mg IVP once; (PAIN>8) RASS on ADMN: Combtv4, dm5 Very Agttd3, Agttd2, Rstlss1, AlertClm0, Drwsy-1, LtSdtn-2, ModSdtn-3, DpSdtn-4, UnArsble-5 x2 03:03 Drug: Potassium Effervescent Tablet 50 mEq Route: PO; dm5 03:18 Follow up: Response: No adverse reaction dm5 Disposition: 07/22/20 04:45 Discharged to Home. Impression: Inevitable , UTI. - Condition is Stable. - Discharge Instructions: Urinary Tract Infection, Adult, Pcvf-[id number], Miscarriage, Orja-fs-Damu. - Prescriptions for Keflex 500 mg Oral Capsule - take 1 capsule by ORAL route every 12 hours for 7 days; 14 capsule. Tylenol- Codeine #3 300-30 mg Oral Tablet - take 2 tablets by ORAL route every 6 months As needed; 20 tablet. - Medication Reconciliation Form, Thank You Letter, Antibiotic Education, Prescription Opioid Use form. - Follow up: Private Physician; When: 1 - 2 days; Reason: If symptoms return, Worsening of condition, Recheck today's complaints, Continuance of care, Re-evaluation by your physician. - Problem is new. - Symptoms have improved. Addendum: 07/26/2020 10:46 Addendum: Received a call from Dr. Chaudhari regarding the lab specimen sent from the [facility] patient's last visit. She indicated that no POC were found in the specimen received. The patient was informed of these findings a few minutes ago and she was advised to come to the Medical Records department and get all of her records prior to her follow-up appointment with [facility] next week. Signatures: Dispatcher [employer] Mirna Baer, JOHNNY ALVA-Ekaterina Gonzalez, IMELDA RN [id number] Juan Carlos Kilpatrick MD MD kdr Holmes, Maurice, MD MD 7 Corrections: (The following items were deleted from the chart) 07/22 02:21 02:19 morphine 2 mg IVP once; (PAIN>8) RASS on ADMN: Combtv4, Very Agttd3, Agttd2, dm5 Rstlss1, AlertClm0, Drwsy-1, LtSdtn-2, ModSdtn-3, DpSdtn-4, UnArsble-5 x2 ordered. dm5 02:21 02:19 morphine 2 mg IVP once; (PAIN>8) RASS on ADMN: Combtv4, Very Agttd3, Agttd2, dm5 Rstlss1, AlertClm0, Drwsy-1, LtSdtn-2, ModSdtn-3, DpSdtn-4, UnArsble-5 x2 given. dm5 02:21 02:20 morphine 2 mg IVP once; (PAIN>8) RASS on ADMN: Combtv4, Very Agttd3, Agttd2, dm5 Rstlss1, AlertClm0, Drwsy-1, LtSdtn-2, ModSdtn-3, DpSdtn-4, UnArsble-5 x2 ordered. dm5 05:27 04:45 07/22/2020 04:45 Discharged to Home. Impression: Inevitable ; UTI. dm5 Condition is Stable. Forms are Medication Reconciliation Form, Thank You Letter, Antibiotic Education, Prescription Opioid Use. Follow up: Private Physician; When: 1 - 2 days; Reason: If symptoms return, Worsening of condition, Recheck today's complaints, Continuance of care, Re-evaluation by your physician. Problem is new. Symptoms have improved. mh7
[2020-07-22 05:39] VITALS: BP 120/73; O2SAT 96
--- NOTE | 2020-07-22 12:41 | RAD REPORT ---
EXAM DESCRIPTION: Obstetric Ultrasound COMPARISON: None. CLINICAL HISTORY: [facility] MAIN Abd cramping, ;Vaginal bleeding TECHNIQUE: Transvaginal sonographic images of the pelvis were performed. FINDINGS: Uterus: The uterus measures 11.8 x 6.2 x 6.7 cm and is in a normal position. Endometrial Cavity: An intrauterine gestational sac is present and measures 45 mm with dependent ec hogenic contents. No definite pole or yolk sac are identified. This corresponds to an estimat ed gestational age of 9 weeks 6 days. Several small perigestational bleeds are noted. Right Adnexa: The right ovary is not visualized. Left Adnexa: The left ovary is not visualized. Peritoneal cavity: No free fluid is seen in the cul-de-sac. IMPRESSION: 1. A 45 mm intrauterine gestational sac is present without visualized pole. These findings are diagnostic of failure/miscarriage. 2. Nonvisualized ovaries. Electronically signed by: Doug Cooley MD 07/22/2020 2:50 AM CDT Due to temporary technical issues with the PACS/Fluency reporting system, reports are being signed by the in house radiologist without review as a courtesy to ensure prompt reporting. The interpreting r adiologist is fully responsible for the content of the report.
== END 2020-07-22 05:27 | disposition home or self-care (01) ==
LOC: ER 00:02
DX: O03.4 Incomplete spontaneous abortion without complication (principal); O23.41 Unspecified infection of urinary tract in pregnancy, first trimester; Z3A.09 9 weeks gestation of pregnancy
CPT/HCPCS: 96361; 85025; 80048; 36415; 86900; 81025; 86901; 80076; 88305; 84702; 81003; 76817; 96375; 96374; 99284; J2270; J7030; J2405

== ENCOUNTER 2021-02-27 10:46 | Emergency (ER) | payer OTHER ==
[2021-02-27] MEDS ORDERED: ACETAMINOPHEN 325 MG TABLET ONE (11:43)
--- NOTE | 2021-02-27 12:45 | RAD REPORT ---
EXAM DESCRIPTION: US - OB Limited - 02/27/2021 12:17 pm CLINICAL HISTORY: back pain, evaluate baby COMPARISON: Transvaginal OB dated 07/22/2020; TRANSVAG OB CERVIX ASSESSMENT dated 02/27/2021 FINDINGS: A single cephalic presenting gestation is identified. Heart rate normal. The intracranial contents and spine are grossly normal. A normal stomach bubble is noted. A nor mal fluid-filled urinary bladder seen without pelviectasis. The cord appears three-vessel. Four -chamber view of the heart is grossly unremarkable for gestational age. No gross abnormalities are id entifiable for gestational age. measurements are as follows: HL:3.7 Centimeters 23 weeks 0 day FL:3.9 Centimeters 22 week 2 day The estimated gestational age (EGA) is 22 week 4 day with an SISSY of06/29/2021. Posterior placenta without secondary signs of accreta. No previa . The cervix is closed measuring 3.3 cm . The amniotic fluid index is subjectively normal. The maternal adnexa show no worrisome findings. IMPRESSION: 1. Single, cephalic gestation with an EGA of 22 week 4 day and an SISSY of the 06/29/2021. 2. No gross abnormalities are identifiable. 3. Posterior placenta. 4. Amniotic fluid index is subjectively normal.
[2021-02-27 12:48] LABS: Urine RBC NONE SEEN /HPF (NONE SEEN)
[2021-02-27 12:49] LABS: Urine Bacteria NONE SEEN /HPF (<20)
--- NOTE | 2021-02-27 13:21 | ER ---
Nurse's Notes [facility] Name: Kimmy Archer Age: 26 yrs Sex: Female : 1995 Arrival Date: 02/27/2021 Time: 10:49 Bed 20 Private MD: Diagnosis: Muscle spasm of back;Radiculopathy, lumbar region Presentation: 02/27 10:55 Chief complaint:. Chief complaint: Patient states: " I believe I have a pinched nerve tw5 in my back, I don't know what I did that could have caused it, I literally feel like I cannot walk" is concerned that the baby could be pressing up again a nerve. Coronavirus screen: Vaccine status: Patient reports being unvaccinated. Ebola Screen: Patient negative for fever greater than or equal to 101.5 degrees Fahrenheit, and additional compatible Ebola Virus Disease symptoms Patient denies exposure to infectious person. No symptoms or risks identified at this time. Initial Sepsis Screen: Does the patient meet any 2 criteria? No. Patient's initial sepsis screen is negative. Does the patient have a suspected source of infection? No. Patient's initial sepsis screen is negative. Risk Assessment: Do you want to hurt yourself or someone else? Patient reports no desire to harm self or others. Onset of symptoms was February 25, 2021. 10:55 Method Of Arrival: Wheelchair tw5 10:55 Acuity: LILIANA 3 tw5 Triage Assessment: 10:59 General: Appears uncomfortable, Behavior is calm. Pain: Pain currently is 9 out of 10 tw5 on a pain scale. Musculoskeletal: Range of motion: intact in all extremities. 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 - Social history:: Smoking status: Patient/guardian denies using tobacco, Stopped _ months ago 1. - Family history:: not pertinent. - Hospitalizations: : No recent hospitalization is reported. Screenin:09 Abuse screen: Denies threats or abuse. Denies injuries from another. Nutritional ch5 screening: No deficits noted. Tuberculosis screening: No symptoms or risk factors identified. Fall Risk None identified. Assessment: 11:09 Reassessment: Difficulty getting into bed due to back pain. denies injury. 5 Vital Signs: 10:55 BP 104 / 66; Pulse 76; Resp 14; Temp 98.0(O); Pulse Ox 100% on R/A; Weight 66.68 kg; tw5 Height 5 ft. 7 in. (170.18 cm); Pain 8/10; 13:19 BP 99 / 68; Pulse 77; Resp 15; Pulse Ox 100% on R/A; ch5 10:55 Body Mass Index 23.02 (66.68 kg, 170.18 cm) tw5 ED Course: 10:49 Patient arrived in ED. as 10:49 Rene Chahal MD is Attending Physician. rn 10:59 Triage completed. tw5 10:59 Arm band placed on right wrist. tw5 11:08 Endy Gee, RN is Primary Nurse. 5 11:09 Patient has correct armband on for positive identification. Bed in low position. Call [facility] light in reach. 11:09 No provider procedures requiring assistance completed. 5 13:23 TRANSVAG OB CERVIX ASSESSMENT In Process Unspecified. EDVT 13:27 Patient did not have IV access during this emergency room visit. 5 Administered Medications: 11:19 Drug: Tylenol 650 mg Route: PO; 5 Outcome: 13:20 Discharge ordered by . rn 13:27 Discharged to home ambulatory. 5 13:27 Condition: stable 13:27 Discharge instructions given to patient, Instructed on discharge instructions, follow up and referral plans. Demonstrated understanding of instructions, follow-up care. 13:28 Patient left the ED. 5 Signatures: Dispatcher [employer] EDMS Pati Stephenson Roman, MD MD rn Heath, Christopher, RN RN 5 Delaney Castro [facility]
--- NOTE | 2021-02-27 13:21 | EDPHYS ---
Physician Documentation [facility] Name: Kimmy Archer Age: 26 yrs Sex: Female : 1995 Arrival Date: 02/27/2021 Time: 10:49 Bed 20 Private MD: ED Physician Rene Chahal HPI: 02/27 12:48 This 26 yrs old Female presents to ER via Wheelchair with complaints of Back rn Pain. 12:48 The patient presents with pain that is acute. The symptoms are located in the low back. rn Onset: The symptoms/episode began/occurred yesterday. The pain radiates to the left leg. Associated signs and symptoms: Pertinent negatives: abdominal pain, chest pain, dysuria, fever, hematuria, incontinence, nausea, numbness, tingling, urinary retention, vomiting, weakness. The problem was sustained without known cause. Modifying factors: The patient symptoms are alleviated by remaining still, the patient symptoms are aggravated by any movement, bending, lifting. Severity of symptoms: At their worst the symptoms were moderate, in the emergency department the symptoms are unchanged. The patient has not experienced similar symptoms in the past. The patient has not recently seen a physician. Patient reports low back pain that began yesterday, no trauma, radiates to the left leg, worse with movement. Reports 23 weeks but denies any sort of abdominal pain/pelvic pain/vaginal bleeding/vaginal discharge/leakage of fluid. Just saw her OB and states baby is doing okay. Denies any fever. Reports feels like back is in spasm. 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 - Social history:: Smoking status: Patient/guardian denies using tobacco, Stopped _ months ago 1. - Family history:: not pertinent. - Hospitalizations: : No recent hospitalization is reported. ROS: 12:48 Constitutional: Negative for fever, chills, and weight loss, Eyes: Negative for injury, rn pain, redness, and discharge, Neck: Negative for injury, pain, and swelling, Cardiovascular: Negative for chest pain, palpitations, and edema, Respiratory: Negative for shortness of breath, cough, wheezing, and pleuritic chest pain, Abdomen/GI: Negative for abdominal pain, nausea, vomiting, diarrhea, and constipation, Back: Positive for back pain : Negative for injury, bleeding, discharge, and swelling, MS/Extremity: Negative for injury and deformity, Skin: Negative for injury, rash, and discoloration, Neuro: Negative for headache, weakness, numbness, tingling, and seizure. Exam: 12:48 Constitutional: This is a well developed, well nourished patient who is awake, alert, rn appears in pain but able to stand and get into bed Head/Face: Normocephalic, atraumatic. Eyes: Periorbital areas with no swelling, redness, or edema. Cardiovascular: Regular rate and rhythm. No pulse deficits. Respiratory: No increased work of breathing, no retractions or nasal flaring. Abdomen/GI: Soft, non-tender, gravid uterus Back: No spinal tenderness. No costovertebral tenderness. Positive straight leg and cross straight leg test. Skin: Warm, dry MS/ Extremity: Pulses equal, no cyanosis. Neurovascular intact. Full, normal range of motion. Equal circumference. Neuro: Awake and alert, GCS 15 Vital Signs: 10:55 BP 104 / 66; Pulse 76; Resp 14; Temp 98.0(O); Pulse Ox 100% on R/A; Weight 66.68 kg; tw5 Height 5 ft. 7 in. (170.18 cm); Pain 8/10; 13:19 BP 99 / 68; Pulse 77; Resp 15; Pulse Ox 100% on R/A; ch5 10:55 Body Mass Index 23.02 (66.68 kg, 170.18 cm) tw5 MDM: 11:02 Patient medically screened. rn 13:17 Differential diagnosis: arthritis, Osteoarthritis sprain, Muscle spasm, radiculopathy, rn strain. Data reviewed: vital signs, nurses notes, lab test result(s), urinalysis, radiologic studies, ultrasound, and as a result, I will discharge patient. Counseling: I had a detailed discussion with the patient and/or guardian regarding: the historical points, exam findings, and any diagnostic results supporting the discharge/admit diagnosis, lab results, radiology results, the need for outpatient follow up, to return to the emergency department if symptoms worsen or persist or if there are any questions or concerns that arise at home. Response to treatment: the patient's symptoms have mildly improved after treatment, and as a result, I will discharge patient. Special discussion: I discussed with the patient/guardian in detail that at this point there is no indication for admission to the hospital. It is understood, however, that if the symptoms persist or worsen the patient needs to return immediately for re-evaluation. ED course: Patient feels better with Tylenol, sleeping comfortably. Ultrasound shows no acute problems with baby and closed cervix. Urine negative for infection. Will DC home as muscle spasm of back and radiculopathy. Tylenol since and conservative treatment for now.. 02/27 11:13 Order name: Urine Microscopic Only rn 02/27 12:49 Order name: Urine Microscopic Only; Complete Time: 13:14 EDCA 02/27 11:13 Order name: US OB Limited rn 02/27 13:18 Order name: Urine Dipstick-Ancillary EDCA 02/27 13:18 Order name: Urine Dipstick-Ancillary EDCA 02/27 13:18 Order name: Urine --Ancillary EDCA 02/27 11:13 Order name: Urine Dipstick-Ancillary (obtain specimen); Complete Time: 11:42 rn 02/27 12:46 Order name: US; Complete Time: 13:14 EDCA 02/27 13:23 Order name: TRANSVAG OB CERVIX ASSESSMENT EDMS Administered Medications: 11:19 Drug: Tylenol 650 mg Route: PO; ch5 Disposition Summary: 02/27/21 13:20 Discharge Ordered Location: Home rn Problem: new rn Symptoms: have improved rn Condition: Stable rn Diagnosis - Muscle spasm of back rn - Radiculopathy, lumbar region rn Followup: rn - With: Private Physician - When: As needed - Reason: Recheck today's complaints, Re-evaluation by your physician Discharge Instructions: - Discharge Summary Sheet rn - Lumbosacral Radiculopathy rn - Muscle Cramps and Spasms rn - Back Exercises rn Forms: - Medication Reconciliation Form rn - Thank You Letter rn - Antibiotic learning and development consultant - Prescription Opioid Use rn Signatures: Dispatcher [employer] EDCA Rene Chahal MD MD rn Heath, Christopher, RN RN 5 Delaney Castro 5
[2021-02-27 13:52] LABS: Urine Blood NEGATIVE (Negative); Urine Glucose NEGATIVE (Negative); Urine Protein NEGATIVE (Negative); Urine Specific Gravity 1.015 (1.005-1.030); Urine Specific Gravity/Preg 1.015 (1.005-1.030)
[2021-02-27 16:27] VITALS: TEMP 98; O2SAT 100
[2021-02-27 16:28] VITALS: BP 99/68
--- NOTE | 2021-03-09 09:44 | RAD REPORT ---
CLINICAL HISTORY: back pain, evaluate baby COMPARISON: Transvaginal OB dated 07/22/2020; TRANSVAG OB CERVIX ASSESSMENT dated 02/27/2021 FINDINGS: A single cephalic presenting gestation is identified. Heart rate normal. The intracranial contents and spine are grossly normal. A normal stomach bubble is noted. A normal fluid-filled urinary bladder seen without pelviectasis. The cord appears three-vessel. Four-chamber view of the heart is grossly unremarkable for gestational age. No gross abnormalities are identifiable for gestational age. measurements are as follows: HL:3.7 Centimeters 23 weeks 0 day FL:3.9 Centimeters 22 week 2 day The estimated gestational age (EGA) is 22 week 4 day with an SISSY of06/29/2021. Posterior placenta without secondary signs of accreta. No previa . The cervix is closed measuring 3.3 cm . The amniotic fluid index is subjectively normal. The maternal adnexa show no worrisome findings. IMPRESSION: 1. Single, cephalic gestation with an EGA of 22 week 4 day and an SISSY of the 06/29/2021. 2. No gross abnormalities are identifiable. 3. Posterior placenta. 4. Amniotic fluid index is subjectively normal.
== END 2021-02-27 13:28 | disposition home or self-care (01) ==
LOC: ER 10:46
DX: O26.892 Other specified pregnancy related conditions, second trimester (principal); M54.16 Radiculopathy, lumbar region; Z3A.23 23 weeks gestation of pregnancy
CPT/HCPCS: 76815; 76817; 81003; 81015; 81025; 99283

== ENCOUNTER 2024-04-16 21:20 | Emergency (ER) | payer OTHER ==
--- OUTSIDE RECORDS SUMMARY | 2024-04-16 21:23 | XMS REPORT | Continuity of Care Document ---
Author Name Unknown Address [address] [facility] [address] [place] [address] [facility] thconnect Address 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 Name Role Phone Nicola SLATER, Zuly Primary Care Physician QUENTIN PRETTY Attending Clinician Unavailable HANNAH TEMPLETON Attending Clinician Unavail able Visit, Shauna Nurse Attending Clinician Unava ilcarolyn Templeton Hannah TYLER Attending Clinician + Doctor Unassigned, [place] Attending Clinician U simaailDean Reese Attending Clinician + [phone] Quentin Pretty MD Attending Clinician [phone] DEAN EDWARDS Attending Clinician Unavailab Doyle LUI, Jonh Stack Attending Clinician [phone] Lab, Shauna Attending Clinician Unavailable Vi Robles Attending Clinician + Eloina Hensley Attending Clinician [phone] ELOINA BLACK Attending Clinician Unavailabl VI Pablo Attending Clinician Unavail able Ultrasound, Daisy Attending Clinician Alexandra Alexandre MD, Crescencio Suazo Attending Clinician + Provider, Shauna Temp Attending Clinician Kim Regino Lomeli MD Attending Clinician [phone] Quentin Grimaldo Attending Clinician ERIC PATEL Attending Clinician Unavailab ELVIN Mcdonnell Attending Clinician Unavailable Lab, Adc Fam Pob I Attending Clinician Unavailab Deepa Bateman Attending Clinician [phone] DEEPA SPENCE Attending Clinician Unavailable Trimester, [facility]1st Attending Clinician Unavailable Elvin Green MD Attending Clinician [phone] Willam Jensen DO Attending Clinician [phone] Armin Alberto MD Attending Clinician [phone] QUENTIN PRETTY Admitting Clinician Unavailable Quentin Pretty MD Admitting Clinician [phone] Armin Alberto MD Admitting Clinician [phone] Payers Payer Name Policy Type Policy Number Effective Date Expirati on Date Source [employer] MEDICA[employer] [id number] 2019 00:00:00 [facility] [id number] 2020 00:00:00 Problems Condition Name Condition Details Condition Category Status Onset Date Resolution Date Last Treatment Date Treating Clinician Comments Source Other general counseling and advice for contracept diane management Other general counseling and advice for contracept diane management Disease Active 3-30 00:00: 00 [facility] ASCUS of cervix with negative high risk HPV ASCUS of cervix with negative high risk HPV Disease Active 4-12 00:00: 00 [facility] Tobacco use disorder Tobacco use disorder Disease Active 3-24 00:00: 00 [facility] Allergies, Adverse Reactions, Alerts Allergy Name Allergy Type Status Severity Reaction(s) Onset Date Inactive Date Treating Clinician Comments Source NO KNOWN ALLERGIE S Drug Class Active [facility] Social History Social Habit Start Date Stop Date Quantity Comments Source History SDOH Alcohol Std Drinks [facility] History SDOH Alcohol Binge [facility] History SDOH Alcohol Comment [facility] Exposure to SARS-CoV-2 (event) 2021-08-25 00:00:00 2021-09-04 13:28:00 Not sure [facility] Tobacco Comment 2021-02-07 00:00:00 2021-02-07 00:00:00 3 packs per year [facility] History of Social function 2020-11-15 00:00:00 2020-11-15 00:00:00 [facility] Cigarettes smoked current (pack per day) - Reported 2019-11-17 00:00:00 2019-11-17 00:00:00 [facility] Cigarette pack-years 2019-11-17 00:00:00 2019-11-17 00:00:00 [facility] Tobacco use and exposure 2019-11-17 00:00:00 2019-11-17 00:00:00 Smokeless tobacco non-user [facility] Alcohol intake 2019-11-17 00:00:00 2019-11-17 00:00:00 Current non-drinker of alcohol (finding) [facility] History SDOH Alcohol Frequency 2019-11-17 00:00:00 2019-11-17 00:00:00 1 [facility] History of tobacco use 2019-03-05 00:00:00 Cigarette Smoker [facility] Sex Assigned At 1995 00:00:00 1995 00:00:00 [facility] Smoking Status Start Date Stop Date Source Smokes tobacco daily 2019-11-17 00:00:00 [facility] Medications Ordered Medication Name Filled Medication Name Start Date Stop Date Current Medication? Ordering Clinician Indication Dosage Frequency Signature (SIG) Comments Components Source Suboxone 12 mg-3 mg sublingual film 08-03 00:00: 00 Yes 1mg Anirudh F Ramana Suboxone 8 mg-2 mg sublingual film 08-03 00:00: 00 Yes 1mg Anirudh F Ramana Suboxone 12 mg-3 mg sublingual film - 00:00: 00 Yes 1mg Anirudh F Ramana Suboxone 8 mg-2 mg sublingual film - 00:00: 00 Yes 1mg Anirudh F Ramana Suboxone 12 mg-3 mg sublingual film 2- 00:00: 00 Yes mg Anirudh F Ramana Suboxone 8 mg-2 mg sublingual film 2-08 00:00: 00 Yes mg Anirudh Boles TAKE ONE FILM SUBLINGUAL DAILY 2022-05 2-14 00:00: 00 08-21 00:00 :00 No 123 Anirudh Boles BUPREN/NALO X MIS 12-3MG 2022-05 1-17 00:00: 00 Yes Anirudh Boles BUPREN/NALO X MIS 8-2MG 2022-05-17 00:00: 00 Yes Anirudh Boles 1 STRIP SL BID 2022-05 0-20 00:00: 00 08-21 00:00 :00 No 82 Anirudh Boles TAKE ONE FILM SUBLINGUAL DAILY 2022-05 0-20 00:00: 00 08-21 00:00 :00 No 123 Anirudh Boles TAKE ONE (1) FILM BY MOUTH. 01-31 00:00: 00 Yes Anirudh Boles TAKE 1 TABLET TWICE DAILY NEEDED. 9- 00:00: 00 08-21 00:00 :00 No 50 Anirudh Boles 1 SPRAY INTO NOSTRIL FOR OPIOID OVERDOSE. MAY REPEAT DOSE IN ALTERNATE NOSTRILS Q2-3 MIN UNTIL PT RESPONSIVE OR EMS ARRIVE 9- 00:00: 00 08-21 00:00 :00 No 401 Anirudh Boles SUBOXONE MIS 8-2MG 5-26 00:00: 00 Yes Anirudh Boles MEDROXYPR AC INJ /ML 5-05 00:00: 00 Yes Anirudh Boles TAKE 1 CAPSULE TWICE DAILY. 5-05 00:00: 00 08-21 00:00 :00 No 500 Anirudh Boles SUBOXONE MIS 8-2MG 5- 00:00: 00 Yes Anirudh Boles TAKE 1 TABLET EVERY MORNING NEEDED. - 00:00: 00 08-21 00:00 :00 No 10 Anirudh Boles APPLY SPARINGLY TO AFFECTED AREA(S) TWICE DAILY - 00:00: 00 08-21 00:00 :00 No 2 Anirudh Hugo Boles APPLY SPARINGLY AND MASSAGE IN TWICE DAILY. - 00:00: 00 08-21 00:00 :00 No 1 Anirudh Boles SUBOXONE MIS 8-2MG 3-06 00:00: 00 Yes Anirudh Boles METRONIDAZO LE 500MG TABLETS 2-08 00:00: 00 Yes Anirudh Boles MEDROXYPROG ESTERONE 150MG/ML VIAL 2- 00:00: 00 Yes Anirudh Boles MEDROXYPROG ESTERONE 150MG/ML VIAL 2021-05 1- 00:00: 00 Yes Anirudh Boles SUBOXONE MIS 8-2MG 6- 00:00: 00 Yes Anirudh Boles SUBOXONE MIS 8-2MG 09-28 00:00: 00 Yes Anirudh Boles medroxyPROG ESTERone (DEPO-PROVE RA) injection 150 mg - 19:45: 00 05-14 20:44 :00 No [id number] 150mg [facility] ampicillin 500 mg capsule 08-03 00:00: 00 08-14 04:59 :00 No [id number] 500mg Take 1 capsule by mouth 4 (four) times daily for [address] [facility] vitamin w/FA tablet 06-04 00:00: 00 Yes [id number] 09 1{tbl} Take 1 tablet by mouth daily. [facility] vitamin w/FA tablet 06-04 00:00: 00 Yes [id number] 09 1{tbl} Take 1 tablet by mouth daily. [facility] Immunizations Ordered Immunization Name Filled Immunization Name Date Status Comments Source HPV9 HPV9 2021-08-01 00:00:00 Completed Anirudh Boles HPV9 2021-08-01 00:00:00 Completed [facility] HPV9 2021-08-01 00:00:00 Completed [facility] HPV9 2021-08-01 00:00:00 Completed [facility] HPV9 2021-08-01 00:00:00 Completed [facility] HPV9 2021-08-01 00:00:00 Completed [facility] Tdap Tdap 2021-04-26 00:00:00 Completed Anirudh Boles TDAP 2021-04-26 00:00:00 Completed [facility] TDAP 2021-04-26 00:00:00 Completed [facility] TDAP 2021-04-26 00:00:00 Completed [facility] TDAP 2021-04-26 00:00:00 Completed [facility] TDAP 2021-04-26 00:00:00 Completed [facility] TDAP (ADACEL) VACCINE 2019-07-22 00:00:00 Completed [facility] TDAP (ADACEL) VACCINE 2019-07-22 00:00:00 Completed [facility] TDAP (ADACEL) VACCINE 2019-07-22 00:00:00 Completed [facility] TDAP (ADACEL) VACCINE 2019-07-22 00:00:00 Completed [facility] TDAP (ADACEL) VACCINE 2019-07-22 00:00:00 Completed [facility] HPV9 2017-11-03 00:00:00 Completed [facility] HPV9 2017-11-03 00:00:00 Completed [facility] HPV9 2017-11-03 00:00:00 Completed [facility] HPV9 2017-11-03 00:00:00 Completed [facility] HPV9 2017-11-03 00:00:00 Completed [facility] TDAP 2017-07-01 00:00:00 Completed [facility] TDAP 2017-07-01 00:00:00 Completed [facility] TDAP 2017-07-01 00:00:00 Completed [facility] TDAP 2017-07-01 00:00:00 Completed [facility] TDAP 2017-07-01 00:00:00 Completed [facility] Influenza Virus Vaccine Quad IM 3+ YRS 2017-02-06 00:00:00 Completed [facility] Influenza Virus Vaccine Quad IM 3+ YRS 2017-02-06 00:00:00 Completed [facility] Influenza Virus Vaccine Quad IM 3+ YRS 2017-02-06 00:00:00 Completed [facility] Influenza Virus Vaccine Quad IM 3+ YRS 2017-02-06 00:00:00 Completed [facility] Influenza Virus Vaccine Quad IM 3+ YRS 2017-02-06 00:00:00 Completed [facility] TDAP (ADACEL) VACCINE 2015-09-03 00:00:00 Completed [facility] TDAP (ADACEL) VACCINE 2015-09-03 00:00:00 Completed [facility] TDAP (ADACEL) VACCINE 2015-09-03 00:00:00 Completed [facility] TDAP (ADACEL) VACCINE 2015-09-03 00:00:00 Completed [facility] TDAP (ADACEL) VACCINE 2015-09-03 00:00:00 Completed [facility] TDAP (ADACEL) VACCINE Unknown Completed [facility] Influenza Virus Vaccine Quad IM 3+ YRS Unknown Completed [facility] HPV9 Unknown Completed [facility] TDAP (ADACEL) VACCINE Unknown Completed [facility] Influenza Virus Vaccine Quad IM 3+ YRS Unknown Completed [facility] HPV9 Unknown Completed [facility] TDAP (ADACEL) VACCINE Unknown Completed [facility] Influenza Virus Vaccine Quad IM 3+ YRS Unknown Completed [facility] HPV9 Unknown Completed [facility] Vital Signs Vital Name Observation Time Observation Value Comments S ource Systolic blood pressure 2021-11-27 18:03:00 112 mm[Hg] [facility] Diastolic blood pressure 2021-11-27 18:03:00 64 mm[Hg] [facility] Heart rate 2021-11-27 18:03:00 81 /min [facility] Body temperature 2021-11-27 18:03:00 36.67 Callie [facility] Respiratory rate 2021-11-27 18:03:00 16 /min [facility] Body height 2021-11-27 18:03:00 170.2 cm [facility] Body weight 2021-11-27 18:03:00 72.439 kg [facility] BMI 2021-11-27 18:03:00 25.01 kg/m2 [facility] Systolic blood pressure 2021-09-04 18:29:00 124 mm[Hg] [facility] Diastolic blood pressure 2021-09-04 18:29:00 71 mm[Hg] [facility] Heart rate 2021-09-04 18:29:00 75 /min [facility] Body temperature 2021-09-04 18:29:00 37.06 Callie [facility] Respiratory rate 2021-09-04 18:29:00 16 /min [facility] Body height 2021-09-04 18:29:00 170.2 cm [facility] Body weight 2021-09-04 18:29:00 68.811 kg [facility] BMI 2021-09-04 18:29:00 23.76 kg/m2 [facility] BP Systolic 2023-08-22 13:30:00 120 mm[Hg] Step hen F Ramana BP Diastolic 2023-08-22 13:30:00 82 mm[Hg] Thierry phen F Ramana Weight Measured 2023-08-22 13:30:00 179.00 pounds Anirudh Hugo Boles Height Measured 2023-08-22 13:30:00 68.00 inches Anirudh F Ramana Body Temperature 2023-08-22 13:30:00 97.90 degrees Anirudh F Ramana Heart Rate 2023-08-22 13:30:00 77.00 /min Marlene en F Ramana Respiratory Rate 2023-08-22 13:30:00 16.00 /min Anirudh F Ramana BP Systolic 2023-08-04 17:16:00 123 mm[Hg] Step hen F Ramana BP Diastolic 2023-08-04 17:16:00 75 mm[Hg] Thierry phen F Ramana Weight Measured 2023-08-04 17:16:00 179.00 pounds Anirudh F Ramana Height Measured 2023-08-04 17:16:00 68.00 inches Anirudh F Ramana Body Temperature 2023-08-04 17:16:00 98.20 degrees Anirudh F Ramana Heart Rate 2023-08-04 17:16:00 65.00 /min Marlene en F Ramana Respiratory Rate 2023-08-04 17:16:00 18.00 /min Anirudh F Ramana BP Systolic 2023-07-09 13:18:00 129 mm[Hg] Step hen F Ramana BP Diastolic 2023-07-09 13:18:00 82 mm[Hg] Thierry phen F Ramana Weight Measured 2023-07-09 13:18:00 180.00 pounds Anirudh F Ramana Height Measured 2023-07-09 13:18:00 68.00 inches Anirudh F Ramana Body Temperature 2023-07-09 13:18:00 98.30 degrees Anirudh F Ramana Heart Rate 2023-07-09 13:18:00 83.00 /min Marlene en F Ramana Respiratory Rate 2023-07-09 13:18:00 16.00 /min Anirudh F Ramana BP Systolic 2023-06-12 15:05:00 127 mm[Hg] Step hen F Ramana BP Diastolic 2023-06-12 15:05:00 78 mm[Hg] Thierry phen F Ramana Weight Measured 2023-06-12 15:05:00 182.20 pounds Anirudh F Ramana Height Measured 2023-06-12 15:05:00 68.00 inches Anirudh F Ramana Body Temperature 2023-06-12 15:05:00 98.10 degrees Anirudh F Ramana Heart Rate 2023-06-12 15:05:00 78.00 /min Marlene en F Ramana Respiratory Rate 2023-06-12 15:05:00 19.00 /min Anirudh F Ramana BP Systolic 2023-05-14 14:28:00 126 mm[Hg] Step hen F Ramana BP Diastolic 2023-05-14 14:28:00 77 mm[Hg] Thierry phen F Ramana Weight Measured 2023-05-14 14:28:00 183.40 pounds Anirudh F Ramana Height Measured 2023-05-14 14:28:00 68.00 inches Anirudh F Ramana Body Temperature 2023-05-14 14:28:00 98.20 degrees Anirudh F Ramana Heart Rate 2023-05-14 14:28:00 80.00 /min Marlene en F Ramana Respiratory Rate 2023-05-14 14:28:00 19.00 /min Anirudh F Ramana BP Systolic 2023-04-16 13:13:00 110 mm[Hg] Step hen F Ramana BP Diastolic 2023-04-16 13:13:00 70 mm[Hg] Thierry phen F Ramana Weight Measured 2023-04-16 13:13:00 184.00 pounds Anirudh F Rmaana Height Measured 2023-04-16 13:13:00 68.00 inches Anirudh F Ramana Body Temperature 2023-04-16 13:13:00 97.10 degrees Anirudh F Ramana Heart Rate 2023-04-16 13:13:00 70.00 /min Marlene en F Ramana Respiratory Rate 2023-04-16 13:13:00 18.00 /min Anirudh F Ramana BP Diastolic 2023-03-21 10:21:00 70 mm[Hg] Thierry phen F Ramana Weight Measured 2023-03-21 10:21:00 181.00 pounds Anirudh F Ramana Height Measured 2023-03-21 10:21:00 68.00 inches Anirudh F Ramana Body Temperature 2023-03-21 10:21:00 98.20 degrees Anirudh F Ramana Heart Rate 2023-03-21 10:21:00 85.00 /min Marlene en F Ramana Respiratory Rate 2023-03-21 10:21:00 19.00 /min Anirudh F Ramana BP Systolic 2023-03-21 10:21:00 113 mm[Hg] Step hen F Ramana BP Systolic 2023-02-21 10:29:00 128 mm[Hg] Step hen F Ramana BP Diastolic 2023-02-21 10:29:00 72 mm[Hg] Thierry phen F Ramana Weight Measured 2023-02-21 10:29:00 179.40 pounds Anirudh F Ramana Height Measured 2023-02-21 10:29:00 68.00 inches Anirudh F Ramana Body Temperature 2023-02-21 10:29:00 98.30 degrees Anirudh F Ramana Heart Rate 2023-02-21 10:29:00 58.00 /min Marlene en F Ramana Respiratory Rate 2023-02-21 10:29:00 Anirudh F Ramana BP Systolic 2023-01-31 17:21:00 111 mm[Hg] Step hen F Ramana BP Diastolic 2023-01-31 17:21:00 69 mm[Hg] Thierry phen F Ramana Weight Measured 2023-01-31 17:21:00 178.80 pounds Anirudh F Ramana Height Measured 2023-01-31 17:21:00 68.00 inches Anirudh F Ramana Body Temperature 2023-01-31 17:21:00 98.30 degrees Anirudh F Ramana Heart Rate 2023-01-31 17:21:00 65.00 /min Marlene en Hugo Boles Respiratory Rate 2023-01-31 17:21:00 Anirudh Boles BP Systolic 2023-01-15 14:14:00 130 mm[Hg] Ryan Boles BP Diastolic 2023-01-15 14:14:00 83 mm[Hg] Thierry Boles Weight Measured 2023-01-15 14:14:00 180.00 pounds Anirudh Boles Height Measured 2023-01-15 14:14:00 68.00 inches Anirudh Boles Body Temperature 2023-01-15 14:14:00 98.10 degrees Anirudh Boles Heart Rate 2023-01-15 14:14:00 56.00 /min Marlene Boles Respiratory Rate 2023-01-15 14:14:00 Anirudh Boles Encounters Start Date/Time End Date/Time Encounter Type Admission Type Attending [facility] Facility Care Department Encounter ID Source 2021-07-06 16:01:57 Outpatient QUENTIN RAMIRES [facility] DIRECTOR OF RESPIRATORY THERAPY [id number] [facility] 2021-03-04 14:10:24 Emergency [facility] [id number] [facility] 2021-03-01 19:41:40 Outpatient [facility] [id number] [facility] 2024-01-13 14:08:23 2024-01-13 14:08:23 Outpatient SFA SFA [id number] Anirudh Boles 2023-10-23 15:31:32 2023-10-23 15:31:32 Outpatient SFA SFA [id number] Anirudh Boles 2023-09-27 12:28:20 2023-09-27 12:28:20 Outpatient SFA SFA [id number] Anirudh Boles 2023-08-22 13:28:58 2023-08-22 13:28:58 Outpatient SFA SFA [id number] Anirudh Boles 2023-08-22 00:00:00 2023-08-22 00:00:00 Outpatient Visit SFA [id number] Anirudh Boles 2023-08-04 17:16:09 2023-08-04 17:16:09 Outpatient SFA SFA [id number] Anirudh Boles 2023-07-09 13:08:59 2023-07-09 13:08:59 Outpatient SFA SFA [id number] Anirudh Boles 2023-06-12 15:00:57 2023-06-12 15:00:57 Outpatient SFA SFA [id number] Anirudh Boles 2023-05-14 14:23:55 2023-05-14 14:23:55 Outpatient SFA SFA [id number] Anirudh Boles 2023-04-16 14:22:55 2023-04-16 14:22:55 Outpatient SFA SFA [id number] Anirudh Boles 2023-03-21 10:18:15 2023-03-21 10:18:15 Outpatient SFA SFA [id number] Anirudh Boles 2023-02-21 10:21:33 2023-02-21 10:21:33 Outpatient SFA SFA [id number] Anirudh Boles 2023-01-31 17:16:40 2023-01-31 17:16:40 Outpatient SFA SFA [id number] Anirudh Boles 2023-01-15 14:10:23 2023-01-15 14:10:23 Outpatient SFA SFA [id number] Anirudh Boles 2022-09-06 16:08:13 2022-09-06 16:08:13 Outpatient SFA SFA [id number] Anirudh Boles 2022-08-23 15:36:28 2022-08-23 15:36:28 Outpatient SFA SFA [id number] Anirudh Boles 2022-03-15 13:30:00 2022-03-15 13:30:00 Outpatient R HANNAH TEMPLETON [facility] [id number] [facility] 2022-02-19 13:00:00 2022-02-19 13:00:00 Outpatient R HANNAH TEMPLETON [facility] [id number] [facility] 2021-12-03 13:00:00 2021-12-03 13:00:00 Outpatient R HANNAH TEMPLETON [facility] [id number] [facility] 2021-11-27 13:00:00 2021-11-27 13:04:09 Nurse Visit Visit, Hannah Burton NEJULIANN MACHINE SETTER [facility] & CHILD [facility] [id number] [id number] [facility] 2021-11-27 13:00:00 2021-11-27 13:00:00 Outpatient R HANNAH TEMPLETON [facility] [id number] [facility] 2021-11-01 10:30:00 2021-11-01 10:30:00 Outpatient R [facility] [id number] [facility] 2021-11-01 10:30:00 2021-11-01 10:30:00 Outpatient R HANNAH TEMPLETON [facility] [id number] [facility] 2021-10-24 10:30:00 2021-10-24 10:30:00 Outpatient R [facility] [id number] [facility] 2021-09-04 13:30:00 2021-09-04 13:36:35 Outpatient R HANNAH TEMPLETON [facility] [id number] [facility] 2021-09-04 13:30:00 2021-09-04 13:36:35 Nurse Visit Visit, Hannah Burton [facility] MACHINE SETTER [facility] & CHILD [facility] .[id number] [id number] [id number] [facility] 2021-08-31 13:00:00 2021-08-31 13:00:00 Outpatient R HANNAH TEMPLETON [facility] [id number] [facility] 2021-08-30 00:00:00 2021-08-30 00:00:00 Telephone Hannah Templeton [facility] MACHINE SETTER [facility] & CHILD [facility] [id number] [id number] [id number] [facility] 2021-08-06 00:00:00 2021-08-06 00:00:00 Telephone Hannah Templeton [facility] MACHINE SETTER [facility] & CHILD [facility] [id number] [id number] [id number] [facility] 2021-08-03 00:00:00 2021-08-03 00:00:00 Telephone Hannah Templeton [facility] MACHINE SETTER [facility] & CHILD [facility] [id number] [id number] [id number] [facility] 2021-08-01 13:00:00 2021-08-01 13:52:05 Office Visit AlisamonyHannah Tess [facility] MACHINE SETTER [facility] CHILD [facility] [id number] [id number] [id number] [facility] 2021-08-01 13:00:00 2021-08-01 13:52:05 Outpatient R HANNAH TEMPLETON [facility] [id number] [facility] 2021-08-01 13:00:00 2021-08-01 13:52:05 Outpatient R HANNAH TEMPLETON [facility] [id number] [facility] 2021-08-01 13:00:00 2021-08-01 13:00:00 Outpatient R HANNAH TEMPLETON [facility] [id number] [facility] 2021-08-01 00:00:00 2021-08-01 00:00:00 Orders Only Doctor Unassigned, [place] [facility] 1..114 350.1.13.10 [id number] [facility] 2021-07-31 00:00:00 2021-07-31 00:00:00 Telephone Dean Edwards Ad [facility] MACHINE SETTER [facility] & CHILD [facility] 1..114 [id number] [id number] [facility] 2021-07-24 13:30:00 2021-07-24 13:30:00 Outpatient R QUENTIN PRETTY [facility] [id number] [facility] 2021-07-24 13:30:00 2021-07-24 13:30:00 Outpatient R QUENTIN PRETTY [facility] [id number] [facility] 2021-07-12 00:00:00 2021-07-12 00:00:00 Patient Secure Msg Doctor Unassigned, [place] [facility] 1..114 350.1.13.10 [id number] [facility] 2021-07-11 09:30:00 2021-07-11 09:30:00 Outpatient R [facility] [id number] [facility] 2021-07-05 13:30:00 2021-07-05 14:57:22 Outpatient R QUENTIN PRETTY [facility] [id number] [facility] 2021-07-05 13:30:00 2021-07-05 14:57:22 Office Visit Quentin Pretty [facility] 1..114 350.1.13.10 [id number] [facility] 2021-07-05 13:30:00 2021-07-05 13:30:00 Outpatient R QUENTIN PRETTY [facility] [id number] [facility] 2021-06-06 00:00:00 2021-06-06 00:00:00 Telephone EdwardsDean [facility] MACHINE SETTER [facility] & CHILD [facility] 1.840.114 350.1.13.10 [id number] [facility] 2021-06-02 14:04:00 2021-06-04 14:20:00 Inpatient P QUENTIN PRETTY [facility] [place] [id number] [facility] 2021-06-02 14:04:00 2021-06-04 14:20:00 Hospital Encounter Quentin Pretty [facility] 1.840.114 350.1.13.10 4.2.7.2.[id number] [facility] 2021-06-04 10:15:00 2021-06-04 10:15:00 Outpatient R EDWARDSDEAN [facility] [id number] [facility] 2021-06-02 19:42:00 2021-06-03 10:10:00 Anesthesia Event Jonh Rodriguez [facility] [id number] [id number] [facility] 2021-06-02 14:04:00 2021-06-02 14:04:00 Inpatient P QUENTIN [facility] [id number] [facility] 2021-05-30 13:30:00 2021-05-30 13:30:00 Outpatient [facility]ANNAH [facility] [facility] [id number] 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 2021-05-29 00:00:00 2021-05-29 00:00:00 Telephone Dean Edwards [facility] MACHINE SETTER [facility] & CHILD [facility] 1.2.840.114 350.1.13.10 4.2.7.2.[id number] [facility] 2021-05-28 09:30:00 2021-05-28 11:09:26 Routine Visit Dean Edwards [facility] MACHINE SETTER [facility] & CHILD [facility] 1..840.114 350.1.13.10 4.2.7.2.[id number] [facility] 2021-05-28 09:30:00 2021-05-28 11:09:26 Outpatient R ANGELA EDWARDSJOSEMANUELNAGELICEstefania [facility] [id number] [facility] 2021-05-28 09:30:00 2021-05-28 09:30:00 Outpatient R ANGELA EDWARDSJOSEMANUELKRISTAN [facility] [id number] [facility] 2021-05-25 08:15:00 2021-05-25 08:15:00 Outpatient ANGELA ROSENCLIFTONEstefania [facility] [id number] [facility] 2021-05-10 09:30:00 2021-05-10 09:49:03 Outpatient R DEAN EDWARDS [facility] [id number] [facility] 2021-05-10 09:30:00 2021-05-10 09:49:03 Routine Visit Dean Edwards Ad [facility] 1.2.840.114 350.1.13.10 4.2.7.2.[id number] [facility] 2021-05-10 09:30:00 2021-05-10 09:49:03 Outpatient R DEAN EWDARDS [facility] [id number] [facility] 2021-04-29 00:00:00 2021-04-29 00:00:00 Telephone Vi Mccarthy [facility] MACHINE SETTER [facility] & CHILD [facility] 1.0.114 350.1.13.10 4.2.7.2.[id number] [facility] 2021-04-26 09:30:00 2021-04-26 10:29:45 Outpatient R GRACE DEAN [facility] [id number] [facility] 2021-04-26 09:30:00 2021-04-26 10:29:45 Routine Visit Dean Edwards [facility] MACHINE SETTER [facility] CHILD [facility] 1..114 350.1.13.10 4.2.7.2.[id number] [facility] 2021-04-26 00:00:00 2021-04-26 00:00:00 Orders Only Doctor Unassigned, [place] [facility] ..114 350.1.13.10 4.2.7.2.[id number] [facility] 2021-04-11 00:00:00 2021-04-11 00:00:00 Telephone Eloina Black [facility] ..114 350.1.13.10 4.2.7.2.[id number] [facility] 2021-04-11 00:00:00 2021-04-11 00:00:00 Patient Secure Msg Doctor Unassigned, [place] [facility] 1.840.114 350.1.13.10 4.2.7.2.[id number] [facility] 2021-04-05 11:00:00 2021-04-05 11:00:00 Outpatient ELOINA PINEDO [facility] [id number] [facility] 2021-04-03 10:45:00 2021-04-03 10:45:00 Outpatient VI CHAMPAGNE [facility] [id number] [facility] 2021-03-08 10:00:00 2021-03-08 10:00:00 Outpatient ELOINA PINEDO [facility] [id number] 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 2021-02-20 14:30:00 2021-02-20 14:30:00 Outpatient P [facility] [id number] [facility] 2021-02-07 14:04:59 2021-02-07 14:41:49 Routine Visit Provider, Vi Jones [facility] MACHINE SETTER [facility] & CHILD [facility] 1..840.114 350.1.13.10 4.2.7.2.[id number] [facility] 2021-02-07 14:00:00 2021-02-07 14:00:00 Outpatient R [facility] [id number] [facility] 2021-01-18 00:00:00 2021-01-18 00:00:00 Orders Only Doctor Unassigned, [place] [facility] ..840.114 350.1.13.10 4.2.7.2.[id number] [facility] 2021-01-11 00:00:00 2021-01-11 00:00:00 Telephone Dean Edwards [facility] MACHINE SETTER [facility] & CHILD [facility] 1.2.840.114 350.1.13.10 4.2.7.2.[id number] [facility] 2021-01-10 12:45:09 2021-01-10 13:15:32 Routine Visit Dean Edwards [facility] MACHINE SETTER [facility] CHILD [facility] 1.2.840.114 350.1.13.10 4.2.7.2.[id number] [facility] 2021-01-10 12:45:09 2021-01-10 13:15:32 Routine Visit Dean Edwards [facility] 1.2.840.114 350.1.13.10 4.2.7.2.[id number] [facility] 2021-01-10 12:45:00 2021-01-10 12:45:00 Outpatient R DEAN EDWARDS [facility] [id number] [facility] 2020-12-13 11:01:23 2020-12-13 11:16:23 Routine Visit Dean Edwards [facility] 1.2.840.114 350.1.13.10 4.2.7.2.[id number] [facility] 2020-12-13 11:00:00 2020-12-13 11:00:00 Outpatient R DEAN EDWARDS [facility] [id number] [facility] 2020-12-05 00:00:00 2020-12-05 00:00:00 Abstract Dean Edwards [facility] MACHINE SETTER [facility] CHILD [facility] 1.2.840.114 350.1.13.10 4.2.7.2.[id number] 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 2020-12-04 11:00:00 2020-12-04 11:00:00 Outpatient P [facility] [id number] [facility] 2020-11-20 00:00:00 2020-11-20 00:00:00 Telephone Daen Edwards [facility] MACHINE SETTER [facility] & CHILD [facility] 1.2.840.114 350.1.13.10 4.2.7.2.[id number] [facility] 2020-11-15 12:58:11 2020-11-15 13:45:00 Initial Visit Dean Edwards [facility] MACHINE SETTER [facility] CHILD [facility] 1.2.840.114 350.1.13.10 4.2.7.2.[id number] [facility] 2020-11-15 12:45:00 2020-11-15 12:45:00 Outpatient R [facility] [id number] [facility] 2020-11-15 00:00:00 2020-11-15 00:00:00 Orders Only Doctor Unassigned, [place] [facility] 1..840.114 350.1.13.10 4.2.7.2.[id number] [facility] 2020-09-05 10:00:00 2020-09-05 10:00:00 Outpatient R ELOINA BLACK [facility] [id number] [facility] 2020-08-29 14:30:00 2020-08-29 14:30:00 Outpatient R [facility] [id number] [facility] 2020-08-22 15:08:00 2020-08-22 16:43:00 Emergency Quentin Albrecht [facility] 1.2.840.114 350.1.13.10 4.2.7.2.[id number] [facility] 2020-08-22 09:45:00 2020-08-22 09:45:00 Outpatient R [facility] [id number] [facility] 2020-08-21 18:40:00 2020-08-21 18:40:00 Outpatient R ERIC PATEL [facility] [id number] [facility] 2020-08-17 00:00:00 2020-08-17 00:00:00 Telephone Hannah Templeton [facility] MACHINE SETTER [facility] CHILD [facility] 1.2.840.114 350.1.13.10 4.2.7.2.[id number] [facility] 2020-08-16 00:00:00 2020-08-16 00:00:00 Telephone Hannah Templeton [facility] MACHINE SETTER [facility] CHILD [facility] 1.2.840.114 350.1.13.10 4.2.7.2.[id number] [facility] 2020-08-16 00:00:00 2020-08-16 00:00:00 Telephone Eloina Black [facility] MACHINE SETTER [facility] CHILD [facility] 1.2.840.114 350.1.13.10 4.2.7.2.[id number] [facility] 2020-08-15 14:30:00 2020-08-15 14:30:00 Outpatient R ELVIN GREEN [facility] [id number] [facility] 2020-08-15 11:17:00 2020-08-15 11:47:22 Routine Visit Hannah Templeton Emily N [facility] MACHINE SETTER [facility] & CHILD [facility] .840.114 350.1.13.10 4.2.7.2.[id number] [facility] 2020-08-15 11:00:00 2020-08-15 11:00:00 Outpatient R ELOINA BLACK [facility] [id number] [facility] 2020-08-14 00:00:00 2020-08-14 00:00:00 Telephone Eloina Black [facility] MACHINE SETTER [facility] CHILD [facility] 1.840.114 350.1.13.10 4.2.7.2.[id number] [facility] 2020-08-10 10:45:00 2020-08-10 10:45:00 Outpatient R ELOINA BLACK [facility] [id number] [facility] 2020-08-08 15:30:00 2020-08-08 15:30:00 Outpatient R [facility] [id number] [facility] 2020-08-08 14:30:00 2020-08-08 14:30:00 Outpatient R [facility] [id number] [facility] 2020-08-03 11:33:07 2020-08-03 11:53:07 Laboratory Only Lab, Adc [facility] Po I Deepa Spence [facility] .840.114 350.1.13.10 4.2.7.2.[id number] [facility] 2020-08-03 11:40:00 2020-08-03 11:40:00 Outpatient R DEEPA SPENCE [facility] [id number] [facility] 2020-08-01 09:58:49 2020-08-01 10:45:23 Routine Visit Trimester, [facility] Res-1st Elvin Green [facility] 1.840.114 350.1.13.10 4.2.7.2.[id number] [facility] 2020-08-01 09:30:00 2020-08-01 09:30:00 Outpatient R [facility] [id number] [facility] 2020-07-31 09:00:00 2020-07-31 09:00:00 Outpatient R [facility] [id number] [facility] 2020-07-27 00:00:00 2020-07-27 00:00:00 Telephone Dean Edwards [facility] MACHINE SETTER [facility] CHILD [facility] 1.840.114 350.1.13.10 4.2.7.2.[id number] [facility] 2020-07-26 13:06:20 2020-07-26 14:21:08 Initial Visit Eloina Black [facility] MACHINE SETTER [facility] CHILD [facility] 1.840.114 350.1.13.10 4.2.7.2.[id number] [facility] 2020-07-26 13:00:00 2020-07-26 13:00:00 Outpatient ELOINA PINEDO [facility] [id number] [facility] 2020-07-26 00:00:00 2020-07-26 00:00:00 Orders Only Doctor Unassigned, [place] [facility] .84.114 350.1.13.10 4.2.7.2.[id number] [facility] 2020-07-25 14:00:00 2020-07-25 14:00:00 Outpatient R DEAN EDWARDS [facility] [id number] [facility] 2020-07-25 00:00:00 2020-07-25 00:00:00 Patient Outreach Willam Jensen [facility] .840.114 350.1.13.10 4.2.7.2.[id number] [facility] 2020-07-20 14:00:00 2020-07-20 14:00:00 Outpatient Ad BLACK ELOINA [facility] [id number] [facility] 2020-04-21 00:00:00 2020-04-21 00:00:00 Patient Secure Msg Doctor Unassigned, [place] [facility] 1.2.840.114 350.1.13.10 4.2.7.2.[id number] [facility] 2020-02-15 11:00:00 2020-02-15 11:00:00 Outpatient DEAN ROSEN [facility] [id number] [facility] 2020-02-09 13:00:00 2020-02-09 13:00:00 Outpatient DEAN ROSEN [facility] [id number] [facility] 2019-11-17 14:04:29 2019-11-17 16:36:30 Office Visit Dean Edwards [facility] MACHINE SETTER [facility] CHILD [facility] 1.2.840.114 350.1.13.10 4.2.7.2.[id number] [facility] 2019-11-17 14:04:29 2019-11-17 16:36:30 Office Visit Dean Edwards [facility] MACHINE SETTER [facility] CHILD [facility] 1.2.840.114 350.1.13.10 4.2.7.2.686 [id number] 107 [id number] 2019-11-17 13:45:00 2019-11-17 13:45:00 Outpatient DEAN ROSEN [facility] [id number] [facility] 2019-10-21 15:45:00 2019-10-21 15:45:00 Outpatient DEAN ROSEN [facility] [id number] [facility] 2019-09-30 07:26:37 2019-09-30 10:46:56 Telemedici ne Visit Rohini Edwardsestefania Duong [facility] MACHINE SETTER [facility] CH[facility] 1.2.840.114 350.1.13.10 4.2.7.2.[id number] [facility] 2019-09-30 09:45:00 2019-09-30 09:45:00 Outpatient ANGELA ROSENBRYN [facility] [id number] [facility] 2019-09-28 00:00:00 2019-09-28 00:00:00 Telephone Griselda Edwardskristan Duong [facility] MACHINE SETTER [facility] CHILD [facility] 1.2840.114 350.1.13.10 4.2.7.2.[id number] [facility] 2019-09-13 15:00:00 2019-09-13 15:00:00 Outpatient ANGELA ROSENBRYN [facility] [id number] [facility] 2019-09-13 00:00:00 2019-09-13 00:00:00 Telephone Rohini Edwardsestefania Duong [facility] MACHINE SETTER [facility] CHILD [facility] 1.2840.114 350.1.13.10 4.2.7.2.[id number] [facility] 2019-09-10 00:00:00 2019-09-10 00:00:00 Telephone Hannah Templeton [facility] MACHINE [facility]TER [facility] CHILD [facility] 1.2.840.114 350.1.13.10 4.2.7.2.[id number] [facility] 2019-09-08 13:00:00 2019-09-08 13:00:00 Outpatient ANGELA ROSENCLIFTONEstefania [facility] [id number] [facility] 2019-09-03 21:41:00 2019-09-05 12:22:00 Hospital Encounter Armin Alberto [facility] 1.2.114 350.1.13.10 4.2.7.2.[id number] [facility] 2019-09-03 00:00:00 2019-09-03 00:00:00 Telephone Hannah Templeton [facility] MACHINE SETTER [facility] CHILD [facility] 1.2.840.114 350.1.13.10 4.2.7.2.[id number] [facility] 2019-09-01 11:04:48 2019-09-01 12:49:48 Routine Visit EdwardsDean [facility] MACHINE SETTER [facility] CHILD [facility] 1.2.840.114 350.1.13.10 4.2.7.2.[id number] [facility] 2019-09-01 10:45:00 2019-09-01 10:45:00 Outpatient R DEAN EDWARDS [facility] [id number] [facility] 2019-08-26 00:00:00 2019-08-26 00:00:00 Telephone EdwardsDean [facility] MACHINE SETTER [facility] CHILD [facility] 1.2.840.114 350.1.13.10 4.2.7.2.[id number] [facility] 2019-08-25 09:12:32 2019-08-25 10:15:17 Routine Visit Dean Edwards [facility] MACHINE SETTER [facility] CHILD [facility] 1.2.840.114 350.1.13.10 4.2.7.2.[id number] [facility] 2019-08-25 09:00:00 2019-08-25 09:00:00 Outpatient R DEAN EDWARDS [facility] [id number] [facility] 2019-08-17 15:22:17 2019-08-17 16:16:48 Routine Visit Hannah Templeton [facility] MACHINE SETTER [facility] CHILD [facility] 1.2.840.114 350.1.13.10 4.2.7.2.[id number] [facility] 2019-08-17 14:45:00 2019-08-17 14:45:00 Outpatient R HANNAH TEMPLETON [facility] [id number] [facility] 2019-08-17 00:00:00 2019-08-17 00:00:00 Telephone Hannah Templeton [facility] MACHINE [facility]TER [facility] 1.2.840.114 350.1.13.10 4.2.7.2.[id number] [facility] 2019-08-12 13:55:40 2019-08-12 14:03:43 Telemedici ne Visit Dean Edwards [facility] MACHINE SETTER [facility] CHILD [facility] 1.2840.114 350.1.13.10 4.2.7.2.[id number] [facility] 2019-08-12 13:45:00 2019-08-12 13:45:00 Outpatient R DEAN EDWARDS [facility] [id number] [facility] 2019-08-05 10:30:00 2019-08-05 10:30:00 Outpatient DEAN ROSEN [facility] [id number] [facility] 2019-08-05 00:00:00 2019-08-05 00:00:00 Telephone Dean Edwards [facility] MACHINE SETTER [facility] 1.2.840.114 350.1.13.10 4.2.7.2.[id number] [facility] 2019-07-23 00:00:00 2019-07-23 00:00:00 Telephone Hannah Templeton [facility] MACHINE SETTER [facility] 1.2.840.114 350.1.13.10 4.2.7.2.[id number] [facility] 2019-07-22 09:16:52 2019-07-22 10:24:47 Routine Visit Hannah Templeton Roshunda R [facility] MACHINE SETTER [facility] CHILD [facility] 1.2840.114 350.1.13.10 4.2.7.2.[id number] [facility] 2019-07-22 09:00:00 2019-07-22 09:00:00 Outpatient R DEAN EDWARDS [facility] [id number] [facility] 2019-07-08 00:00:00 2019-07-08 00:00:00 Telephone Hannah Templeton [facility] MACHINE SETTER [facility] 1.840.114 350.1.13.10 4.2.7.2.[id number] [facility] 2019-06-30 09:45:00 2019-06-30 09:45:00 Outpatient R HANNAH TEMPLETON [facility] [id number] [facility] 2019-06-24 00:00:00 2019-06-24 00:00:00 Letter (Out) Hannah Templeton [facility] MACHINE SETTER [facility] CHILD [facility] 1.840.114 350.1.13.10 4.2.7.2.[id number] [facility] 2019-06-02 00:00:00 2019-06-02 00:00:00 Abstract Hannah Templeton [facility] MACHINE SETTER [facility] CHILD [facility] 1.2840.114 350.1.13.10 4.2.7.2.[id number] [facility] 2019-05-18 15:22:47 2019-05-18 16:34:43 Routine Visit Hannah Templeton [facility] MACHINE SETTER [facility] CHILD [facility] 1.2.840.114 350.1.13.10 4.2.7.2.[id number] [facility] Results Test Description Test Time Test Comments Results Result Co mments Source HEPATITIS PANEL, [id number] 04:19:12* Test Item Value Reference Range Interpretation Comme nts HEPATITIS A IgM (test code = 39603) NON-REACTIVE NON-REACTIVE HEPATITIS B CORE IgM (test code = 4644) NON-REACTIVE NON-REACTIVE HEPATITIS B SURF AG (test code = 2739) NON-REACTIVE NON-REACTIVE HEPATITIS C ANTIBODY (test code = 4675) NON-REACTIVE NON-REACTIVE INTERPRETATION HEPATITIS A: (test code = 2552) (NOTE) Hepatitis A sero logy shows no evidence of acute hepatitis A. INTERPRETATION HEPATITIS B: (test code = 00585) (NOTE) Hepatitis B sero logy shows no evidence of acute hepatitis B andno indication of exposure to hepatitis B virus in the previous lalitha eight months. INTERPRETATION HEPATITIS C: (test code = 12176) (NOTE) Hepatitis C sero logy shows no evidence of exposure to hepatitisC virus at this time. It can take up to 12 months after exposure tothe hepatitis C virus for antibodies to become detectable in the blood in certain patients. UNLESS OTHERWISE INDICATED, ALL TESTING PERFORMED AT [facility] [address] [place] [address] [address] COURT: PARTHA JACKSON M.D. CLIA NUMBER [id number] [facility] [place] [id number] COMPREHENSIVE METABOLIC [id number] 04:07:24* Test Item Value Reference Range Interpretation Comme nts GLUCOSE (test code = 2217) 62 MG/DL 70-99 L BUN (test code = 2208) 9 MG/DL 6-20 CREATININE (test code = 2214) 0.62 MG/DL 0.60-1.30 eGFR (2020 CKD-EPI) (test code = 91134) 125 ML/MIN/1.73 >60 CALC BUN/CREAT (test code = 2235) 15 RATIO 6-28 SODIUM (test code = 2231) 141 MEQ/L 133-146 POTASSIUM (test code = 2228) 3.7 MEQ/L 3.5-5.4 CHLORIDE (test code = 2215) 103 MEQ/L 95-107 CARBON DIOXIDE (test code = 2205) 26 MEQ/L 19-31 CALCIUM (test code = 2208) 8.9 MG/DL 8.5-10.5 PROTEIN, TOTAL (test code = 2228) 6.9 G/DL 6.1-8.3 ALBUMIN (test code = 2200) 4.4 G/DL 3.5-5.2 CALC GLOBULIN (test code = 0) 2.5 G/DL 1.9-3.7 CALC A/G RATIO (test code = 2233) 1.8 RATIO 1.0-2.6 BILIRUBIN, TOTAL (test code = 2206) 0.4 MG/DL See_Comment [Automated me ssage] The system which generated this result transmitted reference range: <=1.2. The reference range was not used to interpret this result as normal/abnormal. ALKALINE PHOSPHATASE (test code = 2203) 74 U/L 40-112 AST (test code = 2217) 13 U/L 9-40 ALT (test code = 2218) 10 U/L 5-40 CBC W/AUTO DIFF WITH [id number] 02:05:21* Test Item Value Reference Range Interpretation Comme nts WBC (test code = 1001) 7.2 K/UL 3.5-11.0 RBC (test code = 1002) 4.62 M/UL 3.80-5.40 HEMOGLOBIN (test code = 1003) 13.2 G/DL 11.5-15.5 HEMATOCRIT (test code = 1004) 39.9 % 34.0-45.0 MCV (test code = 1005) 86.4 fL 80.0-99.0 MCH (test code = 1006) 28.6 PG 25.0-33.0 MCHC (test code = 1007) 33.1 G/DL 31.0-36.0 RDW (test code = 1038) 12.4 % 11.5-15.0 NEUTROPHILS (test code = 1008) 51.8 % LYMPHOCYTES (test code = 1010) 36.9 % MONOCYTES (test code = 1011) 7.5 % EOSINOPHILS (test code = 1012) 2.9 % BASOPHILS (test code = 1013) 0.6 % IMMATURE GRANULOCYTES (test code = 1036) 0.3 % NUCLEATED RBCS (test code = 1065) 0.0 /100 WBC'S See_Comment [Automated messa ge] The system which generated this result transmitted reference range: 0.0. The reference range was not used to interpret this result as normal/abnormal. PLATELET COUNT (test code = 1015) 205 K/UL 130-400 ABSOLUTE NEUTROPHILS (test code = 1066) 3.74 K/UL 1.50-7.50 ABSOLUTE LYMPHOCYTES (test code = 1067) 2.66 K/UL 1.00-4.00 ABSOLUTE MONOCYTES (test code = 1068) 0.54 K/UL 0.20-1.00 ABSOLUTE EOSINOPHILS (test code = 1040) 0.21 K/UL 0.00-0.50 ABSOLUTE BASOPHILS (test code = 1069) 0.04 K/UL 0.00-0.20 ABS IMMATURE GRANULOCYTES (test code = 1020) 0.02 K/UL 0.00-0.10 ABS NUCLEATED RBCS (test code = 17333) 0.00 K/UL 0.00-0.11 CBC W/AUTO [id number] 00:00:00* Test Item Value Reference Range Interpretation Comme nts WBC (test code = 1001) 7.2 K/UL RBC (test code = 1002) 4.62 M/UL HEMOGLOBIN (test code = 1003) 13.2 G/DL HEMATOCRIT (test code = 1004) 39.9 % MCV (test code = 1005) 86.4 fL MCH (test code = 1006) 28.6 PG MCHC (test code = 1007) 33.1 G/DL RDW (test code = 1038) 12.4 % NEUTROPHILS (test code = 1008) 51.8 % LYMPHOCYTES (test code = 1010) 36.9 % MONOCYTES (test code = 1011) 7.5 % EOSINOPHILS (test code = 1012) 2.9 % BASOPHILS (test code = 1013) 0.6 % IMMATURE GRANULOCYTES (test code = 1036) 0.3 % NUCLEATED RBCS (test code = 1065) 0.0 /100WBC'S PLATELET COUNT (test code = 1015) 205 K/UL ABSOLUTE NEUTROPHILS (test c ode = 1066) 3.74 K/UL ABSOLUTE LYMPHOCYTES (test c ode = 1067) 2.66 K/UL ABSOLUTE MONOCYTES (test cod e = 1068) 0.54 K/UL ABSOLUTE EOSINOPHILS (test c ode = 1040) 0.21 K/UL ABSOLUTE BASOPHILS (test cod e = 1069) 0.04 K/UL ABS IMMATURE GRANULOCYTES (t est code = 1020) 0.02 K/UL ABS NUCLEATED RBCS (test cod e = 64912) 0.00 K/UL Anirudh BolesCOMPREHENSIVE METABOLIC [id number] 00:00:00* Test Item Value Reference Range Interpretation Comme nts GLUCOSE (test code = 2217) 62 MG/DL BUN (test code = 2208) 9 MG/DL CREATININE (test code = 2214) 0.62 MG/DL eGFR (2020 CKD-EPI) (test code = 88062) 125 ML/MIN/1.73 CALC BUN/CREAT (test code = 2235) 15 RATIO SODIUM (test code = 2231) 141 MEQ/L POTASSIUM (test code = 2228) 3.7 MEQ/L CHLORIDE (test code = 2215) 103 MEQ/L CARBON DIOXIDE (test code = 2206) 26 MEQ/L CALCIUM (test code = 2209) 8.9 MG/DL PROTEIN, TOTAL (test code = 2229) 6.9 G/DL ALBUMIN (test code = 2201) 4.4 G/DL CALC GLOBULIN (test code = 2240) 2.5 G/DL CALC A/G RATIO (test code = 2234) 1.8 RATIO BILIRUBIN, TOTAL (test code = 2207) 0.4 MG/DL ALKALINE PHOSPHATASE (test code = 2204) 74 U/L AST (test code = 2218) 13 U/L ALT (test code = 2219) 10 U/L Anirudh BolesHIV 1/2 4TH GEN, RFLX [id number] 00:00:00* Test Item Value Reference Range Interpretation Comme nts HIV 1/2 4TH GEN, RFLX CONF ( test code = 3514) NON-REACTIVE Anirudh BolesACUTE HEPATITIS [id number] 00:00:00* Test Item Value Reference Range Interpretation Comme nts HEPATITIS A IgM (test code = 71561) NON-REACTIVE HEPATITIS B CORE IgM (test c ode = 4631) NON-REACTIVE HEPATITIS B SURF AG (test co de = 9062) NON-REACTIVE HEPATITIS C ANTIBODY (test c ode = 7533) NON-REACTIVE INTERPRETATION HEPATITIS A: (test code = 2552) (NOTE) INTERPRETATION HEPATITIS B: (test code = 09320) (NOTE) INTERPRETATION HEPATITIS C: (test code = 22494) (NOTE) Anirudh Boles
[2024-04-16] MEDS ORDERED: dexAMETHasone 10 MG/ML VIAL ONE (21:53)
[2024-04-16 21:56] LABS: Absolute Basophils 0.1 K/uL (0-0.5); Absolute Eosinophils 0.3 K/uL (0-0.5); Absolute Lymphocytes (CBC) 2.3 K/uL (0.7-4.9); Absolute Monocytes 0.6 K/uL (0.1-1.3); Absolute Neutrophil 5.5 K/uL (1.8-8.0); Basophils % 0.6 % (0-1.3); Eosinophils % 3.4 % (0-4.4); Hematocrit 37.9 % (36.0-45.0); Hemoglobin 12.5 g/dL (12.0-15.0); MCHC 33.1 g/dL (32.0-36.0); MCV 87.7 fL (80-100); MPV 8.2 fL (7.6-11.3); Monocytes % 7.1 % (3.3-12.3); Neutrophils % 62.9 % (41.7-73.7); Platelets 181 thou/uL (152-406); RBC Red Blood Cell Count 4.33 M/uL (3.86-4.86); Red Cell Distribution Width 12.2 % (12.1-15.2)
[2024-04-16 22:14] LABS: Albumin 3.6 g/dL (3.4-5.0); Anion Gap 6.4 mEq/L (5.0-15.0); Bilirubin Total 0.5 mg/dL (0.2-1.0); Globulin 3.5 g/dL (2.3-3.5); Potassium 3.4 mEq/L (3.5-5.1); Protein, Total 7.1 g/dL (6.4-8.2)
[2024-04-16 22:15] LABS: Monoscreen NEG (NEG)
--- NOTE | 2024-04-16 22:28 | RAD REPORT ---
EXAMINATION: CT HEAD WITHOUT CONTRAST CLINICAL INDICATION: Female, 29 years old.swelling;Headache TECHNIQUE: Axial CT images from the skull base to the vertex without intravenous contrast. Coronal an d sagittal reformatted images were created from the data set. One or more of the following dose reduction techniques were used: Automated exposure control, adjustment of the mA and/or kV according to patient size, and/or iterative reconstruction. Unless otherwise specified, incidental findings do not require dedicated imaging follow-up. [id number]. COMPARISON: No prior exam. FINDINGS: INTRACRANIAL: No acute intracranial hemorrhage. No hydrocephalus. No mass effect or midline shift. No significant white matter disease. VASCULATURE: No visualized abnormalities in the arteries or dural venous sinuses. SCALP/SKULL: No significant soft tissue or osseous abnormalities. SINUSES: Right maxillary sinus mucus retention cyst. IMPRESSION: No acute intracranial abnormality.
[2024-04-16] MEDS ORDERED: KETOROLAC 30 MG/ML INJ ONE (22:44)
[2024-04-16] MEDS ORDERED: METOCLOPRAMIDE 10 MG/2mL INJ ONE (22:44)
[2024-04-16] MEDS ORDERED: DIPHENHYDRAMINE 50 MG/ML VIAL ONE (22:44)
[2024-04-16] MEDS ORDERED: NA CHLORIDE 0.9% 1,000 ML ONE (22:45)
--- NOTE | 2024-04-16 23:32 | ER ---
Nurse's Notes [facility] Name: Kimmy Archer Age: 29 yrs Sex: Female : 1995 Arrival Date: 04/16/2024 Time: 21:20 Bed 19 Private MD: Diagnosis: Headache;Local infection of the skin and subcutaneous tissue, unspecified Presentation: 04/16 21:25 Chief complaint: Patient states: facial swelling that started yesterday. Also reports cp4 headache. Coronavirus screen: Client denies travel out of the [place] in the last 14 days. At this time, the client does not indicate any symptoms associated with coronavirus-19. Ebola Screen: Patient negative for fever greater than or equal to 101.5 degrees Fahrenheit, and additional compatible Ebola Virus Disease symptoms Patient denies exposure to infectious person. Patient denies travel to an Ebola-affected area in the 21 days before illness onset. No symptoms or risks identified at this time. Initial Sepsis Screen: Does the patient meet any 2 criteria? No. Patient's initial sepsis screen is negative. Does the patient have a suspected source of infection? No. Patient's initial sepsis screen is negative. Risk Assessment: Do you want to hurt yourself or someone else? Patient reports no desire to harm self or others. Onset of symptoms was April 15, 2024. 21:25 Method Of Arrival: Ambulatory cp4 21:25 Acuity: LILIANA 3 cp4 Triage Assessment: 21:29 General: Appears in no apparent distress. uncomfortable, Behavior is calm, cooperative, cp4 appropriate for age. Pain: Complains of pain in head. EENT: Parent/caregiver reports the patient having facial swelling and head pain. KETTLE CLEANER: 21:29 Not cp4 Historical: - Allergies: 21:29 No Known Allergies; cp4 - Immunization history:: Adult Immunizations. - Infectious Disease History:: Denies. - Social history:: Smoking status: Reported history of juuling and/or vaping. Screenin:56 [facility] ED Fall Risk Assessment (Adult) History of falling in the last 3 months, bm8 including since admission No falls in past 3 months (0 pts) Confusion or Disorientation No (0 pts) Intoxicated or Sedated No (0 pts) Impaired Gait No (0 pts) Mobility Assist Device Used No (0 pt) Altered Elimination No (0 pt) Score/Fall Risk Level 0 - 2 = Low Risk Oriented to surroundings, Maintained a safe environment, Educated pt \T\ family on fall prevention, incl call for assistance when getting out of bed, Assessed \T\ reinforced patient's understanding of fall precautions, Hourly rounding (assess needs \T\ fall precautionary measures) done, Used ambulatory aids as needed (educated on \T\ assisted with), Used gait belt as appropriate. Abuse screen: Denies threats or abuse. Nutritional screening: No deficits noted. Tuberculosis screening: No symptoms or risk factors identified. Assessment: 21:54 Reassessment: Patient appears in no apparent distress at this time. Patient and/or bm8 family updated on plan of care and expected duration. Pain level reassessed. Patient is alert, oriented x 3, equal unlabored respirations, skin warm/dry/pink. General: Appears in no apparent distress. uncomfortable, Behavior is calm, cooperative, appropriate for age. Pain: Complains of pain in face and neck Pain currently is 8 out of 10 on a pain scale. Quality of pain is described as aching. Neuro: No deficits noted. Level of Consciousness is awake, alert, obeys commands, Oriented to person, place, time, situation, Appropriate for age. Cardiovascular: Denies chest pain, Heart tones S1 S2 present Capillary refill < 3 seconds in bilateral fingers Patient's skin is warm and dry. Respiratory: Airway is patent Trachea midline Respiratory effort is even, unlabored, Respiratory pattern is regular, symmetrical, Breath sounds are clear bilaterally. GI: No signs and/or symptoms were reported involving the gastrointestinal system. : No signs and/or symptoms were reported regarding the genitourinary system. EENT: Ear canal clear on right ear pt reports sever right sided ear pain,. Throat is clear bilaterally with gag reflex present, lymph nodes swollen bilaterally. Reports pain. Derm: No signs and/or symptoms reported regarding the dermatologic system. Musculoskeletal: No signs and/or symptoms reported regarding the musculoskeletal system. 23:06 Reassessment: Patient appears in no apparent distress at this time. No changes from bm8 previously documented assessment. Patient and/or family updated on plan of care and expected duration. Pain level reassessed. Patient is alert, oriented x 3, equal unlabored respirations, skin warm/dry/pink. 23:39 Reassessment: Patient appears in no apparent distress at this time. Patient and/or bm8 family updated on plan of care and expected duration. Pain level reassessed. Patient is alert, oriented x 3, equal unlabored respirations, skin warm/dry/pink. Patient denies pain at this time. Patient states feeling better. Patient states symptoms have improved. Reassessment: pt states that pain is totally gone and she is ready to go home. Pain: Denies pain. Vital Signs: 21:25 BP 121 / 66; Pulse 73; Resp 16; Temp 97.4; Pulse Ox 98% ; Weight 86.18 kg; Height 5 ft. cp4 10 in. ; Pain 8/10; 21:56 BP 115 / 78; Pulse 68; Resp 18; Temp 97.4; Pulse Ox 100% ; Pain 8/10; bm8 23:06 BP 116 / 68; Pulse 107; Resp 18; Temp 97.4; Pulse Ox 100% ; Pain 8/10; bm8 23:39 BP 117 / 57; Pulse 71; Resp 18; Temp 97.4; Pulse Ox 100% ; Pain 0/10; bm8 21:25 Body Mass Index 27.26 (86.18 kg, 177.8 cm) cp4 21:25 Pain Scale: Adult cp4 21:56 Pain Scale: Adult bm8 23:06 Pain Scale: Adult bm8 23:39 Pain Scale: Adult bm8 [place] Coma Score: 21:56 Eye Response: spontaneous(4). Motor Response: obeys commands(6). Verbal Response: bm8 oriented(5). Total: 15. 23:06 Eye Response: spontaneous(4). Motor Response: obeys commands(6). Verbal Response: bm8 oriented(5). Total: 15. 23:39 Eye Response: spontaneous(4). Motor Response: obeys commands(6). Verbal Response: bm8 oriented(5). Total: 15. ED Course: 21:21 Patient arrived in ED. im 21:22 Mirna Gallardo FNP-C is PHCP. kb 21:22 Domingo Aviles DO is Attending Physician. kb 21:29 Triage completed. cp4 21:29 Arm band placed on right wrist. Patient placed in waiting room. cp4 21:56 Patient has correct armband on for positive identification. Bed in low position. Call bm8 light in reach. Side rails up X 1. Adult w/ patient. Client placed on continuous cardiac and pulse oximetry monitoring. NIBP monitoring applied. Pulse ox on. NIBP on. Door closed. Noise minimized. Pillow given. Verbal reassurance given. Head of bed elevated. 21:56 No provider procedures requiring assistance completed. Initial lab(s) drawn, by me, bm8 sent to lab. Strep swab sent to lab. Inserted saline lock: 20 gauge in left antecubital area, using aseptic technique. Blood collected. Flushed with 10 mL NS. Patient maintains SpO2 saturation greater than 95% on room air. 22:22 CT Head Brain wo Cont In Process Unspecified. EDMS 22:26 Carl Gudino, RN is Primary Nurse. bm8 23:39 Provided Education on: post er care. bm8 23:39 IV discontinued, intact, bleeding controlled, No redness/swelling at site. Pressure bm8 dressing applied. Administered Medications: 21:54 Drug: Decadron - Dexamethasone IVP 10 mg IVP once Route: IVP; Site: left antecubital; bm8 22:34 Follow up: Response: No adverse reaction bm8 22:50 Drug: NS 0.9% IV 1000 ml IV at 1000 ml once; to be given as a bolus over 60 minutes bm8 Route: IV; Rate: 1000 ml; Site: left antecubital; 23:40 Follow up: Response: No adverse reaction; IV Status: Completed infusion; IV Intake: bm8 1000ml 22:50 Drug: diphenhydrAMINE IVP 12.5 mg IVP once Route: IVP; Site: left antecubital; bm8 23:40 Follow up: Response: No adverse reaction bm8 22:50 Drug: metoCLOPramide IVP 10 mg IVP once; over 1 to 2 minutes Route: IVP; Site: left bm8 antecubital; 23:40 Follow up: Response: No adverse reaction bm8 22:50 Drug: Ketorolac IVP 15 mg IVP once Route: IVP; Site: left antecubital; bm8 23:40 Follow up: Response: No adverse reaction bm8 Medication: 21:56 VIS not applicable for this client. bm8 Intake: 23:40 IV: 1000ml; Total: 1000ml. bm8 Outcome: 23:31 Discharge ordered by . nolvai 23:39 Discharged to home ambulatory, bm8 23:39 Discharged to home ambulatory, with family, 23:39 Condition: stable 23:39 Condition: stable 23:39 Discharge instructions given to patient, family, Instructed on discharge instructions, follow up and referral plans. no drinking with medication, no driving heavy equipment, medication usage, safety practices, Demonstrated understanding of instructions, follow-up care, medications, Prescriptions given X 2, 23:41 Patient left the ED. bm8 Signatures: Dispatcher [employer] EDMS Mirna Gallardo, INFIRMARY ATTENDANT-C INFIRMARY ATTENDANT-CkMarcy Swift Christina cp4 Carl Gudino, RN RN bm8
--- NOTE | 2024-04-16 23:32 | EDPHYS ---
Physician Documentation [facility] Name: Kimmy Archer Age: 29 yrs Sex: Female : 1995 Arrival Date: 04/16/2024 Time: 21:20 Bed 19 Private MD: ED Physician Domingo Aviles HPI: 04/16 22:21 This 29 yrs old Female presents to ER via Ambulatory with complaints of Facial kb Swelling, Ear Pain - right, Headache. 22:21 Pt is a 29 year old female who presents for swelling to face that started last night. kb States swelling has started to spread from forehead to her eyes. Also reports right ear pain and headache. Denies fever. . STRAW BALER: 21:29 Not cp4 Historical: - Allergies: 21:29 No Known Allergies; cp4 - Immunization history:: Adult Immunizations. - Infectious Disease History:: Denies. - Social history:: Smoking status: Reported history of juuling and/or vaping. ROS: 22:18 Constitutional: As per HPI kb Exam: 22:18 Constitutional: This is a well developed, well nourished patient who is awake, alert, kb and in no acute distress. Head/Face: Normocephalic, atraumatic. ENT: Moist Mucous membranes Cardiovascular: Regular rate Respiratory: Respirations even and unlabored. No increased work of breathing. Talking in full sentences Abdomen/GI: Soft, non-tender. No distention MS/ Extremity: Pulses equal, no cyanosis. Neurovascular intact. Full, normal range of motion. Neuro: Awake and alert, GCS 15, oriented to person, place, time, and situation. 22:18 Neck: Lymph nodes: lymphadenopathy is appreciated, anterior cervical nodes, 22:18 Skin: edema to forehead, around bilateral eyes, and right ear. 23:14 Skin: Pt has an area of erythema to top of head. States it has been there for "a kb while." States it started as an insect bite and she popped it, but didn't think anything of it. . Vital Signs: 21:25 BP 121 / 66; Pulse 73; Resp 16; Temp 97.4; Pulse Ox 98% ; Weight 86.18 kg; Height 5 ft. cp4 10 in. ; Pain 8/10; 21:56 BP 115 / 78; Pulse 68; Resp 18; Temp 97.4; Pulse Ox 100% ; Pain 8/10; bm8 23:06 BP 116 / 68; Pulse 107; Resp 18; Temp 97.4; Pulse Ox 100% ; Pain 8/10; bm8 23:39 BP 117 / 57; Pulse 71; Resp 18; Temp 97.4; Pulse Ox 100% ; Pain 0/10; bm8 21:25 Body Mass Index 27.26 (86.18 kg, 177.8 cm) cp4 21:25 Pain Scale: Adult cp4 21:56 Pain Scale: Adult bm8 23:06 Pain Scale: Adult bm8 23:39 Pain Scale: Adult bm8 Arnie Coma Score: 21:56 Eye Response: spontaneous(4). Motor Response: obeys commands(6). Verbal Response: bm8 oriented(5). Total: 15. 23:06 Eye Response: spontaneous(4). Motor Response: obeys commands(6). Verbal Response: bm8 oriented(5). Total: 15. 23:39 Eye Response: spontaneous(4). Motor Response: obeys commands(6). Verbal Response: bm8 oriented(5). Total: 15. MDM: 21:23 Medical Screening Exam initiated kb 22:21 Data reviewed: vital signs, nurses notes. kb 23:14 Differential diagnosis: bacterial infection, cellulitis, abscess, viral infection, kb edema. Counseling: I had a detailed discussion with the patient and/or guardian regarding the historical points, exam findings, and any diagnostic results supporting the discharge/admit diagnosis, lab results, radiology results, the need for outpatient follow up, a family practitioner, to return to the emergency department if symptoms worsen or persist or if there are any questions or concerns that arise at home. 04/16 21:29 Order name: CBC with Diff; Complete Time: 22:06 kb 04/16 21:29 Order name: CMP; Complete Time: 22:18 kb 04/16 21:29 Order name: Strep; Complete Time: 22:18 kb 04/16 21:29 Order name: [place] Screen Profile; Complete Time: 22:18 kb 04/16 22:13 Order name: Throat Culture EDMS 04/16 21:30 Order name: CT Head Brain wo Cont; Complete Time: 22:34 kb 04/16 21:29 Order name: IV Start; Complete Time: 21:54 kb Administered Medications: 21:54 Drug: Decadron - Dexamethasone IVP 10 mg IVP once Route: IVP; Site: left antecubital; bm8 22:34 Follow up: Response: No adverse reaction bm8 22:50 Drug: NS 0.9% IV 1000 ml IV at 1000 ml once; to be given as a bolus over 60 minutes bm8 Route: IV; Rate: 1000 ml; Site: left antecubital; 23:40 Follow up: Response: No adverse reaction; IV Status: Completed infusion; IV Intake: bm8 1000ml 22:50 Drug: diphenhydrAMINE IVP 12.5 mg IVP once Route: IVP; Site: left antecubital; bm8 23:40 Follow up: Response: No adverse reaction bm8 22:50 Drug: metoCLOPramide IVP 10 mg IVP once; over 1 to 2 minutes Route: IVP; Site: left bm8 antecubital; 23:40 Follow up: Response: No adverse reaction bm8 22:50 Drug: Ketorolac IVP 15 mg IVP once Route: IVP; Site: left antecubital; bm8 23:40 Follow up: Response: No adverse reaction bm8 Disposition: 04/17 00:06 I was immediately available on-site in the Emergency Department for consultation in the in3 care of the patient. Disposition Summary: 04/16/24 23:31 Discharge Ordered Notes: Location: Home kb Condition: Stable kb Diagnosis - Headache kb - Local infection of the skin and subcutaneous tissue, unspecified kb Followup: kb - With: Emergency Department - When: As needed - Reason: Worsening of condition Followup: kb - With: Private Physician - When: 2 - 3 days - Reason: Recheck today's complaints, Continuance of care, Re-evaluation by your physician Discharge Instructions: - Discharge Summary Sheet kb - Skin Abscess, [id number] kb - General Headache Without Cause, [id number] kb Forms: - Medication Reconciliation Form kb - Antibiotic Education kb - Prescription Opioid Use kb - Patient Portal Instructions kb - Leadership Thank You Letter kb Prescriptions: - Cephalexin 500 mg Oral Capsule - take 1 capsule ORAL route every 8 hours for 10 days; 30 capsule; Refills: 0, kb Product Selection Permitted - Prednisone 20 mg Oral Tablet - take 1 tablet ORAL route once daily for 5 days; 5 tablet; Refills: 0, Product kb Selection Permitted Signatures: Dispatcher [employer] EDMS Mirna Gallardo, BENCH HAND MACHINE-C BENCH HAND MACHINE-Ckb Domingo Aviles DO DO ms3 Clover Ochoa cp4 Carl Gudino, RN RN bm8 Corrections: (The following items were deleted from the chart) 04/16 21:29 21:29 CBC+H.LAB.BRZ ordered. EDMS EDMS 21: 21:29 COMPREHENSIVE METABOLIC PANEL+C.LAB.BRZ ordered. EDMS EDMS 21: 21:29 Group A Streptococcus Rapid Sc+BA.LAB.BRZ ordered. EDMS EDMS 21:29 21:29 MONO SCREEN PROFILE+I.LAB.BRZ ordered. EDMS EDMS
[2024-04-16 23:49] VITALS: TEMP 97.4
[2024-04-16 23:50] VITALS: O2SAT 100
[2024-04-16 23:53] VITALS: BP 117/57
== END 2024-04-16 23:41 | disposition home or self-care (01) ==
LOC: ER 21:20
DX: R51.9 Headache, unspecified (principal); L08.9 Local infection of the skin and subcutaneous tissue, unspecified; R22.0 Localized swelling, mass and lump, head; H92.01 Otalgia, right ear
CPT/HCPCS: 96361; 87070; 85025; 36415; 86308; 87081; 80053; 70450; 96375; 96374; 99284; J2765; J1200; J1100; J7030

== ENCOUNTER 2024-07-27 12:07 | Emergency (ER) | payer OTHER ==
--- OUTSIDE RECORDS SUMMARY | 2024-07-27 12:12 | XMS REPORT | Continuity of Care Document ---
Author Name Unknown Address [address] [facility] [address]. [address] [place] [address] [facility] Address [address] [facility]. [address] [place] [address] Care Team Providers Care Line Installer Repairer Name Role Phone Nicola SLATER, Zuly Primary Care Physician QUENTIN PRETTY Attending Clinician Unavailable HANNAH TEMPLETON Attending Clinician Unavail able Visit, Shauna Nurse Attending Clinician Unava ilable Hannah Welsh Attending Clinician + Doctor Unassigned, [place] Attending Clinician U navailDean Reese Attending Clinician + [phone] Quentin Pretty MD Attending Clinician [phone] DEAN EDWARDS Attending Clinician Unavailab vashti Rodriguez MD, Jonh Stack Attending Clinician [phone] Kojo, Shauna Attending Clinician Unavailable Vi Robles Attending Clinician + Eloina Hensley Attending Clinician [phone] ELOINA BLACK Attending Clinician Unavailabl e VI MCCARTHY Attending Clinician Unavail able Ultrasound, Daisy Attending Clinician Alexandra Alexandre MD, Crescencio Suazo Attending Clinician + Provider, Shauna Temp Attending Clinician Kim Regino Lomeli MD Attending Clinician [phone] Albrecht EMNP, Quentin R Attending Clinician [phone] ERIC PATEL Attending Clinician Unavailab ELVIN Mcdonnell Attending Clinician Unavailable Lab, Adc Fam Pob I Attending Clinician Unavailab Deepa Bateman Attending Clinician [phone] DEEPA SPENCE Attending Clinician Unavailable Trimester, [facility]-1st Attending Clinician Unavailable Elvin Green MD Attending Clinician [phone] Willam Jensen DO Attending Clinician [phone] Armin Alberto MD Attending Clinician [phone] QUENTIN PRETTY Admitting Clinician Unavailable Quentin Pretty MD Admitting Clinician [phone] Armin Alberto MD Admitting Clinician [phone] Payers Payer Name Policy Type Policy Number Effective Date Expirati on Date Source [employer] MEDICAID [id number] 2019 00:00:00 [facility] [id number] 2020 00:00:00 Problems Condition Name Condition Details Condition Category Status Onset Date Resolution Date Last Treatment Date Treating Clinician Comments Source Other general counseling and advice for contracept diane management Other general counseling and advice for contracept diane management Disease Active 3-30 00:00: 00 [facility] ASCUS of cervix with negative high risk HPV ASCUS of cervix with negative high risk HPV Disease Active 4-12 00:00: 00 [facility] Tobacco use disorder Tobacco use disorder Disease Active 3-24 00:00: 00 [facility] Allergies, Adverse Reactions, Alerts Allergy Name Allergy Type Status Severity Reaction(s) Onset Date Inactive Date Treating Clinician Comments Source NO KNOWN ALLERGIE S Drug Class Active [facility] Social History Social Habit Start Date Stop Date Quantity Comments Source History SDOH Alcohol Std Drinks [facility] History SDOH Alcohol Binge [facility] History SDOH Alcohol Comment [place] [facility] Exposure to SARS-CoV-2 (event) 2021-08-25 00:00:00 2021-09-04 13:28:[address] [facility] Tobacco Comment 2021-02-07 00:00:00 2021-02-07 00:00:00 3 packs per year [facility] History of Social function 2020-11-15 00:00:00 2020-11-15 00:00:[address] [facility] Cigarettes smoked current (pack per day) - Reported 2019-11-17 00:00:00 2019-11-17 00:00:[address] [facility] Cigarette pack-years 2019-11-17 00:00:00 2019-11-17 00:00:[address] [facility] Tobacco use and exposure 2019-11-17 00:00:00 2019-11-17 00:00:00 Smokeless tobacco non-user [facility] Alcohol intake 2019-11-17 00:00:00 2019-11-17 00:00:00 Current non-drinker of alcohol (finding) [facility] History SDOH Alcohol Frequency 2019-11-17 00:00:00 2019-11-17 00:00:[address] [facility] History of tobacco use 2019-03-05 00:00:[address] [facility] Sex Assigned At 1995 00:00:00 1995 00:00:[address] [facility] Smoking Status Start Date Stop Date Source Smokes tobacco daily 2019-11-17 00:00:[address] [facility] Medications Ordered Medication Name Filled Medication Name Start Date Stop Date Current Medication? Ordering Clinician Indication Dosage Frequency Signature (SIG) Comments Components Source Suboxone 12 mg-3 mg sublingual film - 00:00: 00 Yes 1mg Anirudh F Ramana Suboxone 8 mg-2 mg sublingual film 0 4- 00:00: 00 Yes 1mg Anirudh F Ramana Suboxone 12 mg-3 mg sublingual film 0 3- 00:00: 00 Yes 1mg Anirudh F Ramana Suboxone 8 mg-2 mg sublingual film 0 3- 00:00: 00 Yes 1mg Anirudh F Ramana Suboxone 12 mg-3 mg sublingual film 0 2-08 00:00: 00 Yes mg Anirudh F Ramana Suboxone 8 mg-2 mg sublingual film 2-08 00:00: 00 Yes mg Anirudh Boles TAKE ONE FILM SUBLINGUAL DAILY 2022-05 2-14 00:00: 00 08-21 00:00 :00 No 123 Anirudh Boles BUPREN/NALO X MIS 12-3MG 2022-05 1-17 00:00: 00 Yes Anirudh Boles BUPREN/NALO X MIS 8-2MG 2022-05 1-17 00:00: 00 Yes Anirudh oBles 1 STRIP SL BID 2022-05 0-20 00:00: 00 08-21 00:00 :00 No 82 Anirudh Boles TAKE ONE FILM SUBLINGUAL DAILY 2022-05 0-20 00:00: 00 08-21 00:00 :00 No 123 Anirudh Boles TAKE ONE (1) FILM BY MOUTH. 9- 00:00: 00 Yes Anirudh Boles TAKE 1 [...] APPLY SPARINGLY TO AFFECTED AREA(S) TWICE DAILY -21 00:00: 00 08-21 00:00 :00 No 2 Anirudh Boles APPLY SPARINGLY AND MASSAGE IN TWICE DAILY. 2023-0 4-21 00:00: 00 08-21 00:00 :00 No 1 Anirudh Boles SUBOXONE MIS 8-2MG 3-06 00:00: 00 Yes Anirudh Boles METRONIDAZO LE 500MG TABLETS 2-08 00:00: 00 Yes Anirudh Boles MEDROXYPROG ESTERONE 150MG/ML VIAL 2-08 00:00: 00 Yes Anirudh Boles MEDROXYPROG ESTERONE 150MG/ML VIAL 2021-05 1-07 00:00: 00 Yes Anirudh Boles SUBOXONE MIS 8-2MG 6- 00:00: 00 Yes Anirudh Boles SUBOXONE MIS 8-2MG 5- 00:00: 00 Yes Anirudh Boles medroxyPROG ESTERone (DEPO-PROVE RA) injection 150 mg 5- 19:45: 00 05-14 20:44 :[id number] [facility] ampicillin 500 mg capsule - 00:00: 00 08-14 04:59 :00 No [id number] 500mg Take 1 capsule by mouth 4 (four) times daily for 10 days. [facility] vitamin w/FA tablet 06-04 00:00: 00 Yes [id number] 09 1{tbl} Take 1 tablet by mouth daily. [facility] vitamin w/FA tablet 06-04 00:00: 00 Yes [id number] 09 1{tbl} Take 1 tablet by mouth daily. [facility] Immunizations Ordered Immunization Name Filled Immunization Name Date Status Comments Source HPV9 HPV9 2021-08-01 00:00:00 Completed Anirudh Boles HPV9 2021-08-01 00:00:[address] [facility] HPV9 2021-08-01 00:00:[address] [facility] HPV9 2021-08-01 00:00:[address] [facility] HPV9 2021-08-01 00:00:[address] [facility] HPV9 2021-08-01 00:00:[address] [facility] TDAP (ADACEL) VACCINE 2021-07-12 00:00:[address] [facility] Influenza Virus Vaccine Quad IM 3+ YRS 2021-07-12 00:00:[address] [facility] HPV9 2021-07-12 00:00:[address] [facility] Tdap Tdap 2021-04-26 00:00:00 Completed Anirudh Boles TDAP 2021-04-26 00:00:[address] [facility] TDAP 2021-04-26 00:00:[address] [facility] TDAP 2021-04-26 00:00:[address] [facility] TDAP 2021-04-26 00:00:[address] [facility] TDAP 2021-04-26 00:00:[address] [facility] TDAP (ADACEL) VACCINE 2021-04-11 00:00:[address] [facility] Influenza Virus Vaccine Quad IM 3+ YRS 2021-04-11 00:00:[address] [facility] HPV9 2021-04-11 00:00:[address] [facility] TDAP (ADACEL) VACCINE 2020-04-21 00:00:[address] [facility] Influenza Virus Vaccine Quad IM 3+ YRS 2020-04-21 00:00:[address] [facility] HPV9 2020-04-21 00:00:[address] [facility] TDAP (ADACEL) VACCINE 2019-07-22 00:00:[address] [facility] TDAP (ADACEL) VACCINE 2019-07-22 00:00:[address] [facility] TDAP (ADACEL) VACCINE 2019-07-22 00:00:[address] [facility] TDAP (ADACEL) VACCINE 2019-07-22 00:00:[address] [facility] TDAP (ADACEL) VACCINE 2019-07-22 00:00:[address] [facility] HPV9 2017-11-03 00:00:[address] [facility] HPV9 2017-11-03 00:00:[address] [facility] HPV9 2017-11-03 00:00:[address] [facility] HPV9 2017-11-03 00:00:[address] [facility] HPV9 2017-11-03 00:00:[address] [facility] TDAP 2017-07-01 00:00:[address] [facility] TDAP 2017-07-01 00:00:[address] [facility] TDAP 2017-07-01 00:00:[address] [facility] TDAP 2017-07-01 00:00:[address] [facility] TDAP 2017-07-01 00:00:[address] [facility] Influenza Virus Vaccine Quad IM 3+ YRS 2017-02-06 00:00:[address] [facility] Influenza Virus Vaccine Quad IM 3+ YRS 2017-02-06 00:00:[address] [facility] Influenza Virus Vaccine Quad IM 3+ YRS 2017-02-06 00:00:[address] [facility] Influenza Virus Vaccine Quad IM 3+ YRS 2017-02-06 00:00:[address] [facility] Influenza Virus Vaccine Quad IM 3+ YRS 2017-02-06 00:00:[address] [facility] TDAP (ADACEL) VACCINE 2015-09-03 00:00:[address] [facility] TDAP (ADACEL) VACCINE 2015-09-03 00:00:[address] [facility] TDAP (ADACEL) VACCINE 2015-09-03 00:00:[address] [facility] TDAP (ADACEL) VACCINE 2015-09-03 00:00:[address] [facility] TDAP (ADACEL) VACCINE 2015-09-03 00:00:[address] [facility] Vital Signs Vital Name Observation Time Observation Value Comments S ource Systolic blood pressure 2021-11-27 18:03:00 112 mm[Hg] [facility] Diastolic blood pressure 2021-11-27 18:03:00 64 mm[Hg] [facility] Heart rate 2021-11-27 18:03:00 81 /min [facility] Body temperature 2021-11-27 18:03:[address] [facility] Respiratory rate 2021-11-27 18:03:00 16 /min [facility] Body height 2021-11-27 18:03:00 170.2 cm [facility] Body weight 2021-11-27 18:03:00 72.439 kg [facility] BMI 2021-11-27 18:03:00 25.01 kg/m2 [facility] Systolic blood pressure 2021-09-04 18:29:00 124 mm[Hg] [facility] Diastolic blood pressure 2021-09-04 18:29:00 71 mm[Hg] [facility] Heart rate 2021-09-04 18:29:00 75 /min [facility] Body temperature 2021-09-04 18:29:[address] [facility] Respiratory rate 2021-09-04 18:29:00 16 /min [facility] Body height 2021-09-04 18:29:00 170.2 cm [facility] Body weight 2021-09-04 18:29:00 68.811 kg [facility] BMI 2021-09-04 18:29:00 23.76 kg/m2 [facility] BP Systolic 2023-08-22 13:30:00 120 mm[Hg] Step hen F Ramana BP Diastolic 2023-08-22 13:30:00 82 mm[Hg] Thierry phen F Ramana Weight Measured 2023-08-22 13:30:00 179.00 pounds Anirudh F Ramana Height Measured 2023-08-22 13:30:00 68.00 inches Anirudh F [facility] Body Temperature 2023-08-22 13:30:00 97.90 degrees Anirudh [...] 2023-05-14 14:28:00 19.00 /min Anirudh F Ramana Respiratory Rate 2023-04-16 13:13:00 18.00 /min Anirudh F Ramana BP Systolic 2023-04-16 13:13:00 110 mm[Hg] Step hen F Ramana BP Diastolic 2023-04-16 13:13:00 70 mm[Hg] Thierry phen F Ramana Weight Measured 2023-04-16 13:13:00 184.00 pounds Anirudh F Ramana Height Measured 2023-04-16 13:13:00 68.00 inches Anirudh F Ramana Body Temperature 2023-04-16 13:13:00 97.10 degrees Anirudh F Ramana Heart Rate 2023-04-16 13:13:00 70.00 /min Marlene en F Ramana BP Systolic 2023-03-21 10:21:00 113 mm[Hg] Step hen F Ramana BP Diastolic 2023-03-21 10:21:00 70 mm[Hg] Thierry phen F Ramana Weight Measured 2023-03-21 10:21:00 181.00 pounds Anirudh F Ramana Height Measured 2023-03-21 10:21:00 68.00 inches Anirudh F Ramana Body Temperature 2023-03-21 10:21:00 98.20 degrees Anirudh F Ramana Heart Rate 2023-03-21 10:21:00 85.00 /min Marlene en F Ramana Respiratory Rate 2023-03-21 10:21:00 19.00 /min Anirudh F Ramana BP Systolic 2023-02-21 10:29:00 128 mm[Hg] Step hen F Ramana BP Diastolic 2023-02-21 10:29:00 72 mm[Hg] Thierry phen F Ramana Weight Measured 2023-02-21 10:29:00 179.40 pounds Anirudh F Ramana Height Measured 2023-02-21 10:29:00 68.00 inches Anirudh F Ramana Body Temperature 2023-02-21 10:29:00 98.30 degrees Nairudh F Ramana Heart Rate 2023-02-21 10:29:00 58.00 /min Marlene en F Ramana Respiratory Rate 2023-02-21 10:29:00 Anirudh F Ramana BP Systolic 2023-01-31 17:21:00 111 mm[Hg] Step hen F Ramana BP Diastolic 2023-01-31 17:21:00 69 mm[Hg] Thierry phen Hugo Boles Weight Measured 2023-01-31 17:21:00 178.80 pounds Anirudh Boles Height Measured 2023-01-31 17:21:00 68.00 inches Anirudh Boles Body Temperature 2023-01-31 17:21:00 98.30 degrees Anirudh Boles Heart Rate 2023-01-31 17:21:00 65.00 /min Marlene en Hugo Boles Respiratory Rate 2023-01-31 17:21:00 Anirudh Boles BP Systolic 2023-01-15 14:14:00 130 mm[Hg] Ryan hen Hugo Boles BP Diastolic 2023-01-15 14:14:00 83 mm[Hg] Thierry phen Hugo Boles Weight Measured 2023-01-15 14:14:00 180.00 pounds Anirudh Boles Height Measured 2023-01-15 14:14:00 68.00 inches Anirudh Boles Body Temperature 2023-01-15 14:14:00 98.10 degrees Anirudh Boles Heart Rate 2023-01-15 14:14:00 56.00 /min Marlene en Hugo Boles Respiratory Rate 2023-01-15 14:14:00 Anirudh Boles Encounters Start Date/Time End Date/Time Encounter Type Admission Type Attending [facility] Care Facility Care Department Encounter ID Source 2021-07-06 16:01:57 Outpatient QUENTIN RAMIRES [facility] 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 [id number] [facility] 2021-03-04 14:10:24 Emergency [facility] [id number] [facility] 2021-03-01 19:41:40 Outpatient [facility] [id number] [facility] 2024-07-26 13:22:35 2024-07-26 13:22:35 Outpatient S[facility] SFA [id number] Anirudh Boles 2024-06-28 16:06:49 2024-06-28 16:06:49 Outpatient SFA SFA [id number] Anirudh Boles 2024-01-13 14:08:23 2024-01-13 14:08:23 Outpatient SFA SFA [id number] Anirudh Boles 2023-10-23 15:31:32 2023-10-23 15:31:32 Outpatient SFA SFA [id number] Anirudh Boles 2023-09-27 12:28:20 2023-09-27 12:28:20 Outpatient SFA SFA [id number] Anirudh Boles 2023-08-22 13:28:58 2023-08-22 13:28:58 Outpatient SFA SFA [id number] Anirudh Boles 2023-08-22 00:00:00 2023-08-22 00:00:00 Outpatient Visit SFA [id number] Anirudh Boles 2023-08-04 17:16:09 2023-08-04 17:16:09 Outpatient SFA SFA [id number] Anirudh Boles 2023-07-09 13:08:59 2023-07-09 13:08:59 Outpatient SFA SFA [id number] Anirudh Boles 2023-06-12 15:00:57 2023-06-12 15:00:57 Outpatient SFA SFA [id number] Anirudh Boles 2023-05-14 14:23:55 2023-05-14 14:23:55 Outpatient SFA SFA [id number] Anirudh Boles 2023-04-16 14:22:55 2023-04-16 14:22:55 Outpatient SFA SFA [id number] Anirudh Boles 2023-03-21 10:18:15 2023-03-21 10:18:15 Outpatient SFA SFA [id number] Anirudh Boles 2023-02-21 10:21:33 2023-02-21 10:21:33 Outpatient SFA SFA [id number] Anirudh Boles 2023-01-31 17:16:40 2023-01-31 17:16:40 Outpatient SFA SFA [id number] Anirudh Boles 2023-01-15 14:10:23 2023-01-15 14:10:23 Outpatient SFA SFA [id number] Anirudh Boles 2022-09-06 16:08:13 2022-09-06 16:08:13 Outpatient SFA SFA [id number] Anirudh Boles 2022-08-23 15:36:28 2022-08-23 15:36:28 Outpatient [facility] [id number] Anirudh Boles 2022-03-15 13:30:00 2022-03-15 13:30:00 Outpatient HANNAH DOUGLAS [facility] [id number] [facility] 2022-02-19 13:00:00 2022-02-19 13:00:00 Outpatient R HANNAH TEMPLETON [facility] [id number] [facility] 2021-12-03 13:00:00 2021-12-03 13:00:00 Outpatient HANNAH DOUGLAS [facility] [id number] [facility] 2021-11-27 13:00:00 2021-11-27 13:04:09 Nurse Visit Visit, Arnaldo-Rmchp Nurse Hannah Templeton [facility] GAMBLING CASHIER [facility] MATERNAL & CHILD HEALTH [facility] [id number] [id number] [id number] [id number] [facility] 2021-11-27 13:00:00 2021-11-27 13:00:00 Outpatient R HANNAH TEMPLETON [facility] [id number] [facility] 2021-11-01 10:30:00 2021-11-01 10:30:00 Outpatient R [facility] [id number] [facility] 2021-11-01 10:30:00 2021-11-01 10:30:00 Outpatient R HANNAH TEMPLETON [facility] [id number] [facility] 2021-10-24 10:30:00 2021-10-24 10:30:00 Outpatient R [facility] [id number] [facility] 2021-09-04 13:30:00 2021-09-04 13:36:35 Outpatient R HANANH TEMPLETON [facility] [id number] [facility] 2021-09-04 13:30:00 2021-09-04 13:36:35 Nurse Visit Visit, Ang-Rmchp Nurse Hannah Templeton [facility] GAMBLING CASHIER [facility] & CHILD [facility] [id number] 350.1.13.10 4.2.7.2.686 [id number] [facility] 2021-08-31 13:00:00 2021-08-31 13:00:00 [id number] 2021-08-30 00:00:00 2021-08-30 00:00:00 Telephone Hannah Templeton GAMBLING CASHIER [facility] CHILD [facility] [id number] [id number] [id number] [id number] [facility] 2021-08-06 00:00:00 2021-08-06 00:00:00 Telephone Hannah Templeton [facility] GAMBLING CASHIER [facility] CHILD [facility] [id number] 350.1.13.10 4.2.7.2.686 [id number] [facility] 2021-08-03 00:00:00 2021-08-03 00:00:00 Telephone Hannah Templeton GAMBLING CASHIER [facility] CHILD [facility] [id number] [id number] [id number] [id number] [facility] 2021-08-01 13:00:00 2021-08-01 13:52:05 Office Visit Hannah Templeton [facility] GAMBLING CASHIER [facility] & CHILD [facility] [id number] 350.1.13.10 4.2.7.2.686 [id number] [facility] 2021-08-01 13:00:00 2021-08-01 13:52:05 Outpatient R HANNAH TEMPLETON [facility] [id number] [facility] 2021-08-01 13:00:00 2021-08-01 13:52:05 Outpatient R HANNAH TEMPLETON [facility] [id number] [facility] 2021-08-01 13:00:00 2021-08-01 13:00:00 Outpatient R HANNAH TEMPLETON [facility] [id number] [facility] 2021-08-01 00:00:00 2021-08-01 00:00:00 Orders Only Doctor Unassigned, [place] [facility] 1..840.114 350.1.13.10 4.2.7.2.686 [id number] [facility] 2021-07-31 00:00:00 2021-07-31 00:00:00 Telephone Dean Edwards [facility] GAMBLING CASHIER [facility] MATERNAL & CHILD HEALTH [facility] 1..840.114 350.1.13.10 4.2.7.2.686 [id number] [facility] 2021-07-24 13:30:00 2021-07-24 13:30:00 Outpatient OC RAMIRESN [facility] [id number] [facility] 2021-07-24 13:30:00 2021-07-24 13:30:00 Outpatient QUENTIN RAMIRES [facility] [id number] [facility] 2021-07-12 00:00:00 2021-07-12 00:00:00 Patient Secure Msg Doctor Unassigned, [place] [facility] ..840.114 350.1.13.10 4.2.7.2.686 [id number] [facility] 2021-07-11 09:30:00 2021-07-11 09:30:00 Outpatient R [facility] [id number] [facility] 2021-07-05 13:30:00 2021-07-05 14:57:22 Outpatient R QUENTIN PRETTY [facility] [id number] [facility] 2021-07-05 13:30:00 2021-07-05 14:57:22 Office Visit Quentin Pretty [facility] 1.2840.114 350.1.13.10 4.2.7.2.686 [id number] [facility] 2021-07-05 13:30:00 2021-07-05 13:30:00 Outpatient R QUENTIN PRETTY [facility] [id number] [facility] 2021-06-06 00:00:00 2021-06-06 00:00:00 Telephone Dean Edwards [facility] GAMBLING CASHIER [facility] MATERNAL & CHILD HEALTH [facility] 1.0.114 350.1.13.10 [id number] [id number] [facility] 2021-06-02 14:04:00 2021-06-04 14:20:00 Inpatient P QUENTIN PRETTY [facility] [id number] [facility] 2021-06-02 14:04:00 2021-06-04 14:20:00 Hospital Encounter Quentin Pretty [facility] 1.0.114 350.1.13.10 4.2.7.2.686 [id number] [facility] 2021-06-04 10:15:00 2021-06-04 10:15:00 Outpatient R DEAN EDWARDS [facility] [id number] [facility] 2021-06-02 19:42:00 2021-06-03 10:10:00 Anesthesia Event Jonh Rodriguez [facility] [id number] 350.1.13.10 4.2.7.2.686 [id number] [facility] 2021-06-02 14:04:00 2021-06-02 14:04:00 Inpatient P QUENTIN PRETTY [facility] GUDELIA [id number] [facility] 2021-05-30 13:30:00 2021-05-30 13:30:00 Outpatient R HANNAH TEMPLETON [facility] [id number] [facility] 2021-05-30 13:30:00 2021-05-30 13:30:00 Business Supervisor [facility] GAM[facility] MATERNAL & CHILD HEALTH [facility] [id number] 107 [id number] [facility] 2021-05-29 00:00:00 2021-05-29 00:00:00 Telephone Dean Edwards [facility] G[facility] & CHILD [facility] [id number] 107 [id number] [facility] 2021-05-28 09:30:00 2021-05-28 11:09:26 Routine Visit Dean Edwards [facility] [id number] 107 [id number] [facility] 2021-05-28 09:30:00 2021-05-28 11:09:26 Outpatient R DEAN EDWARDS [facility] [id number] [facility] 2021-05-28 09:30:00 2021-05-28 09:30:00 Outpatient DEAN ROSEN [facility] [id number] [facility] 2021-05-25 08:15:00 2021-05-25 08:15:00 Outpatient DEAN ROSEN [facility] [id number] [facility] 2021-05-10 09:30:00 2021-05-10 09:49:03 Outpatient DEAN ROSEN [facility] [id number] [facility] 2021-05-10 09:30:00 2021-05-10 09:49:03 Routine Visit Dean Edwards [facility] CASHIER [facility] MATERNAL & CHILD [facility] 1.840.114 350.1.13.10 4.2.7.2.686 [id number] [facility] 2021-05-10 09:30:00 2021-05-10 09:49:03 Outpatient R DEAN EDWARDS [facility] [id number] [facility] 2021-04-29 00:00:00 2021-04-29 00:00:00 Telephone Vi Mccarthy [facility]IER [facility] MATERNAL & CHILD [facility] 1.840.114 350.1.13.10 4.2.7.2.686 [id number] [facility] 2021-04-26 09:30:00 2021-04-26 10:29:45 Outpatient R DEAN EDWARDS [facility] [id number] [facility] 2021-04-26 09:30:00 2021-04-26 10:29:45 Routine Visit Dean Edwards [facility] GAMBLING CASHIER [facility] & CHILD [facility] 1.840.114 350.1.13.10 4.2.7.2.686 [id number] 107 [id number] [facility] 2021-04-26 00:00:00 2021-04-26 00:00:00 Orders Only Doctor Unassigned, [place] [facility] 1.84.114 350.1.13.10 4.2.7.2.686 [id number] [facility] 2021-04-11 00:00:00 2021-04-11 00:00:00 Telephone Eloina Black [facility] & CHILD [facility] ..114 350.1.13.10 4.2.7.2.686 [id number] 107 [id number] [facility] 2021-04-11 00:00:00 2021-04-11 00:00:00 Patient Secure Msg Doctor Unassigned, [place] [facility] MATERNAL & CHILD [facility] ..114 350.1.13.10 4.2.7.2.686 [id number] [facility] 2021-04-05 11:00:00 2021-04-05 11:00:00 Outpatient ELOINA PINEDO [facility] [id number] [facility] 2021-04-03 10:45:00 2021-04-03 10:45:00 Outpatient VI CHAMPAGNE [facility] [id number] [facility] 2021-03-08 10:00:00 2021-03-08 10:00:00 Outpatient ELOINA PINEDO [facility] [id number] [facility] 2021-02-20 14:12:42 2021-02-20 15:12:42 Business Supervisor Visit Ultrasound, Crescencio Nunes [facility] GAMBLING CASHIER [facility] CHILD [facility] ..114 350.1.13.10 4.2.7.2.686 [id number] [facility] 2021-02-20 14:30:00 2021-02-20 14:30:00 Outpatient P [facility] [id number] [facility] 2021-02-07 14:04:59 2021-02-07 14:41:49 Routine Visit Provider, Vi Jones [facility] & CHILD [facility] ..114 350.1.13.10 4.2.7.2.686 [id number] [facility] 2021-02-07 14:00:00 2021-02-07 14:00:00 Outpatient R [facility] [id number] [facility] 2021-01-18 00:00:00 2021-01-18 00:00:00 Orders Only Doctor Unassigned, [place] [facility] 1.2.840.114 350.1.13.10 4.2.7.2.686 [id number] [facility] 2021-01-11 00:00:00 2021-01-11 00:00:00 Telephone Dean Edwards [facility] G[facility] C[facility]IER [facility] MATERNAL & CHILD [facility] 1.2.840.114 350.1.13.10 4.2.7.2.686 [id number] 107 [id number] [facility] 2021-01-10 12:45:09 2021-01-10 13:15:32 Routine Visit Dean Edwards [facility] G[facility] CASHIER [facility] & CHILD [facility] 1.2.840.114 350.1.13.10 4.2.7.2.686 [id number] [facility] 2021-01-10 12:45:09 2021-01-10 13:15:32 Routine Visit Dean Edwards [facility] G[facility] C[facility]IER [facility] & CHILD [facility] 1.2.840.114 350.1.13.10 4.2.7.2.686 [id number] [facility] 2021-01-10 12:45:00 2021-01-10 12:45:00 Outpatient R DEAN EDWARDS [facility] [id number] [facility] 2020-12-13 11:01:23 2020-12-13 11:16:23 Routine Visit Dean Edwards [facility] GAMBLING CASHIER [facility] & CHILD [facility] 1.2.840.114 350.1.13.10 4.2.7.2.686 [id number] 107 [id number] [facility] 2020-12-13 11:00:00 2020-12-13 11:00:00 Outpatient R DEAN EDWARDS [facility] [id number] [facility] 2020-12-05 00:00:00 2020-12-05 00:00:00 Abstract Dean Edwards [facility] GAMBLING CASHIER [facility] & CHILD [facility] 1.2.840.114 350.1.13.10 4.2.7.2.686 [id number] 107 [id number] [facility] 2020-12-04 11:22:05 2020-12-04 11:52:05 Business Supervisor Visit Ultrasound, Regino Lea [facility] GAMBLING CASHIER [facility] MATERNAL & CHILD [facility] 1..840.114 350.1.13.10 4.2.7.2.686 [id number] [facility] 2020-12-04 11:00:00 2020-12-04 11:00:00 Outpatient P [facility] [id number] [facility] 2020-11-20 00:00:00 2020-11-20 00:00:00 Telephone Dean Edwards [facility] G[facility] CASHIER [facility] MATERNAL & CHILD [facility] 1.2.840.114 350.1.13.10 4.2.7.2.686 [id number] [facility] 2020-11-15 12:58:11 2020-11-15 13:45:00 Initial Visit Dean Edwards [facility] GAMBL[facility] CASHIER [facility] & CHILD [facility] 1.2.84.114 350.1.13.10 4.2.7.2.686 [id number] [facility] 2020-11-15 12:45:00 2020-11-15 12:45:00 Outpatient R [facility] [id number] [facility] 2020-11-15 00:00:00 2020-11-15 00:00:00 Orders Only Doctor Unassigned, [place] [facility] 1.84.114 350.1.13.10 4.2.7.2.686 [id number] [facility] 2020-09-05 10:00:00 2020-09-05 10:00:00 Outpatient R ELOINA BLACK [facility] [id number] [facility] 2020-08-29 14:30:00 2020-08-29 14:30:00 Outpatient R [facility] [id number] [facility] 2020-08-22 15:08:00 2020-08-22 16:43:00 Emergency Quentin Albrecht R [facility] 1.840.114 350.1.13.10 4.2.7.2.686 [id number] [facility] 2020-08-22 09:45:00 2020-08-22 09:45:00 Outpatient R [facility] [id number] [facility] 2020-08-21 18:40:00 2020-08-21 18:40:00 Outpatient R ERIC PATEL [facility] [id number] [facility] 2020-08-17 00:00:00 2020-08-17 00:00:00 Telephone Hannah Templeton [facility] G[facility] CASHIER [facility] & CHILD [facility] 1.840.114 350.1.13.10 4.2.7.2.686 [id number] 107 [id number] [facility] 2020-08-16 00:00:00 2020-08-16 00:00:00 Telephone Hannah Templeton [facility] G[facility]BLING CASHIER [facility] & CHILD [facility] 1..840.114 350.1.13.10 4.2.7.2.686 [id number] [facility] 2020-08-16 00:00:00 2020-08-16 00:00:00 Telephone Eloina Black [facility] G[facility]BLING CASHIER [facility] & CHILD [facility] 1.2.840.114 350.1.13.10 4.2.7.2.686 [id number] 107 [id number] [facility] 2020-08-15 14:30:00 2020-08-15 14:30:00 Outpatient ELVIN MENDEZ [facility] [id number] [facility] 2020-08-15 11:17:00 2020-08-15 11:47:22 Routine Visit Hannah Templeton Emily N [facility] G[facility] CASHIER [facility] & CHILD [facility] 1.2.840.114 350.1.13.10 4.2.7.2.686 [id number] 107 [id number] [facility] 2020-08-15 11:00:00 2020-08-15 11:00:00 Outpatient ELOINA PINEDO [facility] [id number] [facility] 2020-08-14 00:00:00 2020-08-14 00:00:00 Telephone Eloina Black [facility] G[facility]BLING CASHIER [facility] & CHILD [facility] 1.2.840.114 350.1.13.10 4.2.7.2.686 [id number] [facility] 2020-08-10 10:45:00 2020-08-10 10:45:00 Outpatient ELOINA PINEDO [facility] [id number] [facility] 2020-08-08 15:30:00 2020-08-08 15:30:00 Outpatient Ad [facility] [id number] [facility] 2020-08-08 14:30:00 2020-08-08 14:30:00 Outpatient Ad [facility] [id number] [facility] 2020-08-03 11:33:07 2020-08-03 11:53:07 Laboratory Only Lab, Adc Fam Deepa Mcclendon [facility] Professio nal Office [facility] [address] ..840.114 350.1.13.10 4.2.7.2.686 [id number] [facility] 2020-08-03 11:40:00 2020-08-03 11:40:00 Outpatient R DEEPA SPENCE [facility] [id number] [facility] 2020-08-01 09:58:49 2020-08-01 10:45:23 Routine Visit Trimester, [facility] Res-1st Elvin Green [facility] .840.114 350.1.13.10 4.2.7.2.686 [id number] [facility] 2020-08-01 09:30:00 2020-08-01 09:30:00 Outpatient R [facility] [id number] [facility] 2020-07-31 09:00:00 2020-07-31 09:00:00 Outpatient R [facility] [id number] [facility] 2020-07-27 00:00:00 2020-07-27 00:00:00 Telephone Dean Edwards [facility] GAMBLING CASHIER [facility] MATERNAL & CHILD HEALTH [facility] 1..840.114 350.1.13.10 4.2.7.2.686 [id number] 107 [id number] [facility] 2020-07-26 13:06:20 2020-07-26 14:21:08 Initial Visit Eloina Black [facility] GAMBLING CASHIER [facility] MATERNAL & CHILD HEALTH [facility] 1..840.114 350.1.13.10 4.2.7.2.686 [id number] [facility] 2020-07-26 13:00:00 2020-07-26 13:00:00 Outpatient R ELOINA BLACK [facility] [id number] [facility] 2020-07-26 00:00:00 2020-07-26 00:00:00 Orders Only Doctor Unassigned, [place] [facility] 1.2.840.114 350.1.13.10 4.2.7.2.686 [id number] [facility] 2020-07-25 14:00:00 2020-07-25 14:00:00 Outpatient DEAN ROSEN [facility] [id number] [facility] 2020-07-25 00:00:00 2020-07-25 00:00:00 Patient Outreach Mikey Willam Sarthak [facility] 1.2.840.114 350.1.13.10 4.2.7.2.686 [id number] [facility] 2020-07-20 14:00:00 2020-07-20 14:00:00 Outpatient ELOINA PINEDO [facility] [id number] [facility] 2020-04-21 00:00:00 2020-04-21 00:00:00 Patient Secure Msg Doctor Unassigned, [place] [facility] 1.2.840.114 350.1.13.10 4.2.7.2.686 [id number] [facility] 2020-02-15 11:00:00 2020-02-15 11:00:00 Outpatient DEAN ROSEN [facility] [id number] [facility] 2020-02-09 13:00:00 2020-02-09 13:00:00 Outpatient DEAN ROSEN [facility] [id number] [facility] 2019-11-17 14:04:29 2019-11-17 16:36:30 Office Visit Dean Edwards [facility] GAMBLING CASHIER [facility] MATERNAL & CHILD [facility] 1.2.840.114 350.1.13.10 4.2.7.2.686 [id number] [facility] 2019-11-17 14:04:29 2019-11-17 16:36:30 Office Visit Daen Edwards [facility] GAMBLING CASHIER [facility] MATERNAL & CHILD HEALTH [facility] 1..840.114 350.1.13.10 4.2.7.2.686 [id number] 2019-11-17 13:45:00 2019-11-17 13:45:00 Outpatient DEAN ROSEN [facility] [id number] [facility] 2019-10-21 15:45:00 2019-10-21 15:45:00 Outpatient R DEAN EDWARDS [facility] [id number] [facility] 2019-09-30 07:26:37 2019-09-30 10:46:56 Telemedici ne Visit Dean Edwards [facility] GAMBLING CASHIER [facility] MATERNAL & CHILD [facility] 1..840.114 350.1.13.10 4.2.7.2.686 [id number] 107 [id number] [facility] 2019-09-30 09:45:00 2019-09-30 09:45:00 Outpatient DEAN ROSEN [facility] [id number] [facility] 2019-09-28 00:00:00 2019-09-28 00:00:00 Telephone Dean Edwards [facility] GAMBLING CASHIER [facility] MATERNAL & CHILD [facility] 1..840.114 350.1.13.10 4.2.7.2.686 [id number] [facility] 2019-09-13 15:00:00 2019-09-13 15:00:00 Outpatient DEAN ROSEN [facility] [id number] [facility] 2019-09-13 00:00:00 2019-09-13 00:00:00 Telephone Dean Edwards [facility] GAMBLING CASHIER [facility] & CHILD [facility] 1.2.840.114 350.1.13.10 4.2.7.2.686 [id number] 107 [id number] [facility] 2019-09-10 00:00:00 2019-09-10 00:00:00 Telephone Hannah Templeton [facility] GAMBLING CASHIER [facility] & CHILD [facility] 1.2.840.114 350.1.13.10 4.2.7.2.686 [id number] [facility] 2019-09-08 13:00:00 2019-09-08 13:00:00 Outpatient R DEAN EDWARDS [facility] [id number] [facility] 2019-09-03 21:41:00 2019-09-05 12:22:00 Hospital Encounter RemyArmin [facility] 1.2.840.114 350.1.13.10 4.2.7.2.686 [id number] [facility] 2019-09-03 00:00:00 2019-09-03 00:00:00 Telephone Hannah Templeton [facility] G[facility]BLING CASHIER [facility] & CHILD [facility] 1.2.840.114 350.1.13.10 4.2.7.2.686 [id number] 107 [id number] [facility] 2019-09-01 11:04:48 2019-09-01 12:49:48 Routine Visit Dean Edwards [facility] GAMBLING CASHIER [facility] & CHILD [facility] 1.2.840.114 350.1.13.10 4.2.7.2.686 [id number] [facility] 2019-09-01 10:45:00 2019-09-01 10:45:00 Outpatient Ad DEAN EDWARDS [facility] [id number] [facility] 2019-08-26 00:00:00 2019-08-26 00:00:00 Telephone EdwardsDean [facility] GAMBLING CASHIER [facility] CHILD [facility] 1.2.840.114 350.1.13.10 4.2.7.2.686 [id number] 107 [id number] [facility] 2019-08-25 09:12:32 2019-08-25 10:15:17 Routine Visit Dean Edwards [facility] GAMBLING CASHIER [facility] MATERNAL & CHILD HEALTH [facility] 1.2.840.114 350.1.13.10 4.2.7.2.686 [id number] 107 [id number] [facility] 2019-08-25 09:00:00 2019-08-25 09:00:00 Outpatient R DEAN EDWARDS [facility] [id number] [facility] 2019-08-17 15:22:17 2019-08-17 16:16:48 Routine Visit Hannah Templeton [facility] GAMBLING CASHIER [facility] MATERNAL & CHILD [facility] 1.2.840.114 350.1.13.10 4.2.7.2.686 [id number] [facility] 2019-08-17 14:45:00 2019-08-17 14:45:00 Outpatient R HANNAH TEMPLETON [facility] [id number] [facility] 2019-08-17 00:00:00 2019-08-17 00:00:00 Telephone Hannah Templeton [facility] GAMBLING CASHIER [facility] MATERNAL & CHILD [facility] 1.2.840.114 350.1.13.10 4.2.7.2.686 [id number] [facility] 2019-08-12 13:55:40 2019-08-12 14:03:43 Telemedici ne Visit Dean Edwards [facility] GAMBLING CASHIER [facility] & CHILD [facility] 1.2.840.114 350.1.13.10 4.2.7.2.686 [id number] [facility] 2019-08-12 13:45:00 2019-08-12 13:45:00 Outpatient DEAN ROSEN [facility] [id number] [facility] 2019-08-05 10:30:00 2019-08-05 10:30:00 Outpatient DEAN ROSEN [facility] [id number] [facility] 2019-08-05 00:00:00 2019-08-05 00:00:00 Telephone Dean Edwards [facility] G[facility]BL[facility] CASHIER [facility] & CHILD [facility] 1.2840.114 350.1.13.10 4.2.7.2.686 [id number] 107 [id number] [facility] 2019-07-23 00:00:00 2019-07-23 00:00:00 Telephone Hannah Templeton [facility] G[facility]BLING CASHIER [facility] CHILD [facility] 1.2840.114 350.1.13.10 4.2.7.2.686 [id number] 107 [id number] [facility] 2019-07-22 09:16:52 2019-07-22 10:24:47 Routine Visit Hannah Templeton Roshunda R [facility] G[facility] CASHIER [facility] CHILD [facility] 1.840.114 350.1.13.10 4.2.7.2.686 [id number] 107 [id number] [facility] 2019-07-22 09:00:00 2019-07-22 09:00:00 Outpatient R DEAN EDWARDS [facility] [id number] [facility] 2019-07-08 00:00:00 2019-07-08 00:00:00 Telephone Hannah Templeton [facility] G[facility]BLING CASHIER [facility] CHILD [facility] 1.2840.114 350.1.13.10 4.2.7.2.686 [id number] [facility] 2019-06-30 09:45:00 2019-06-30 09:45:00 Outpatient R HANNAH TEMPLETON [facility] [id number] [facility] 2019-06-24 00:00:00 2019-06-24 00:00:00 Letter (Out) Hannah Templeton [facility] 1.2840.114 350.1.13.10 4.2.7.2.686 [id number] [facility] 2019-06-02 00:00:00 2019-06-02 00:00:00 Abstract Hannah Templeton [facility] G[facility]BL[facility] CASHIER [facility] & CHILD [facility] 1.2.840.114 350.1.13.10 4.2.7.2.686 [id number] [facility] 2019-05-18 15:22:47 2019-05-18 16:34:43 Routine Visit Hannah Templeton [facility] 1.2.840.114 350.1.13.10 4.2.7.2.686 [id number] 107 [id number] [facility] Results Test Description Test Time Test Comments Results Result Co mments Source HEPATITIS PANEL, [id number] 04:19:12* Test Item Value Reference Range Interpretation Comme nts HEPATITIS A IgM (test code = 24962) NON-REACTIVE NON-REACTIVE HEPATITIS B CORE IgM (test code = 4644) NON-REACTIVE NON-REACTIVE HEPATITIS B SURF AG (test code = 2739) NON-REACTIVE NON-REACTIVE HEPATITIS C ANTIBODY (test code = 4675) NON-REACTIVE NON-REACTIVE INTERPRETATION HEPATITIS A: (test code = 2552) (NOTE) Hepatitis A sero logy shows no evidence of acute hepatitis A. INTERPRETATION HEPATITIS B: (test code = 10043) (NOTE) Hepatitis B sero logy shows no evidence of acute hepatitis B andno indication of exposure to hepatitis B virus in the previous lalitha eight months. INTERPRETATION HEPATITIS C: (test code = 00124) (NOTE) Hepatitis C sero logy shows no evidence of exposure to hepatitisC virus at this time. It can take up to 12 months after exposure tothe hepatitis C virus for antibodies to become detectable in the blood in certain patients. UNLESS OTHERWISE INDICATED, ALL TESTING PERFORMED AT [facility] [address] [place] [address] 14046 CHIEF DIGITAL MEDIA OFFICER: PARTHA JACKSON M.D. CLIA NUMBER [id number] [place]. [id number] COMPREHENSIVE METABOLIC [id number] 04:07:24* Test Item Value Reference Range Interpretation Comme nts GLUCOSE (test code = 2216) 62 MG/DL 70-99 L BUN (test code = 2207) 9 MG/DL 6-20 CREATININE (test code = 2213) 0.62 MG/DL 0.60-1.30 eGFR (2020 CKD-EPI) (test code = 38846) 125 ML/MIN/1.73 >60 CALC BUN/CREAT (test code = 2234) 15 RATIO 6-28 SODIUM (test code = 2230) 141 MEQ/L 133-146 POTASSIUM (test code = 2227) 3.7 MEQ/L 3.5-5.4 CHLORIDE (test code = 2214) 103 MEQ/L 95-107 CARBON DIOXIDE (test code = 2205) 26 MEQ/L 19-31 CALCIUM (test code = 2208) 8.9 MG/DL 8.5-10.5 PROTEIN, TOTAL (test code = 2228) 6.9 G/DL 6.1-8.3 ALBUMIN (test code = 2200) 4.4 G/DL 3.5-5.2 CALC GLOBULIN (test code = 2239) 2.5 G/DL 1.9-3.7 CALC A/G RATIO (test [...] 10 U/L 5-40 CBC W/AUTO DIFF WITH [id number] 02:05:21* Test Item Value Reference Range Interpretation [...] = 1065) 0.0 /100 WBC'S See_Comment [Automated Integromicsa ge] The system which generated this result [...] 0.00-0.10 ABS NUCLEATED RBCS (test code = 39518) 0.00 K/UL 0.00-0.11 CBC W/AUTO [id number] 00:00:00* Test Item Value Reference Range Interpretation [...] ABS NUCLEATED RBCS (test cod e = 90206) 0.00 K/UL Anirudh BolesCOMPREHENSIVE METABOLIC [id number] 00:00:00* Test Item Value Reference Range Interpretation Comme nts GLUCOSE (test code = 2217) 62 MG/DL BUN (test code = 2208) 9 MG/DL CREATININE (test code = 2214) 0.62 MG/DL eGFR (2020 CKD-EPI) (test code = 67531) 125 ML/MIN/1.73 CALC BUN/CREAT (test code = [...] U/L Anirudh BolesHIV 1/2 4TH GEN, RFLX [id number] 00:00:00* Test Item Value Reference Range Interpretation Comme nts HIV 1/2 4TH GEN, RFLX CONF ( test code = 3514) NON-REACTIVE Anirudh BolesACUTE HEPATITIS [id number] 00:00:00* Test Item Value Reference Range Interpretation Comme nts HEPATITIS A IgM (test code = 80400) NON-REACTIVE HEPATITIS B CORE IgM (test c ode = 4644) NON-REACTIVE HEPATITIS B SURF AG (test co de = 2739) NON-REACTIVE HEPATITIS C ANTIBODY (test c ode = 4675) NON-REACTIVE INTERPRETATION HEPATITIS A: (test code = 2552) (NOTE) INTERPRETATION HEPATITIS B: (test code = 95782) (NOTE) INTERPRETATION HEPATITIS C: (test code = 83682) (NOTE) Anirudh Hugo Ramana Notes Date/Time Note Provider Source Anirudh Boles [facility]
[2024-07-27] MEDS ORDERED: KETOROLAC 30 MG/ML INJ ONE (12:55)
[2024-07-27 13:07] LABS: Absolute Eosinophils 0.3 K/uL (0-0.5); Absolute Lymphocytes (CBC) 1.4 K/uL (0.7-4.9); Absolute Monocytes 0.6 K/uL (0.1-1.3); Absolute Neutrophil 7.3 K/uL (1.8-8.0); Basophils % 0.4 % (0-1.3); Eosinophils % 2.8 % (0-4.4); Hemoglobin 13.1 g/dL (12.0-15.0); Lymphocytes % 14.8 % (15.3-44.8); MCH 29.6 pg (27.0-35.0); MCHC 34.5 g/dL (32.0-36.0); MCV 85.9 fL (80-100); MPV 8.2 fL (7.6-11.3); Monocytes % 6.2 % (3.3-12.3); Neutrophils % 75.8 % (41.7-73.7); Platelets 166 thou/uL (152-406); RBC Red Blood Cell Count 4.42 M/uL (3.86-4.86); Red Cell Distribution Width 12.3 % (12.1-15.2)
[2024-07-27 13:21] LABS: Anion Gap 6.5 mEq/L (5.0-15.0); Potassium 3.5 mEq/L (3.5-5.1)
--- NOTE | 2024-07-27 15:28 | RAD REPORT ---
EXAM: CT Soft Tissue Neck W/Contr INDICATION: [facility] n/a right neck swelling/pain Bed Name: 12 TECHNIQUE: Helical CT examination of the neck with IV contrast. Sagittal and coronal reformations wer e generated. This exam was performed according to our departmental dose-optimization program, which includes automated exposure control, adjustment of the mA and/or kV according to patient size and/or use of iterative reconstruction technique. COMPARISON: None. FINDINGS: Mucosal spaces: Nasopharynx, oropharynx, oral cavity, larynx and hypopharynx are normal. No suspiciou s masses. Epiglottis is normal in configuration. True vocal cords cords are normally situated. Piriform sinuses are well-aerated. Lymph Nodes: Prominent lymph nodes in the right posterior cervical triangle with adjacent swelling an d fat stranding, largest measuring 1.8 x 1.4 cm. Other deep cervical lymph nodes are not pathologically enlarged. Salivary Glands: Unremarkable. Thyroid Gland: Normal Included Intracranial Structures: Normal Included Orbits: Normal Paranasal Sinuses: Predominantly clear Tympanomastoid Cavities: Normal Vascular Structures: Normal Osseous Structures: No acute osseous abnormality. Included Lung Apices: Normal IMPRESSION: Prominent right posterior cervical triangle lymph nodes largest measuring up to 1.8 cm, showing adjac ent fat stranding, could be related to an infectious or inflammatory process. No central suppuration or adjacent fluid collections noted.
--- NOTE | 2024-07-27 15:43 | EDPHYS ---
Physician Documentation [facility] Name: Kimmy Archer Age: 29 yrs Sex: Female : 1995 Arrival Date: 07/27/2024 Time: 12:07 Bed 12 Private MD: ED Physician Rene Chahal HPI: 07/27 13:30 This 29 yrs old Female presents to ER via Ambulatory with complaints of neck swelling. rn 13:30 The patient or guardian complains of pain, swelling. The symptoms are located on the rn Right posterior lateral neck. 13:30 Onset: The symptoms/episode began/occurred 4 day(s) ago. Modifying factors: The rn symptoms are alleviated by nothing. the symptoms are aggravated by movement, pressure. Severity of symptoms: At their worst the symptoms were moderate, in the emergency department the symptoms are unchanged. Patient reports right posterior and lateral neck pain.. 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 - Infectious Disease History:: Denies. - Social history:: Smoking status: Reported history of juuling and/or vaping. - Family history:: not pertinent. - Hospitalizations: : No recent hospitalization is reported. ROS: 13:30 Constitutional: Negative for fever, chills, and weight loss, Neck: Positive for right rn posterior lateral neck swelling and pain Neuro: Negative for headache, weakness, numbness, tingling, and seizure, Exam: 13:30 Constitutional: This is a well developed, well nourished patient who is awake, alert, rn and in no acute distress. Neck: Trachea midline, right posterior lateral area of swelling and tenderness along sternocleidomastoid. No crepitus. No warmth or redness. Skin: White, dry and flaky scalp noted on posterior scalp Neuro: Awake and alert, GCS 15, oriented to person, place, time, and situation. Motor strength 5/5 in all extremities. Sensory grossly intact. Cerebellar exam normal. Normal gait. Vital Signs: 12:25 BP 134 / 79; Pulse 72; Resp 18; Temp 98.2; Pulse Ox 100% ; Weight 83.91 kg; Height 5 iw ft. 8 in. ; Pain 9/10; 12:25 Body Mass Index 28.13 (83.91 kg, 172.72 cm) iw 12:25 Pain Scale: Adult iw MDM: 12:24 Medical Screening Exam initiated rn 15:41 Differential diagnosis: Lymphadenitis, mass. Data reviewed: vital signs, nurses notes, rn radiologic studies, CT scan, and as a result, I will discharge patient. Counseling: I had a detailed discussion with the patient and/or guardian regarding the historical points, exam findings, and any diagnostic results supporting the discharge/admit diagnosis, lab results, radiology results, the need for outpatient follow up, to return to the emergency department if symptoms worsen or persist or if there are any questions or concerns that arise at home. Special discussion: I discussed with the patient/guardian in detail that at this point there is no indication for admission to the hospital. It is understood, however, that if the symptoms persist or worsen the patient needs to return immediately for re-evaluation. Based on the history and exam findings, there is no indication for further emergent testing or inpatient evaluation. I discussed with the patient/guardian the need to see the ENT specialist for further evaluation of the symptoms. 07/27 12:34 Order name: CBC with Diff; Complete Time: 13:30 rn 07/27 12:34 Order name: Basic Metabolic Panel; Complete Time: 13:30 rn 07/27 12:34 Order name: CT Soft Tissue Neck W/contr; Complete Time: 15:32 rn 07/27 12:34 Order name: IV Start; Complete Time: 12:58 rn Administered Medications: 13:03 Drug: Ketorolac IVP 15 mg IVP once Route: IVP; Site: right antecubital; iw 16:02 Follow up: Response: No adverse reaction bp 15:45 Drug: Clindamycin PO 300 mg PO once Route: PO; bp 16:02 Follow up: Response: No adverse reaction bp Disposition Summary: 07/27/24 15:43 Discharge Ordered Notes: Location: Home rn Problem: new rn Symptoms: have improved rn Condition: Stable rn Diagnosis - Acute lymphadenitis of face, head and neck rn Followup: rn - With: Private Physician - When: As needed - Reason: Recheck today's complaints, Re-evaluation by your physician Discharge Instructions: - Discharge Summary Sheet rn - Lymphadenopathy rn Forms: - Medication Reconciliation Form rn - Antibiotic acetylene burner - Prescription Opioid Use rn - Patient Portal Instructions rn - Leadership Thank You Letter rn - Work release form bp Prescriptions: - Clindamycin HCl 300 mg Oral Capsule - take 1 capsule ORAL route every 6 hours for 10 days; 40 capsule; Refills: 0, rn Product Selection Permitted - Tramadol 50 mg Oral Tablet - take 1 tablet ORAL route every 8 hours as needed; 12 tablet; Refills: 0, rn Product Selection Permitted Signatures: Dispatcher [employer] Trinidad Velasco RN RN iw Nieto, Roman, MD MD rn Peltier, Brian, RN RN bp
--- NOTE | 2024-07-27 15:43 | ER ---
Nurse's Notes [facility] Name: Kimmy Archer Age: 29 yrs Sex: Female : 1995 Arrival Date: 07/27/2024 Time: 12:07 Bed 12 Private MD: Diagnosis: Acute lymphadenitis of face, head and neck Presentation: 07/27 12:25 Chief complaint: Patient states: she noticed a knot on right side of her neck about 4 iw days that has continued to get larger and pain 9/10 that radiates up the right side of her face. Coronavirus screen: Vaccine status: Patient reports being unvaccinated. Ebola Screen: No symptoms or risks identified at this time. Initial Sepsis Screen: Does the patient meet any 2 criteria? No. Patient's initial sepsis screen is negative. Does the patient have a suspected source of infection? No. Patient's initial sepsis screen is negative. Risk Assessment: Do you want to hurt yourself or someone else? Patient reports no desire to harm self or others. Onset of symptoms was July 23, 2024. 12:25 Method Of Arrival: Ambulatory iw 12:25 Acuity: LILIANA 4 iw Triage Assessment: 12:26 Headache History: The patient has had previous headaches and this one is similar to iw previous episodes. General: Appears uncomfortable, Behavior is cooperative, appropriate for age, anxious. Pain: Complains of pain in right sternocleidomastoid Pain radiates to right cheek, right ear, right baptism and right jaw Pain currently is 9 out of 10 on a pain scale. Quality of pain is described as aching, Pain began 4days ago Is continuous. Neuro: Level of Consciousness is awake, alert, obeys commands, Oriented to person, place, time. Cardiovascular: Patient's skin is warm and dry. Respiratory: Airway is patent Respiratory effort is even, unlabored, Respiratory pattern is regular, symmetrical. Musculoskeletal: Reports pain in right sternocleidomastoid. 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 - Infectious Disease History:: Denies. - Social history:: Smoking status: Reported history of juuling and/or vaping. - Family history:: not pertinent. - Hospitalizations: : No recent hospitalization is reported. Screenin:24 [facility] ED Fall Risk Assessment (Adult) History of falling in the last 3 months, bp including since admission No falls in past 3 months (0 pts) Confusion or Disorientation No (0 pts) Intoxicated or Sedated No (0 pts) Impaired Gait No (0 pts) Mobility Assist Device Used No (0 pt) Altered Elimination No (0 pt) Score/Fall Risk Level 0 - 2 = Low Risk Oriented to surroundings. Abuse screen: Denies threats or abuse. Denies injuries from another. Nutritional screening: No deficits noted. Tuberculosis screening: No symptoms or risk factors identified. Assessment: 13:00 General: Appears in no apparent distress. uncomfortable, Behavior is calm, cooperative. iw Pain: Complains of pain in forehead, right eye, right ear, right baptism, right jaw and neck. Neuro: Cleaning Agitation-Sedation Scale (RASS): Level of Consciousness is awake, alert, obeys commands, Oriented to person, place, time, situation, Moves all extremities. Full function. Respiratory: Respiratory effort is even, unlabored, Respiratory pattern is regular, symmetrical. Vital Signs: 12:25 BP 134 / 79; Pulse 72; Resp 18; Temp 98.2; Pulse Ox 100% ; Weight 83.91 kg; Height 5 iw ft. 8 in. ; Pain 9/10; 12:25 Body Mass Index 28.13 (83.91 kg, 172.72 cm) iw 12:25 Pain Scale: Adult iw ED Course: 12:08 Patient arrived in ED. al6 12:24 Rene Chahal MD is Attending Physician. rn 12:26 Triage completed. iw 12:26 Arm band placed on Patient placed in waiting room. iw 12:42 Trinidad Vivar, RN is Primary Nurse. iw 12:53 Initial lab(s) drawn, by me, sent to lab. Inserted saline lock: 22 gauge in right iw antecubital area, using aseptic technique. Blood collected. Flushed with 10 mL NS. 13:25 CT Soft Tissue Neck W/contr In Process Unspecified. EDMS 14:24 Patient has correct armband on for positive identification. bp 16:12 No provider procedures requiring assistance completed. IV discontinued, intact, bp bleeding controlled, No redness/swelling at site. Pressure dressing applied. Administered Medications: 13:03 Drug: Ketorolac IVP 15 mg IVP once Route: IVP; Site: right antecubital; iw 16:02 Follow up: Response: No adverse reaction bp 15:45 Drug: Clindamycin PO 300 mg PO once Route: PO; bp 16:02 Follow up: Response: No adverse reaction bp Outcome: 15:43 Discharge ordered by . rn 16:12 Discharged to home ambulatory, bp 16:12 Condition: stable 16:12 Discharge instructions given to patient, Instructed on discharge instructions, follow up and referral plans. medication usage, Demonstrated understanding of instructions, follow-up care, medications, Prescriptions given X 2, 16:12 Patient left the ED. bp Signatures: Dispatcher [employer] EDTrinidad Erwin RN RN iw Rene Chahal MD MD rn Peltier, Brian, RN RN Jasmyn [id number] Corrections: (The following items were deleted from the chart) 12:29 12:25 Acuity: LILIANA 3 [facility]
[2024-07-27 16:50] VITALS: BP 134/79; TEMP 98.2; O2SAT 100
== END 2024-07-27 16:12 | disposition home or self-care (01) ==
LOC: ER 12:07
DX: L04.0 Acute lymphadenitis of face, head and neck (principal)
CPT/HCPCS: 85025; 80048; 36415; 70491; 96374; 99284; Q9967

== ENCOUNTER 2024-08-24 13:03 | Emergency (ER) | payer OTHER ==
--- OUTSIDE RECORDS SUMMARY | 2024-08-24 13:09 | XMS REPORT | Continuity of Care Document ---
Author Name Unknown Address [address] [facility] [address] [place] [address] [facility] Address [address] 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 Role Phone Kassi Hensley Primary Care Physician [phone] QUENTIN PRETTY Attending Clinician Unavailable HANNAH TEMPLETON Attending Clinician Unavail able Visit, Shauna Nurse Attending Clinician Unava ilHannah Gutierrez Attending Clinician + Doctor Unassigned, [place] Attending Clinician U navailDean Reese Attending Clinician [phone] Quentin Pretty MD Attending Clinician [phone] DEAN EDWARDS Attending Clinician UnavailJonh Arellano MD Attending Clinician [phone] Shauna Varma Attending Clinician Unavailable Vi Robles Attending Clinician + Eloina Hensley Attending Clinician [phone] ELOINA BLACK Attending Clinician Unavailabl VI Pablo Attending Clinician Unavail able Ultrasound, Andrelive Attending Clinician Alexandra Alexandre MD, Crescencio Suazo Attending Clinician + Provider, Shauna Temp Attending Clinician Kim Regino Lomeli MD Attending Clinician [phone] Quentin Grimaldo Attending Clinician [phone] ERIC PATEL Attending Clinician Unavailab ELVIN Mcdonnell Attending Clinician Unavailable Lab, Adc Fam Pob I Attending Clinician Unavailab Deepa Bateman Attending Clinician [phone] DEEPA SPENCE Attending Clinician Unavailable Trimester, [facility]st Attending Clinician Unavailable Elvin Green MD Attending Clinician [phone] Willam Jensen DO Attending Clinician [phone] Armin Alberto MD Attending Clinician [phone] QUENTIN PRETTY Admitting Clinician Unavailable Quentin Pretty MD Admitting Clinician [phone] Armin Alberto MD Admitting Clinician [phone] Payers Payer Name Policy Type Policy Number Effective Date Expirati on Date Source [employer] MEDICA[employer] [id number] 2019 00:00:00 [facility] [id number] 2020 00:00:00 Problems Condition Name Condition Details Condition Category Status Onset Date Resolution Date Last Treatment Date Treating Clinician Comments Source Other general counseling and advice for contracept diane management Other general counseling and advice for contracept diane management Disease Active 3-30 00:00: 00 [facility] ASCUS of cervix with negative high risk HPV ASCUS of cervix with negative high risk HPV Disease Active 4-12 00:00: 00 [facility] Tobacco use disorder Tobacco use disorder Disease Active 3-24 00:00: 00 [facility] Allergies, Adverse Reactions, Alerts Allergy Name Allergy Type Status Severity Reaction(s) Onset Date Inactive Date Treating Clinician Comments Source NO KNOWN ALLERGIE S Drug Class Active [facility] Social History Social Habit Start Date Stop Date Quantity Comments Source History SDOH Alcohol Std Drinks [facility] History SDOH Alcohol Binge [facility] History SDOH Alcohol Comment [place] [facility] Exposure to SARS-CoV-2 (event) 2021-08-25 00:00:00 2021-09-04 13:28:00 Not sure [facility] Tobacco Comment 2021-02-07 00:00:00 2021-02-07 00:00:00 3 packs per year [facility] History of Social function 2020-11-15 00:00:00 2020-11-15 00:00:00 [facility] Cigarettes smoked current (pack per day) - Reported 2019-11-17 00:00:00 2019-11-17 00:00:00 [facility] Cigarette pack-years 2019-11-17 00:00:00 2019-11-17 00:00:00 [facility] Tobacco use and exposure 2019-11-17 00:00:00 2019-11-17 00:00:00 Smokeless tobacco non-user [facility] Alcohol intake 2019-11-17 00:00:00 2019-11-17 00:00:00 Current non-drinker of alcohol (finding) [facility] History SDOH Alcohol Frequency 2019-11-17 00:00:00 2019-11-17 00:00:00 1 [facility] History of tobacco use 2019-03-05 00:00:00 Cigarette Smoker [facility] Sex Assigned At 1995 00:00:00 1995 00:00:00 [facility] Smoking Status Start Date Stop Date Source Smokes tobacco daily 2019-11-17 00:00:00 [facility] Medications Ordered Medication Name Filled Medication Name Start Date Stop Date Current Medication? Ordering Clinician Indication Dosage Frequency Signature (SIG) Comments Components Source halobetasol propionate 0.05 % topical cream 08-02 00:00: 00 Yes 1% Anirudh Boles triamcinolo ne acetonide 0.1 % topical cream 08-02 00:00: 00 Yes 1% Anirudh Boles ketoconazol e 2 % shampoo 08-02 00:00: 00 Yes % Anirudh Boles sulfamethox azole 800 mg-trimetho prim 160 mg tablet 08-02 00:00: 00 Yes 1mg Anirudh Boles Suboxone 12 mg-3 mg sublingual film 07-26 00:00: 00 Yes 1mg Anirudh Boles Suboxone 8 mg-2 mg sublingual film 07-26 00:00: 00 Yes 1mg Anirudh Boles Suboxone 12 mg-3 mg sublingual film 06-28 00:00: 00 Yes 1mg Anirudh Boles Suboxone 8 mg-2 mg sublingual film 06-28 00:00: 00 Yes 1mg Anirudh Boles Suboxone 12 mg-3 mg sublingual film 06-01 00:00: 00 Yes 1mg Anirudh Boles Suboxone 8 mg-2 mg sublingual film 06-01 00:00: 00 Yes 1mg Anirudh Boles Suboxone 12 mg-3 mg sublingual film 2023-05 00:00: 00 Yes 1mg Anirudh Boles Suboxone 8 mg-2 mg sublingual film 2023-05 00:00: 00 Yes 1mg Anirudh Boles Suboxone 12 mg-3 mg sublingual film 2023-05 2 00:00: 00 Yes 1mg Anirudh Boles Suboxone 8 mg-2 mg sublingual film 2023-05 00:00: 00 Yes 1mg Anirudh Boles Suboxone 12 mg-3 mg sublingual film 2023-05 1- 00:00: 00 Yes 1mg Anirudh Boles Suboxone 8 mg-2 mg sublingual film 2023-05 1- 00:00: 00 Yes 1mg Anirudh Boles Suboxone 12 mg-3 mg sublingual film 2023-05 0-08 00:00: 00 Yes 1mg Anirudh Boles Suboxone 8 mg-2 mg sublingual film 2023-05 0-08 00:00: 00 Yes 1mg Anirudh Boles Suboxone 12 mg-3 mg sublingual film 0 9- 00:00: 00 Yes 1mg Anirudh Boles Suboxone 8 mg-2 mg sublingual film 0 9- 00:00: 00 Yes 1mg Anirudh Boles Suboxone 12 mg-3 mg sublingual film 0 8-14 00:00: 00 Yes 1mg Anirudh Boles Suboxone 8 mg-2 mg sublingual film 2023-0 8-14 00:00: 00 Yes 1mg Aniurdh Boles Suboxone 12 mg-3 mg sublingual film 2023-0 7-18 00:00: 00 Yes 1mg Anirudh Boles Suboxone 8 mg-2 mg sublingual film 4-0 -18 00:00: 00 Yes 1mg Anirudh Boles Suboxone 12 mg-3 mg sublingual film 2023-0 -25 00:00: 00 Yes 1mg Anirudh Boles Suboxone 8 mg-2 mg sublingual film 2023-0 6-25 00:00: 00 Yes 1mg Anirudh Boles Suboxone 12 mg-3 mg sublingual film 2023-0 6-20 00:00: 00 Yes 1mg Anirudh Boles Suboxone 8 mg-2 mg sublingual film 2023-0 -20 00:00: 00 Yes 1mg Anirudh Boles Suboxone 12 mg-3 mg sublingual film 2023-0 - 00:00: 00 Yes 1mg Anirudh Boles Suboxone 8 mg-2 mg sublingual film 2023-0 - 00:00: 00 Yes 1mg Anirudh Boles AMOXICILLIN 2023-0 5- 00:00: 00 Yes Anirudh Boles IBUPROFEN 2023-0 5- 00:00: 00 Yes Anirudh Boles BRING MEDICATION WITH YOU TO DENTAL OFFICE FOR YOUR APPOINTMENT 2023-0 5- 00:00: 00 Yes Anirudh Boles Suboxone 12 mg-3 mg sublingual film 2023-0 -25 00:00: 00 Yes 1mg Anirudh Boles Suboxone 8 mg-2 mg sublingual film 2023-0 -25 00:00: 00 Yes 1mg Anirudh Boles medroxyprog esterone 150 mg/mL intramuscul ar suspension 2023-0 -24 00:00: 00 Yes mg/mL Anirudh Boles TAKE 1 CAPSULE BY MOUTH THREE TIMES DAILY 2023-0 -24 00:00: 00 Yes Anirudh Boles medroxyprog esterone 150 mg/mL intramuscul ar suspension 2023-0 -19 00:00: 00 Yes mg/mL Anirudh Boles ADMINISTER 1 ML IN THE MUSCLE 1 TIME EVERY 3 MONTHS 2023-0 -19 00:00: 00 Yes 150 Anirudh Boles SUBOXONE MIS 8-2MG 2023-0 4-02 00:00: 00 Yes Anirudh Boles Suboxone 12 mg-3 mg sublingual film 08-03 00:00: 00 Yes 1mg Anirudh Boles Suboxone 8 mg-2 mg sublingual film 4 00:00: 00 Yes 1mg Anirudh Boles Suboxone 12 mg-3 mg sublingual film 3- 00:00: 00 Yes 1mg Anirudh Boles Suboxone 8 mg-2 mg sublingual film - 00:00: 00 Yes 1mg Anirudh Boles Suboxone 12 mg-3 mg sublingual film 2-08 00:00: 00 Yes mg Anirudh Boles Suboxone 8 mg-2 mg sublingual film 2-08 00:00: 00 Yes mg Anirudh Boles TAKE ONE FILM SUBLINGUAL DAILY 2022-05 00:00: 00 09-15 00:00 :00 No 123 Anirudh Boles BUPREN/NALO X MIS 12-3MG 2022-05 00:00: 00 Yes Anirudh Boles BUPREN/NALO X MIS 8-2MG 2022-05 00:00: 00 Yes Anirudh Boles 1 STRIP SL BID 2022-05 020 00:00: 00 09-15 00:00 :00 No 82 Anirudh Boles TAKE ONE FILM SUBLINGUAL DAILY 2022-05 020 00:00: 00 09-15 00:00 :00 No 123 Anirudh Boles TAKE ONE (1) FILM BY MOUTH. 01-31 00:00: 00 Yes Anirudh Boles TAKE 1 TABLET TWICE DAILY NEEDED. 01-15 00:00: 00 09-15 00:00 :00 No 50 Anirudh Boles 1 SPRAY INTO NOSTRIL FOR OPIOID OVERDOSE. MAY REPEAT DOSE IN ALTERNATE NOSTRILS Q2-3 MIN UNTIL PT RESPONSIVE OR EMS ARRIVE 01-15 00:00: 00 09-15 00:00 :00 No 401 Anirudh Boles SUBOXONE MIS 8-2MG 09-27 00:00: 00 Yes Anirudh Boles MEDROXYPR AC INJ /ML 09-06 00:00: 00 Yes Anirudh Boles TAKE 1 CAPSULE TWICE DAILY. 09-06 00:00: 00 09-15 00:00 :00 No 500 Anirudh Boles SUBOXONE MIS 8-2MG 5- 00:00: 00 Yes Anirudh Boles APPLY SPARINGLY TO AFFECTED AREA(S) TWICE DAILY 08-23 00:00: 00 09-15 00:00 :00 No 2 Anirudh Boles APPLY SPARINGLY AND MASSAGE IN TWICE DAILY. 08-23 00:00: 00 09-15 00:00 :00 No 1 Anirudh Boles TAKE 1 TABLET EVERY MORNING NEEDED. 08-23 00:00: 00 09-15 00:00 :00 No 10 Anirudh Boles SUBOXONE MIS 8-2MG 3-06 00:00: 00 Yes Anirudh Boles METRONIDAZO LE 500MG TABLETS 2-08 00:00: 00 Yes Anirudh Boles MEDROXYPROG ESTERONE 150MG/ML VIAL 2-08 00:00: 00 Yes Anirudh Boles MEDROXYPROG ESTERONE 150MG/ML VIAL 2021-05 1-07 00:00: 00 Yes Anirudh Boles SUBOXONE MIS 8-2MG 6-27 00:00: 00 Yes Anirudh Boles SUBOXONE MIS 8-2MG 5-27 00:00: 00 Yes Anirudh Boles medroxyPROG ESTERone (DEPO-PROVE RA) injection 150 mg 09-04 19:45: 00 05-14 20:44 :00 No [id number] 150mg [facility] ampicillin 500 mg capsule 08-03 00:00: 00 08-14 04:59 :00 No [id number] 500mg Take 1 capsule by mouth 4 (four) times daily for 10 days. [facility] vitamin w/FA tablet 06-04 00:00: 00 Yes [id number] 09 1{tbl} Take 1 tablet by mouth daily. [facility] vitamin w/FA tablet 06-04 00:00: 00 Yes [id number] 09 1{tbl} Take 1 tablet by mouth daily. [facility] Immunizations Ordered Immunization Name Filled Immunization Name Date Status Comments Source HPV9 HPV9 2021-08-01 00:00:00 Completed Anirudh Boles HPV9 2021-08-01 00:00:00 Completed [facility] HPV9 2021-08-01 00:00:00 Completed [facility] HPV9 2021-08-01 00:00:00 Completed [facility] HPV9 2021-08-01 00:00:00 Completed [facility] HPV9 2021-08-01 00:00:00 Completed [facility] TDAP (ADACEL) VACCINE 2021-07-12 00:00:00 Completed [facility] Influenza Virus Vaccine Quad IM 3+ YRS 2021-07-12 00:00:00 Completed [facility] HPV9 2021-07-12 00:00:00 Completed [facility] Tdap Tdap 2021-04-26 00:00:00 Completed Anirudh Hugo Boles TDAP 2021-04-26 00:00:00 Completed [facility] TDAP 2021-04-26 00:00:00 Completed [facility] TDAP 2021-04-26 00:00:00 Completed [facility] TDAP 2021-04-26 00:00:00 Completed [facility] TDAP 2021-04-26 00:00:00 Completed [facility] TDAP (ADACEL) VACCINE 2021-04-11 00:00:00 Completed [facility] Influenza Virus Vaccine Quad IM 3+ YRS 2021-04-11 00:00:00 Completed [facility] HPV9 2021-04-11 00:00:00 Completed [facility] TDAP (ADACEL) VACCINE 2020-04-21 00:00:00 Completed [facility] Influenza Virus Vaccine Quad IM 3+ YRS 2020-04-21 00:00:00 Completed [facility] HPV9 2020-04-21 00:00:00 Completed [facility] TDAP (ADACEL) VACCINE 2019-07-22 00:00:00 Completed [facility] TDAP (ADACEL) VACCINE 2019-07-22 00:00:00 Completed [facility] TDAP (ADACEL) VACCINE 2019-07-22 00:00:00 Completed [facility] TDAP (ADACEL) VACCINE 2019-07-22 00:00:00 Completed [facility] TDAP (ADACEL) VACCINE 2019-07-22 00:00:00 Completed [facility] HPV9 2017-11-03 00:00:00 Completed [facility] HPV9 2017-11-03 00:00:00 Completed [facility] HPV9 2017-11-03 00:00:00 Completed [facility] HPV9 2017-11-03 00:00:00 Completed [facility] HPV9 2017-11-03 00:00:00 Completed [facility] TDAP 2017-07-01 00:00:00 Completed [facility] TDAP 2017-07-01 00:00:00 Completed [facility] TDAP 2017-07-01 00:00:00 Completed [facility] TDAP 2017-07-01 00:00:00 Completed [facility] TDAP 2017-07-01 00:00:00 Completed [facility] Influenza Virus Vaccine Quad IM 3+ YRS 2017-02-06 00:00:00 Completed [facility] Influenza Virus Vaccine Quad IM 3+ YRS 2017-02-06 00:00:00 Completed [facility] Influenza Virus Vaccine Quad IM 3+ YRS 2017-02-06 00:00:00 Completed [facility] Influenza Virus Vaccine Quad IM 3+ YRS 2017-02-06 00:00:00 Completed [facility] Influenza Virus Vaccine Quad IM 3+ YRS 2017-02-06 00:00:00 Completed [facility] TDAP (ADACEL) VACCINE 2015-09-03 00:00:00 Completed [facility] TDAP (ADACEL) VACCINE 2015-09-03 00:00:00 Completed [facility] TDAP (ADACEL) VACCINE 2015-09-03 00:00:00 Completed [facility] TDAP (ADACEL) VACCINE 2015-09-03 00:00:00 Completed [facility] TDAP (ADACEL) VACCINE 2015-09-03 00:00:00 Completed [facility] Vital Signs Vital Name Observation Time Observation Value Comments S ource Systolic blood pressure 2021-11-27 18:03:00 112 mm[Hg] [facility] Diastolic blood pressure 2021-11-27 18:03:00 64 mm[Hg] [facility] Heart rate 2021-11-27 18:03:00 81 /min Unive [facility] Body temperature 2021-11-27 18:03:00 36.67 Callie [facility] Respiratory rate 2021-11-27 18:03:00 16 /min [facility] Body height 2021-11-27 18:03:00 170.2 cm [facility] Body weight 2021-11-27 18:03:00 72.439 kg [facility] BMI 2021-11-27 18:03:00 25.01 kg/m2 [facility] Systolic blood pressure 2021-09-04 18:29:00 124 mm[Hg] [facility] Diastolic blood pressure 2021-09-04 18:29:00 71 mm[Hg] [facility] Heart rate 2021-09-04 18:29:00 75 /min Unive [facility] Body temperature 2021-09-04 18:29:00 37.06 Callie [facility] Respiratory rate 2021-09-04 18:29:00 16 /min [facility] Body height 2021-09-04 18:29:00 170.2 cm [facility] Body weight 2021-09-04 18:29:00 68.811 kg [facility] BMI 2021-09-04 18:29:00 23.76 kg/m2 [facility] BP Systolic 2024-08-02 14:24:00 118 mm[Hg] Step elaina Boles BP Diastolic 2024-08-02 14:24:00 72 mm[Hg] Thierry Boles Weight Measured 2024-08-02 14:24:00 176.00 pounds Anirudh Boles Height Measured 2024-08-02 14:24:00 68.00 inches Anirudh Arias [facility] Body Temperature 2024-08-02 14:24:00 98.30 degrees Anirudh Boles Heart Rate 2024-08-02 14:24:00 73.00 /min Marlene en F Ramana Respiratory Rate 2024-08-02 14:24:00 18.00 /min Anirudh F Ramana BP Systolic 2024-02-10 10:52:00 Step hen F Ramana BP Diastolic 2024-02-10 10:52:00 Thierry phen F Ramana Weight Measured 2024-02-10 10:52:00 Anirudh F Ramana Height Measured 2024-02-10 10:52:00 Anirudh F Ramana Body Temperature 2024-02-10 10:52:00 Anirudh F Ramana Heart Rate 2024-02-10 10:52:00 Marlene en F Ramana Respiratory Rate 2024-02-10 10:52:00 Anirudh F Ramana BP Systolic 2024-01-13 14:08:00 Step hen F Ramana BP Diastolic 2024-01-13 14:08:00 Thierry phen F Ramana Weight Measured 2024-01-13 14:08:00 Anirudh F Ramana Height Measured 2024-01-13 14:08:00 Anirudh F Ramana Body Temperature 2024-01-13 14:08:00 Anirudh F Ramana Heart Rate 2024-01-13 14:08:00 Marlene en F Ramana Respiratory Rate 2024-01-13 14:08:00 Anirudh F Ramana BP Systolic 2023-12-17 13:17:00 Step hen F Ramana BP Diastolic 2023-12-17 13:17:00 Thierry phen F Ramana Weight Measured 2023-12-17 13:17:00 Anirudh F Ramana Height Measured 2023-12-17 13:17:00 Anirudh F Ramana Body Temperature 2023-12-17 13:17:00 Anirudh F Ramana Heart Rate 2023-12-17 13:17:00 Marlene en F Ramana Respiratory Rate 2023-12-17 13:17:00 Anirudh F Ramana BP Systolic 2023-11-20 16:21:00 Step hen F Ramana BP Diastolic 2023-11-20 16:21:00 Thierry phen F Ramana Weight Measured 2023-11-20 16:21:00 Anirudh F Ramana Height Measured 2023-11-20 16:21:00 Anirudh F Ramana Body Temperature 2023-11-20 16:21:00 Anirudh F Ramana Heart Rate 2023-11-20 16:21:00 Marlene en F Ramana Respiratory Rate 2023-11-20 16:21:00 Anirudh F Ramana BP Systolic 2023-10-23 15:43:00 122 mm[Hg] Step hen F Ramana BP Diastolic 2023-10-23 15:43:00 73 mm[Hg] Thierry phen F Ramana Weight Measured 2023-10-23 15:43:00 172.40 pounds Anirudh F Ramana Height Measured 2023-10-23 15:43:00 68.00 inches Anirudh F Ramana Body Temperature 2023-10-23 15:43:00 98.30 degrees Anirudh F Ramana Heart Rate 2023-10-23 15:43:00 69.00 /min Marlene en F Ramana Respiratory Rate 2023-10-23 15:43:00 17.00 /min Anirudh F Ramana BP Systolic 2023-08-22 13:30:00 120 mm[Hg] Step [...] 18.00 /min Anirudh F Ramana BP Systolic 2023-03-21 [...] End Date/Time Encounter Type Admission Type Attending [facility] Care Department Encounter ID Source 2021-07-06 16:01:57 Outpatient R 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 [id number] General acute hospital 2021-03-04 14:10:24 Emergency [facility] [id number] [facility] 2021-03-01 19:41:40 Outpatient [facility] [id number] [facility] 2024-08-24 09:19:51 2024-08-24 09:19:51 Outpatient [facility] SFA [id number] Anirudh Boles 2024-08-02 14:09:20 2024-08-02 14:09:20 Outpatient SFA SFA [id number] Anirudh Boles 2024-08-02 00:00:00 2024-08-02 00:00:00 Outpatient Visit SFA [id number] Anirudh Boles 2024-07-26 13:22:35 2024-07-26 13:22:35 Outpatient SFA [id number] [id number] Anirudh Boles 2024-06-28 16:06:49 2024-06-28 16:06:49 Outpatient SFA SFA [id number] Anirudh Boles 2024-01-13 14:08:23 2024-01-13 14:08:23 Outpatient SFA SFA [id number] Anirudh Boles 2023-10-23 15:31:32 2023-10-23 15:31:32 Outpatient SFA SFA [id number] Anirudh Boles 2023-09-27 12:28:20 2023-09-27 12:28:20 Outpatient SFA SFA [id number] Anirudh Boles 2023-08-22 13:28:58 2023-08-22 13:28:58 Outpatient SFA SFA [id number] Anirudh Boles 2023-08-22 00:00:00 2023-08-22 00:00:00 Outpatient Visit SFA [id number] Anirudh Boles 2023-08-04 17:16:09 2023-08-04 17:16:09 Outpatient SFA SFA [id number] Anirudh Boles 2023-07-09 13:08:59 2023-07-09 13:08:59 Outpatient SFA SFA [id number] Anirudh Boles 2023-06-12 15:00:57 2023-06-12 15:00:57 Outpatient SFA SFA [id number] Anirudh Boles 2023-05-14 14:23:55 2023-05-14 14:23:55 Outpatient SFA SFA [id number] Anirudh Boles 2023-04-16 14:22:55 2023-04-16 14:22:55 Outpatient SFA SFA [id number] Anirduh Boles 2023-03-21 10:18:15 2023-03-21 10:18:15 Outpatient SFA SFA [id number] Anirudh Boles 2023-02-21 10:21:33 2023-02-21 10:21:33 Outpatient SFA SFA [id number] Anirudh Boles 2023-01-31 17:16:40 2023-01-31 17:16:40 Outpatient SFA SFA [id number] Anirudh Boles 2023-01-15 14:10:23 2023-01-15 14:10:23 Outpatient [facility] [id number] Anirudh Boles 2022-09-06 16:08:13 2022-09-06 16:08:13 Outpatient [facility] [id number] Anirudh Boles 2022-08-23 15:36:28 2022-08-23 15:36:28 Outpatient [facility] [id number] Anirudh Boles 2022-03-15 13:30:00 2022-03-15 13:30:00 Outpatient HANNAH DOUGLAS [facility] [id number] [facility] 2022-02-19 13:00:00 2022-02-19 13:00:00 Outpatient HANNAH DOUGLAS [facility] [id number] [facility] 2021-12-03 13:00:00 2021-12-03 13:00:00 Outpatient HANNAH DOUGLAS [facility] [id number] [facility] 2021-11-27 13:00:00 2021-11-27 13:04:09 Nurse Visit Visit, Ang-Rmchp Nurse Hannah Templeton [facility] [employer] EXAMINER [facility] [id number] [facility] 2021-11-27 13:00:00 2021-11-27 13:00:00 Outpatient HANNAH DOUGLAS [facility] [id number] [facility] 2021-11-01 10:30:00 2021-11-01 10:30:00 Outpatient R [facility] [id number] [facility] 2021-11-01 10:30:00 2021-11-01 10:30:00 Outpatient R HANNAH TEMPLETON [facility] [id number] [facility] 2021-10-24 10:30:00 2021-10-24 10:30:00 Outpatient R [facility] [id number] [facility] 2021-09-04 13:30:00 2021-09-04 13:36:35 Outpatient R HANNAH TEMPLETON [facility] [id number] [facility] 2021-09-04 13:30:00 2021-09-04 13:36:35 Nurse Visit Visit, Ang-Rmchp Nurse Hannah Templeton [employer] EXAM[employer]ER [facility] [id number] [facility] 2021-08-31 13:00:00 2021-08-31 13:00:00 Outpatient R HANNAH TEMPLETON [facility] [id number] [facility] 2021-08-30 00:00:00 2021-08-30 00:00:00 Telephone Hannah Templeton [facility] [employer] EXAMINER [facility] [id number] [facility] 2021-08-06 00:00:00 2021-08-06 00:00:00 Telephone Hannah Templeton [facility] YARN SKEINS EXAMINER [facility] CHILD [facility] 1.2.840.114 350.1.13.10 4.2.7.2.686 [id number] [facility] 2021-08-03 00:00:00 2021-08-03 00:00:00 Telephone Hannah Templeton [facility] YARN [employer] EXAMINER [facility] & CHILD [facility] 1.2.840.114 350.1.13.10 4.2.7.2.686 [id number] [facility] 2021-08-01 13:00:00 2021-08-01 13:52:05 Office Visit Hannah Templeton [facility] [employer]ARN [employer] [facility] MATERNAL & CHILD [facility] 1..114 350.1.13.10 4.2.7.2.686 [id number] [facility] 2021-08-01 13:00:00 2021-08-01 13:52:05 Outpatient R HANNAH TEMPLETON [facility] [id number] [facility] 2021-08-01 13:00:00 2021-08-01 13:52:05 Outpatient R AKILADOUGRITA ALASOLA [facility] [id number] [facility] 2021-08-01 13:00:00 2021-08-01 13:00:00 Outpatient R AKILADOUGJESS ALASHANNAH [facility] [id number] [facility] 2021-08-01 00:00:00 2021-08-01 00:00:00 Orders Only Doctor Unassigned, [place] [facility] 1.114 350.1.13.10 4.2.7.2.686 [id number] [facility] 2021-07-31 00:00:00 2021-07-31 00:00:00 Telephone Dean Edwards [facility] YARN [employer] EXAMINER [facility] MATERNAL & CHILD [facility] 1.114 350.1.13.10 4.2.7.2.686 [id number] [facility] 2021-07-24 13:30:00 2021-07-24 13:30:00 Outpatient QUENTIN RAMIRES [facility] [id number] [facility] 2021-07-24 13:30:00 2021-07-24 13:30:00 Outpatient QUENTIN RAMIRES [facility] [id number] [facility] 2021-07-12 00:00:00 2021-07-12 00:00:00 Patient Secure Msg Doctor Unassigned, [place] [facility] 1.114 350.1.13.10 4.2.7.2.686 [id number] [facility] 2021-07-11 09:30:00 2021-07-11 09:30:00 Outpatient R [facility] [id number] [facility] 2021-07-05 13:30:00 2021-07-05 14:57:22 Outpatient R QUENTIN PRETTY [facility] [id number] [facility] 2021-07-05 13:30:00 2021-07-05 14:57:22 Office Visit Quentin Pretty [facility] 1..840.114 350.1.13.10 4.2.7.2.686 [id number] [facility] 2021-07-05 13:30:00 2021-07-05 13:30:00 Outpatient R QUENTIN PRETTY [facility] [id number] [facility] 2021-06-06 00:00:00 2021-06-06 00:00:00 Telephone Dean Edwards [facility] [employer]ARN [employer] EXAM[employer]ER [facility] MATERNAL & CHILD [facility] 1.2.840.114 350.1.13.10 4.2.7.2.686 [id number] [facility] 2021-06-02 14:04:00 2021-06-04 14:20:00 Inpatient P QUENTIN PRETTY [facility] [id number] [facility] 2021-06-02 14:04:00 2021-06-04 14:20:00 Hospital Encounter Quentin Pretty [facility] 1.2.840.114 350.1.13.10 4.2.7.2.686 [id number] [facility] 2021-06-04 10:15:00 2021-06-04 10:15:00 Outpatient R DEAN EDWARDS [facility] [id number] [facility] 2021-06-02 19:42:00 2021-06-03 10:10:00 Anesthesia Event Jonh Rodriguez 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 Lab, Arnaldo-Rmchp Hannah Templeton [facility] YARN [employer]KE[employer] EXAMINER [facility] MATERNAL & CHILD [facility] 1.2.840.114 350.1.13.10 4.2.7.2.686 [id number] [facility] 2021-05-29 00:00:00 2021-05-29 00:00:00 Telephone Dean Edwards [facility] YARN [employer] EXAMINER [facility] & CHILD [facility] 1.2.840.114 350.1.13.10 4.2.7.2.686 [id number] [facility] 2021-05-28 09:30:00 2021-05-28 11:09:26 Routine Visit Dean Edwards [facility] YARN [employer] EXAMINER [facility] & CHILD [facility] 1.2.840.114 350.1.13.10 4.2.7.2.686 [id number] [facility] 2021-05-28 09:30:00 2021-05-28 11:09:26 Outpatient DEAN ROSEN [facility] [id number] [facility] 2021-05-28 09:30:00 2021-05-28 09:30:00 Outpatient DEAN ROSEN [facility] [id number] [facility] 2021-05-25 08:15:00 2021-05-25 08:15:00 Outpatient DEAN ROSEN [facility] [id number] [facility] 2021-05-10 09:30:00 2021-05-10 09:49:03 Outpatient DEAN ROSEN [facility] [id number] [facility] 2021-05-10 09:30:00 2021-05-10 09:49:03 Routine Visit Dean Edwards [facility] [employer]ARN [employer] EXAMINER [facility] MATERNAL & CHILD [facility] .840.114 350.1.13.10 4.2.7.2.686 [id number] [facility] 2021-05-10 09:30:00 2021-05-10 09:49:03 Outpatient DEAN ROSEN [facility] [id number] [facility] 2021-04-29 00:00:00 2021-04-29 00:00:00 Telephone Vi Mccarthy [facility] [employer] EXAMINER [facility] MATERNAL & CHILD [facility] 1.840.114 350.1.13.10 4.2.7.2.686 [id number] [facility] 2021-04-26 09:30:00 2021-04-26 10:29:45 Outpatient DEAN ROSEN [facility] [id number] [facility] 2021-04-26 09:30:00 2021-04-26 10:29:45 Routine Visit Dean Edwards [facility] YARN [employer] EXAMINER [facility] MATERNAL & CHILD [facility] .840.114 350.1.13.10 4.2.7.2.686 [id number] [facility] 2021-04-26 00:00:00 2021-04-26 00:00:00 Orders Only Doctor Unassigned, [place] [facility] 1.84.114 350.1.13.10 4.2.7.2.686 [id number] [facility] 2021-04-11 00:00:00 2021-04-11 00:00:00 Telephone Eloina Black [facility] [employer]ARN [employer] EXAMINER [facility] & CHILD [facility] 1..840.114 350.1.13.10 4.2.7.2.686 [id number] [facility] 2021-04-11 00:00:00 2021-04-11 00:00:00 Patient Secure Msg Doctor Unassigned, [place] [facility] YARN [employer]KE[employer] EXAMINER [facility] CHILD [facility] .840.114 350.1.13.10 4.2.7.2.686 [id number] [facility] 2021-04-05 11:00:00 2021-04-05 11:00:00 Outpatient ELOINA PINEDO [facility] [id number] [facility] 2021-04-03 10:45:00 2021-04-03 10:45:00 Outpatient VI CHAMPAGNE [facility] [id number] [facility] 2021-03-08 10:00:00 2021-03-08 10:00:00 Outpatient ELOINA PINEDO [facility] [id number] [facility] 2021-02-20 14:12:42 2021-02-20 15:12:42 Paint Mixer Hand Visit Ultrasound, Crescencio Nunes [facility] [employer]ARN [employer]KE[employer] EXAMINER [facility] & CHILD [facility] ..840.114 350.1.13.10 4.2.7.2.686 [id number] [facility] 2021-02-20 14:30:00 2021-02-20 14:30:00 Outpatient P [facility] [id number] [facility] 2021-02-07 14:04:59 2021-02-07 14:41:49 Routine Visit Provider, Ang-Rmchp Vi Nayak [facility] [employer] EXAMINER [facility] & CHILD [facility] 1.2.840.114 350.1.13.10 4.2.7.2.686 [id number] [facility] 2021-02-07 14:00:00 2021-02-07 14:00:00 Outpatient R [facility] [id number] [facility] 2021-01-18 00:00:00 2021-01-18 00:00:00 Orders Only Doctor Unassigned, [place] [facility] 1.2.840.114 350.1.13.10 4.2.7.2.686 [id number] [facility] 2021-01-11 00:00:00 2021-01-11 00:00:00 Telephone Dean Edwards [facility] [employer] EXAMINER [facility] & CHILD [facility] 1.2.840.114 350.1.13.10 4.2.7.2.686 [id number] [facility] 2021-01-10 12:45:09 2021-01-10 13:15:32 Routine Visit Dean Edwards [facility] YARN [employer]KE[employer] EXAMINER [facility] & CHILD [facility] 1.2.840.114 350.1.13.10 4.2.7.2.686 [id number] [facility] 2021-01-10 12:45:09 2021-01-10 13:15:32 Routine Visit Dean Edwards [facility] [employer] EXAMINER [facility] & CHILD [facility] 1.2.840.114 350.1.13.10 4.2.7.2.686 [id number] [facility] 2021-01-10 12:45:00 2021-01-10 12:45:00 Outpatient R DEAN EDWARDS [facility] [id number] [facility] 2020-12-13 11:01:23 2020-12-13 11:16:23 Routine Visit Tereza Edwardsdavid Ad [facility] YARN [employer] EXAMINER [facility] MATERNAL & CHILD [facility] 1.2.840.114 350.1.13.10 4.2.7.2.686 [id number] [facility] 2020-12-13 11:00:00 2020-12-13 11:00:00 Outpatient R OLENA EDWARDSBRYN [facility] [id number] [facility] 2020-12-05 00:00:00 2020-12-05 00:00:00 Abstract Tereza Edwardsdavid [facility] YARN SKE[employer] EXAMINER [facility] MATERNAL & CHILD [facility] 1.2.840.114 350.1.13.10 4.2.7.2.686 [id number] [facility] 2020-12-04 11:22:05 2020-12-04 11:52:05 Paint Mixer Hand Visit Ultrasound, Regino Lea [facility] YARN SKEINS EXAMINER [facility] MATERNAL & CHILD [facility] 1.2.840.114 350.1.13.10 4.2.7.2.686 [id number] [facility] 2020-12-04 11:00:00 2020-12-04 11:00:00 Outpatient P [facility] [id number] [facility] 2020-11-20 00:00:00 2020-11-20 00:00:00 Telephone Tereza Edwardsdavid [facility] [employer] EXAMINER [facility] MATERNAL & CHILD [facility] 1.2.840.114 350.1.13.10 4.2.7.2.686 [id number] [facility] 2020-11-15 12:58:11 2020-11-15 13:45:00 Initial Visit Olena Edwardsbryn [facility] Y[employer]KE[employer] EXAMINER [facility] MATERNAL & CHILD [facility] 1.2.840.114 350.1.13.10 4.2.7.2.686 [id number] [facility] 2020-11-15 12:45:00 2020-11-15 12:45:00 Outpatient R [facility] [id number] [facility] 2020-11-15 00:00:00 2020-11-15 00:00:00 Orders Only Doctor Unassigned, [place] [facility] 1..840.114 350.1.13.10 4.2.7.2.686 [id number] [facility] 2020-09-05 10:00:00 2020-09-05 10:00:00 Outpatient R ELOINA BLACK [facility] [id number] [facility] 2020-08-29 14:30:00 2020-08-29 14:30:00 Outpatient R [facility] [id number] [facility] 2020-08-22 15:08:00 2020-08-22 16:43:00 Emergency Quentin Albrecht R [facility] 1..840.114 350.1.13.10 4.2.7.2.686 [id number] [facility] 2020-08-22 09:45:00 2020-08-22 09:45:00 Outpatient R [facility] [id number] [facility] 2020-08-21 18:40:00 2020-08-21 18:40:00 Outpatient R ERIC PATEL [facility] [id number] [facility] 2020-08-17 00:00:00 2020-08-17 00:00:00 Telephone Hannah Templeton [facility] [employer] EXAMINER [facility] MATERNAL & CHILD [facility] 1..840.114 350.1.13.10 4.2.7.2.686 [id number] [facility] 2020-08-16 00:00:00 2020-08-16 00:00:00 Telephone Hannah Templeton [facility] [employer] EXAMINER [facility] & CHILD [facility] 1.2.840.114 350.1.13.10 4.2.7.2.686 [id number] [facility] 2020-08-16 00:00:00 2020-08-16 00:00:00 Telephone Eloina Black [facility] [employer] EXAMINER [facility] & CHILD [facility] 1.2.840.114 350.1.13.10 4.2.7.2.686 [id number] [facility] 2020-08-15 14:30:00 2020-08-15 14:30:00 Outpatient ELVIN MENDEZ [facility] [id number] [facility] 2020-08-15 11:17:00 2020-08-15 11:47:22 Routine Visit Hannah Templeton Emily N [facility] [employer] EXAMINER [facility] CHILD [facility] 1.2.840.114 350.1.13.10 4.2.7.2.686 [id number] [facility] 2020-08-15 11:00:00 2020-08-15 11:00:00 Outpatient R ELOINA BLACK [facility] [id number] [facility] 2020-08-14 00:00:00 2020-08-14 00:00:00 Telephone Eloina Black [facility] [employer] EXAMINER [facility] CHILD [facility] 1.2.840.114 350.1.13.10 4.2.7.2.686 [id number] [facility] 2020-08-10 10:45:00 2020-08-10 10:45:00 Outpatient R ELOINA BLACK [facility] [id number] [facility] 2020-08-08 15:30:00 2020-08-08 15:30:00 Outpatient Ad [facility] [id number] [facility] 2020-08-08 14:30:00 2020-08-08 14:30:00 Outpatient R [facility] [id number] [facility] 2020-08-03 11:33:07 2020-08-03 11:53:07 Laboratory Only Lab, Adc Sourav Osunab Deepa Sykes [facility] [address] 1..114 350.1.13.10 4.2.7.2.686 [id number] [facility] 2020-08-03 11:40:00 2020-08-03 11:40:00 Outpatient R DEEPA SPENCE [facility] [id number] [facility] 2020-08-01 09:58:49 2020-08-01 10:45:23 Routine Visit Trimester, [facility] Res-1st Elvin Green [facility] ..114 350.1.13.10 4.2.7.2.686 [id number] [facility] 2020-08-01 09:30:00 2020-08-01 09:30:00 Outpatient R [facility] [id number] [facility] 2020-07-31 09:00:00 2020-07-31 09:00:00 Outpatient R [facility] [id number] [facility] 2020-07-27 00:00:00 2020-07-27 00:00:00 Telephone Dean Edwards [facility] [employer] EXAMINER [facility] MATERNAL & CHILD [facility] 1..114 350.1.13.10 4.2.7.2.686 [id number] [facility] 2020-07-26 13:06:20 2020-07-26 14:21:08 Initial Visit Eloina Black [facility] [employer] EXAMINER [facility] MATERNAL & CHILD [facility] 1.84.114 350.1.13.10 4.2.7.2.686 [id number] [facility] 2020-07-26 13:00:00 2020-07-26 13:00:00 Outpatient Ad SOFIAELOINA [facility] [id number] [facility] 2020-07-26 00:00:00 2020-07-26 00:00:00 Orders Only Doctor Unassigned, [place] [facility] 1..840.114 350.1.13.10 4.2.7.2.686 [id number] [facility] 2020-07-25 14:00:00 2020-07-25 14:00:00 Outpatient DEAN ROSEN [facility] [id number] [facility] 2020-07-25 00:00:00 2020-07-25 00:00:00 Patient Outreach Willam Jensen [facility] 1..840.114 350.1.13.10 4.2.7.2.686 [id number] [facility] 2020-07-20 14:00:00 2020-07-20 14:00:00 Outpatient ELOINA PINEDO [facility] [id number] [facility] 2020-04-21 00:00:00 2020-04-21 00:00:00 Patient Secure Msg Doctor Unassigned, [place] [facility] 1..840.114 350.1.13.10 4.2.7.2.686 [id number] [facility] 2020-02-15 11:00:00 2020-02-15 11:00:00 Outpatient DEAN ROSEN [facility] [id number] [facility] 2020-02-09 13:00:00 2020-02-09 13:00:00 Outpatient DEAN ROSEN [facility] [id number] [facility] 2019-11-17 14:04:29 2019-11-17 16:36:30 Office Visit Dean Edwards [facility] [employer] EXAMINER [facility] MATERNAL & CHILD [facility] 1.2.840.114 350.1.13.10 4.2.7.2.686 [id number] [facility] 2019-11-17 14:04:29 2019-11-17 16:36:30 Office Visit Rohini Edwardsestefania Duong [facility] [employer] EXAMINER [facility] & CHILD [facility] 1.2.840.114 350.1.13.10 4.2.7.2.686 [id number] 2019-11-17 13:45:00 2019-11-17 13:45:00 Outpatient OLENA ROSENBRYN [facility] [id number] [facility] 2019-10-21 15:45:00 2019-10-21 15:45:00 Outpatient OLENA ROSENBRYN [facility] [id number] [facility] 2019-09-30 07:26:37 2019-09-30 10:46:56 Telemedici ne Visit Olena Edwardsbryn Duong [facility] [employer] EXAMINER [facility] CHILD [facility] 1..840.114 350.1.13.10 4.2.7.2.686 [id number] [facility] 2019-09-30 09:45:00 2019-09-30 09:45:00 Outpatient TEREZA ROSENANGELICEstefania [facility] [id number] [facility] 2019-09-28 00:00:00 2019-09-28 00:00:00 Telephone Olena Edwardsbryn Duong [facility] [employer] EXAMINER [facility] & CHILD [facility] 1.2.840.114 350.1.13.10 4.2.7.2.686 [id number] [facility] 2019-09-13 15:00:00 2019-09-13 15:00:00 Outpatient OLENA ROSENBRYN [facility] [id number] [facility] 2019-09-13 00:00:00 2019-09-13 00:00:00 Telephone Olena Edwardsbryn [facility] [employer] EXAMINER [facility] & CHILD [facility] 1.2.840.114 350.1.13.10 4.2.7.2.686 [id number] [facility] 2019-09-10 00:00:00 2019-09-10 00:00:00 Telephone Hannah Templeton [facility] [employer] EXAMINER [facility] 1.2.840.114 350.1.13.10 4.2.7.2.686 [id number] [facility] 2019-09-08 13:00:00 2019-09-08 13:00:00 Outpatient DEAN ROSEN [facility] [id number] [facility] 2019-09-03 21:41:00 2019-09-05 12:22:00 Hospital Encounter Remy, [facility] 1.2.840.114 350.1.13.10 4.2.7.2.686 [id number] [facility] 2019-09-03 00:00:00 2019-09-03 00:00:00 Telephone Hannah Templeton [facility] [employer] EXAMINER [facility] CHILD [facility] 1.2.840.114 350.1.13.10 4.2.7.2.686 [id number] [facility] 2019-09-01 11:04:48 2019-09-01 12:49:48 Routine Visit Dean Edwards [facility] [employer] [facility] & CHILD [facility] [id number] [id number] [facility] 2019-09-01 10:45:00 2019-09-01 10:45:00 Outpatient [facility] ROSEN [facility] [id number] [facility] 2019-08-26 00:00:00 2019-08-26 00:00:00 Telephone Dean Edwards [facility] [employer] [facility] & CHILD [facility] [id number] [id number] [facility] 2019-08-25 09:12:32 2019-08-25 10:15:17 Routine Visit Dean Edwards [facility] [employer] [facility] CHILD [facility] [id number] [id number] [facility] 2019-08-25 09:00:00 2019-08-25 09:00:00 Outpatient DEAN ROSEN [facility] [id number] [facility] 2019-08-17 15:22:17 2019-08-17 16:16:48 Routine Visit Hannah Templeton [facility] [employer] [facility] CHILD [facility] [id number] [id number] [id number] [facility] 2019-08-17 14:45:00 2019-08-17 14:45:00 Outpatient R HANNAH TEMPLETON [facility] [id number] [facility] 2019-08-17 00:00:00 2019-08-17 00:00:00 Telephone Hannah Templeton [facility] [employer] [facility] CHILD [facility] [id number] [id number] [id number] [facility] 2019-08-12 13:55:40 2019-08-12 14:03:43 Telemedici ne Visit Dean Edwards [facility] [employer] [facility] CHILD [facility] [id number] [id number] [id number] 107 [id number] [facility] 2019-08-12 13:45:00 2019-08-12 13:45:00 Outpatient R DEAN EDWARDS [facility] [id number] [facility] 2019-08-05 10:30:00 2019-08-05 10:30:00 Outpatient Ad [facility] [id number] [facility] [facility] 2019-08-05 00:00:00 2019-08-05 00:00:00 Telephone Dean Edwards [facility] [employer] [employer] EXAM[facility]ER [facility]ERNAL & CHILD [facility] [id number] [facility] 2019-07-23 00:00:00 2019-07-23 00:00:00 Telephone Hannah Templeton [facility] [employer] [facility] & CHILD [facility] [id number] [facility] 2019-07-22 09:16:52 2019-07-22 10:24:47 Routine Visit Hannah Templeton Roshunda R [facility] [employer] [place] EXAM[employer]ER [facility] & CHILD [facility] [id number] [facility] 2019-07-22 09:00:00 2019-07-22 09:00:00 Outpatient DEAN ROSEN [facility] [id number] [facility] 2019-07-08 00:00:00 2019-07-08 00:00:00 Telephone Hannah Templeton [facility] [employer] [place] EXAM[employer]ER [facility] & [facility]ILD [facility] [id number] [facility] 2019-06-30 09:45:00 2019-06-30 09:45:00 Outpatient HANNAH DOUGLAS [facility] [id number] [facility] 2019-06-24 00:00:00 2019-06-24 00:00:00 Letter (Out) Hannah Templeton [facility] [id number] [facility] 2019-06-02 00:00:00 2019-06-02 00:00:00 Abstract Hannah Templeton [facility] [id number] [facility] 2019-05-18 15:22:47 2019-05-18 16:34:43 Routine Visit Hannah Templeton [facility] [id number] [facility] Results Test Description Test Time Test Comments Results Result Co mments Source HEPATITIS PANEL, [id number] 04:19:12* Test Item Value Reference Range Interpretation Comme nts HEPATITIS A IgM (test code = 48279) NON-REACTIVE NON-REACTIVE HEPATITIS B CORE IgM (test code = 4644) NON-REACTIVE NON-REACTIVE HEPATITIS B SURF AG (test code = 2739) NON-REACTIVE NON-REACTIVE HEPATITIS C ANTIBODY (test code = 4675) NON-REACTIVE NON-REACTIVE INTERPRETATION HEPATITIS A: (test code = 2552) (NOTE) Hepatitis A sero logy shows no evidence of acute hepatitis A. INTERPRETATION HEPATITIS B: (test code = 91786) (NOTE) Hepatitis B sero logy shows no evidence of acute hepatitis B andno indication of exposure to hepatitis B virus in the previous lalitha eight months. INTERPRETATION HEPATITIS C: (test code = 00760) (NOTE) Hepatitis C sero logy shows no evidence of exposure to hepatitisC virus at this time. It can take up to 12 months after exposure tothe hepatitis C virus for antibodies to become detectable in the blood in certain patients. UNLESS OTHERWISE INDICATED, ALL TESTING PERFORMED AT [facility] [address] [place] [id number] SCORING MACHINE OPERATOR: PARTHA JACKSON M.D. CLIA NUMBER [id number] [place] [id number] COMPREHENSIVE METABOLIC [id number] 04:07:24* Test Item Value Reference Range Interpretation Comme nts GLUCOSE (test code = 2217) 62 MG/DL 70-99 L BUN (test code = 220) 9 MG/DL 6-20 CREATININE (test code = 221) 0.62 MG/DL 0.60-1.30 eGFR (2020 CKD-EPI) (test code = 26129) 125 ML/MIN/1.73 >60 CALC BUN/CREAT (test code = 2235) 15 RATIO 6-28 SODIUM (test code = 223) 141 MEQ/L 133-146 POTASSIUM (test code = 2228) 3.7 MEQ/L 3.5-5.4 CHLORIDE (test code = 2215) 103 MEQ/L 95-107 CARBON DIOXIDE (test code = 2206) 26 MEQ/L 19-31 CALCIUM (test code = 2209) 8.9 MG/DL 8.5-10.5 PROTEIN, TOTAL (test code = 222) 6.9 G/DL 6.1-8.3 ALBUMIN (test code = 2201) 4.4 G/DL 3.5-5.2 CALC GLOBULIN (test code = 2240) 2.5 G/DL 1.9-3.7 CALC A/G RATIO (test code = 2234) 1.8 RATIO 1.0-2.6 BILIRUBIN, TOTAL (test code = 2207) 0.4 MG/DL See_Comment [Automated me ssage] The system which generated this result transmitted reference range: <=1.2. The reference range was not used to interpret this result as normal/abnormal. ALKALINE PHOSPHATASE (test code = 2204) 74 U/L 40-112 AST (test code = 2218) 13 U/L 9-40 ALT (test code = 2219) 10 U/L 5-40 CBC W/AUTO DIFF WITH [id number] 02:05:21* Test Item Value Reference Range Interpretation [...] = 1065) 0.0 /100 WBC'S See_Comment [Automated KKBOXa ge] The system which generated this result [...] 0.00-0.10 ABS NUCLEATED RBCS (test code = 26680) 0.00 K/UL 0.00-0.11 CBC W/AUTO [id number] 00:00:00* Test Item Value Reference Range Interpretation [...] ABS NUCLEATED RBCS (test cod e = 40889) 0.00 K/UL Anirudh BolesCOMPREHENSIVE METABOLIC [id number] 00:00:00* Test Item Value Reference Range Interpretation Comme nts GLUCOSE (test code = 2217) 62 MG/DL BUN (test code = 2208) 9 MG/DL CREATININE (test code = 2214) 0.62 MG/DL eGFR (2020 CKD-EPI) (test code = 49365) 125 ML/MIN/1.73 CALC BUN/CREAT (test code = [...] U/L Anirudh BolesHIV 1/2 4TH GEN, RFLX [id number] 00:00:00* Test Item Value Reference Range Interpretation Comme nts HIV 1/2 4TH GEN, RFLX CONF ( test code = 3514) NON-REACTIVE Anirudh BolesACUTE HEPATITIS [id number] 00:00:00* Test Item Value Reference Range Interpretation Comme nts HEPATITIS A IgM (test code = 70962) NON-REACTIVE HEPATITIS B CORE IgM (test c ode = 4644) NON-REACTIVE HEPATITIS B SURF AG (test co de = 2739) NON-REACTIVE HEPATITIS C ANTIBODY (test c ode = 4675) NON-REACTIVE INTERPRETATION HEPATITIS A: (test code = 2552) (NOTE) INTERPRETATION HEPATITIS B: (test code = 44143) (NOTE) INTERPRETATION HEPATITIS C: (test code = 96694) (NOTE) Anirudh BolesCBC W/AUTO [id number] 00:00:00* Test Item Value Reference Range Interpretation [...] ABS NUCLEATED RBCS (test cod e = 02277) 0.00 K/UL Anirudh BolesCOMPREHENSIVE METABOLIC [id number] 00:00:00* Test Item Value Reference Range Interpretation Comme nts GLUCOSE (test code = 2217) 62 MG/DL BUN (test code = 2208) 9 MG/DL CREATININE (test code = 2214) 0.62 MG/DL eGFR (2020 CKD-EPI) (test code = 84793) 125 ML/MIN/1.73 CALC BUN/CREAT (test code = [...] U/L Anirudh BolesHIV 1/2 4TH GEN, RFLX [id number] 00:00:00* Test Item Value Reference Range Interpretation Comme lv HIV 1/2 4TH GEN, RFLX CONF ( test code = 3514) NON-REACTIVE Anirudh BolesACUTE HEPATITIS [id number] 00:00:00* Test Item Value Reference Range Interpretation Comme nts HEPATITIS A IgM (test code = 38185) NON-REACTIVE HEPATITIS B CORE IgM (test c ode = 4644) NON-REACTIVE HEPATITIS B SURF AG (test co de = 2739) NON-REACTIVE HEPATITIS C ANTIBODY (test c ode = 4675) NON-REACTIVE INTERPRETATION HEPATITIS A: (test code = 2552) (NOTE) INTERPRETATION HEPATITIS B: (test code = 22781) (NOTE) INTERPRETATION HEPATITIS C: (test code = 96297) (NOTE) Anirudh Boles Notes Date/Time Note Provider Source Anirudh Boles [facility], 1928–19832024-04-19 00:00:00 Anirudh Marr [facility]
--- NOTE | 2024-08-24 13:40 | RAD REPORT ---
EXAMINATION: TWO VIEW CHEST XR CLINICAL INDICATION: CHEST PAIN TECHNIQUE: 2 views of the chest was performed. COMPARISON: No prior exam. FINDINGS: The lungs are well inflated and clear. The heart is upper limit of normal in size. No displaced fract ures evident. IMPRESSION: No acute or significant abnormalities.
--- NOTE | 2024-08-24 14:01 | ER ---
Nurse's Notes [facility] Name: Kimmy Archer Age: 29 yrs Sex: Female : 1995 Arrival Date: 08/24/2024 Time: 13:03 Bed 16 Private MD: Diagnosis: Chest pain, unspecified Presentation: 08/24 13:07 Chief complaint: EMS states: toned out for sudden onset of chest pain after a stressful me1 situation. Midsternal, sharp, 8/10 at worst, 5/10 now with SOB. Coronavirus screen: Vaccine status: Patient reports being unvaccinated. Ebola Screen: No symptoms or risks identified at this time. Initial Sepsis Screen: Does the patient meet any 2 criteria? No. Patient's initial sepsis screen is negative. Does the patient have a suspected source of infection? No. Patient's initial sepsis screen is negative. Risk Assessment: Do you want to hurt yourself or someone else? Patient reports no desire to harm self or others. Onset of symptoms was August 24, 2024 at 10:30. 13:07 Method Of Arrival: [place] [facility] [place] Acuity: LILIANA 3 me1 Triage Assessment: 13:11 General: Appears uncomfortable, well groomed, well developed, well nourished, Behavior me1 is cooperative, appropriate for age, anxious. Pain: Complains of pain in chest Pain does not radiate. Pain currently is 5 out of 10 on a pain scale. at worst was 8 out of 10 on a pain scale. Quality of pain is described as sharp, Pain began suddenly, Is continuous. EENT: No signs and/or symptoms were reported regarding the EENT system. Neuro: Level of Consciousness is awake, alert, obeys commands, Oriented to person, place, time, situation, Appropriate for age. Cardiovascular: Patient's skin is warm and dry. Respiratory: Reports shortness of breath Airway is patent Respiratory effort is even, unlabored, Respiratory pattern is regular, symmetrical. GI: No signs and/or symptoms were reported involving the gastrointestinal system. : No signs and/or symptoms were reported regarding the genitourinary system. Derm: Skin is intact, is healthy with good turgor, Skin is pink, warm \T\ dry. Musculoskeletal: No signs and/or symptoms reported regarding the musculoskeletal system. 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 - Infectious Disease History:: Denies. - Social history:: Smoking status: Reported history of juuling and/or vaping. Screenin:13 [facility] ED Fall Risk Assessment (Adult) History of falling in the last 3 months, me1 including since admission No falls in past 3 months (0 pts) Confusion or Disorientation No (0 pts) Intoxicated or Sedated No (0 pts) Impaired Gait No (0 pts) Mobility Assist Device Used No (0 pt) Altered Elimination No (0 pt) Score/Fall Risk Level 0 - 2 = Low Risk Maintained a safe environment, Provided non-skid footwear, Hourly rounding (assess needs \T\ fall precautionary measures) done. Abuse screen: Denies threats or abuse. Nutritional screening: No deficits noted. Tuberculosis screening: No symptoms or risk factors identified. Assessment: 13:13 General: See triage assessment. me1 Vital Signs: 13:07 BP 121 / 77; Pulse 78; Resp 18; Temp 98.3; Pulse Ox 96% ; Weight 83.91 kg; Height 5 ft. me1 9 in. ; Pain 5/10; 13:45 BP 115 / 80; Pulse 77; Resp 16; Temp 98.3; Pulse Ox 97% ; me1 13:07 Body Mass Index 27.32 (83.91 kg, 175.26 cm) me1 13:07 Pain Scale: Adult me1 ED Course: 13:04 Patient arrived in ED. bc6 13:05 Domingo Aviles DO is Attending Physician. ms3 13:07 Latanya Shah, IMELDA is Primary Nurse. me1 13:11 Triage completed. me1 13:11 Arm band placed on Patient placed in an exam room. me1 13:13 Patient has correct armband on for positive identification. Bed in low position. Call me1 light in reach. Side rails up X2. Provided Education on: POC. Verbalized understanding.. Client placed on continuous cardiac and pulse oximetry monitoring. NIBP monitoring applied. athletic monitor on. Pulse ox on. NIBP on. 13:13 No provider procedures requiring assistance completed. me1 13:23 EKG done, by ED staff, reviewed by Domingo Aviles DO. me1 13:28 Chest Pa And Lat (2 Views) XRAY In Process Unspecified. EDMS 13:50 Patient did not have IV access during this emergency room visit. me1 14:00 Darrion Mcgee DO is Referral Physician. ms3 Administered Medications: No medications were administered Medication: 13:13 VIS not applicable for this client. me1 Outcome: 14:00 Discharge ordered by MD. ms3 14:09 Discharged to home ambulatory, with significant other, me1 14:09 Condition: stable 14:09 Discharge instructions given to patient, significant other, Instructed on discharge instructions, follow up and referral plans. Demonstrated understanding of instructions, follow-up care, 14:09 Patient left the ED. me1 Signatures: Dispatcher [employer] EDDomingo Fernandez DO DO ms3 Arlette Encarnacion 6 Latanya Shah, RN RN me1
--- NOTE | 2024-08-24 14:01 | EDPHYS ---
Physician Documentation [facility] Name: Kimmy Archer Age: 29 yrs Sex: Female : 1995 Arrival Date: 08/24/2024 Time: 13:03 Bed 16 Private MD: ED Physician Domingo Aviles HPI: 08/24 14:00 This 29 yrs old Female presents to ER via EMS with complaints of Chest Pain. ms3 14:00 29-year-old female with no past medical history presents to the emergency department ms3 via [facility] for chest pain. Patient states the pain is described as being sharp. 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 Patient states she did experience perioral tingling and carpal spasms. EMS noticed rhythm strip to initially be sinus tachycardia and then became normal sinus.. 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 - Infectious Disease History:: Denies. - Social history:: Smoking status: Reported history of juuling and/or vaping. ROS: 14:00 Constitutional: Negative for fever, and chills. ms3 14:00 Respiratory: Negative for shortness of breath, cough, wheezing, and pleuritic chest pain, Abdomen/GI: Negative for abdominal pain, nausea, vomiting, diarrhea, and constipation, MS/Extremity: Negative for injury and deformity, Skin: Negative for injury, rash, and discoloration, 14:00 Cardiovascular: Positive for chest pain, Exam: 14:00 Constitutional: This is a well developed, well nourished patient who is awake, alert, ms3 and in no acute distress. Cardiovascular: Regular rate and rhythm with a normal S1 and S2. No gallops, murmurs, or rubs. Normal PMI, no JVD. No pulse deficits. Respiratory: Lungs have equal breath sounds bilaterally, clear to auscultation and percussion. No rales, rhonchi or wheezes noted. No increased work of breathing, no retractions or nasal flaring. Abdomen/GI: Soft, non-tender, with normal bowel sounds. No distension or tympany. No guarding or rebound. No evidence of tenderness throughout. Skin: Warm, dry with normal turgor. Normal color with no rashes, no lesions, and no evidence of cellulitis. MS/ Extremity: Pulses equal, no cyanosis. Neurovascular intact. Full, normal range of motion. Neuro: Awake and alert, GCS 15, oriented to person, place, time, and situation. Cranial nerves II-XII grossly intact. Motor strength 5/5 in all extremities. Sensory grossly intact. Cerebellar exam normal. Normal gait. 14:02 ECG was reviewed by the Attending Physician. ms3 Vital Signs: 13:07 BP 121 / 77; Pulse 78; Resp 18; Temp 98.3; Pulse Ox 96% ; Weight 83.91 kg; Height 5 ft. me1 9 in. ; Pain 5/10; 13:45 BP 115 / 80; Pulse 77; Resp 16; Temp 98.3; Pulse Ox 97% ; me1 13:07 Body Mass Index 27.32 (83.91 kg, 175.26 cm) me1 13:07 Pain Scale: Adult me1 MDM: 13:05 Medical Screening Exam initiated ms3 14:00 Differential diagnosis: abnormal EKG, acute myocardial infarction, coronary artery ms3 disease. Data reviewed: vital signs, nurses notes, EKG, radiologic studies, and as a result, I will discharge patient. Independent interpretation of the following test(s) in the Emergency Department EKG: See my EKG interpretation above. Historians other than the Patient: EMS: [facility]. Counseling: I had a detailed discussion with the patient and/or guardian regarding the historical points, exam findings, and any diagnostic results supporting the discharge/admit diagnosis, radiology results, the need for outpatient follow up, to return to the emergency department if symptoms worsen or persist or if there are any questions or concerns that arise at home. Special discussion: I discussed with the patient/guardian in detail that at this point there is no indication for admission to the hospital. It is understood, however, that if the symptoms persist or worsen the patient needs to return immediately for re-evaluation. ED course: Discussed EKG and chest x-ray findings with patient. Patient to follow-up with primary care physician 2 to 3 days. Patient understands and agrees with plan. All questions were answered. Return precautions discussed include worsening symptoms, or any other concerns. 08/24 13:05 Order name: Chest Pa And Lat (2 Views) XRAY; Complete Time: 13:43 ms3 08/24 13:05 Order name: EKG; Complete Time: 13:05 ms3 08/24 13:05 Order name: EKG - Nurse/Tech; Complete Time: 13:23 ms3 EC:02 Rate is 77 beats/min. Rhythm is regular. QRS [place] is Normal. MA interval is normal. ms3 Clinical impression: Normal ECG. Interpreted by me. Reviewed by me. Administered Medications: No medications were administered Disposition Summary: 08/24/24 14:00 Discharge Ordered Notes: Location: Home ms3 Condition: Stable ms3 Diagnosis - Chest pain, unspecified ms3 Followup: ms3 - With: Darrion Mcgee DO - When: 2 - 3 days - Reason: Recheck today's complaints Discharge Instructions: - Discharge Summary Sheet ms3 - Nonspecific Chest Pain, Adult ms3 Forms: - Medication Reconciliation Form ms3 - Antibiotic Education ms3 - Prescription Opioid Use ms3 - Patient Portal Instructions ms3 - Leadership Thank You Letter ms3 Signatures: Dispatcher [employer] Domingo Arceo DO DO ms3 Latanya Shah, RN RN me1
[2024-08-24 14:55] VITALS: BP 115/80; TEMP 98.3; O2SAT 97
--- NOTE | 2024-08-25 12:37 | EKG ---
Test Date: 2024-08-24 Test Time: 13:17:40 Dinkey Driver: MEASUREMENT RESULTS: Intervals: Rate: 77 MN: 172 QRSD: 106 QT: 388 QTc: 439 [place]: P: 58 MN: 172 QRS: 45 T: 24 INTERPRETIVE STATEMENTS: Normal sinus rhythm Possible Left atrial enlargement Incomplete right bundle branch block Borderline ECG No previous ECG available for comparison Electronically Signed On 08-25-24 12:36:09 CDT by Mario Stewart
== END 2024-08-24 14:09 | disposition home or self-care (01) ==
LOC: ER 13:03
DX: R07.9 Chest pain, unspecified (principal)
CPT/HCPCS: 71046; 93005; 99284